=== PATIENT | male | born 1955 | race Caucasian/White ===

== ENCOUNTER 2017-08-22 15:30 | Outpatient (RCR) | payer OTHER, SELFPAY ==
--- NOTE | 2017-05-19 16:09 | HP.PTEVAL_ITS ---
Patient's Visit Information COLIN GRAFF is a 62 year old M referred to Physical Therapy by KRYSTEN Haley with a diagnosis of RTKR. Date of Evaluation: 05/19/17 Physical Therapist: Mamie Aguirre Visit Plan Frequency: 3x /Week Duration: 4-6 Weeks Plan: RIGHT TKR REHAB PROTOCOL. - Subjective Subjective: DIAGNOSIS; RIGHT TKR 05/14/17 (5 DAYS PO). Work/Leisure: RETIRED. Present symptoms: RIGHT KNEE PAIN AND SWELLING. CHRONIC L LOW BACK, BUTTOCK AND THIGH PAIN, NUMBNESS AND TINGLING. CHRONIC RIGHT TOE NUMBNESS SINCE BEFORE LUMBAR SURGERY BY DR. CHUNG ABOUT 18 MONTHS AGO. Present since : CHRONIC. Pain Scale: WORST 8/10. LEAST 2/10. Currently: 11/06. Commenced as a result of: ARTHRITIS. Symptoms at onset: RIGHT KNEE. Worse: BENDING AND STRAIGHTENING IT. PROLONGED WEIGHT BEARING. Better: REST, ICE AND ELEVATION. Gait: USING FWW. PMH: L TKR 06/26/16. LUMBAR SURGERY ABOUT 18 MONTHS AGO. PATIENT REPORTS HE IS IN GOOD HEALTH OTHERWISE. OTHER: PATIENT REPORTS HE WANTS TO TAKE THERAPY AT HIS OWN PACE. STATES HE HAS BEEN WORKING HARD ON HIS HOME EX'S BUT HE HAD TO TAKE IT EASY FOR AWHILE BECAUSE HE WAS HAVING A LOT OF BLEEDING FROM THE DISTAL ASPECT OF HIS NCISION. HE REPORTS THE BLEEDING SEEMS TO HAVE STOPPED YESTERDAY AND IT IS NOT LOOKING RED AROUND THE INCISION. PATIENT REPORTS THAT QUITE FRANKLY HIS BACK IS HIS BIGGEST PROBLEM AT THIS POINT NOT HIS KNEE. - Objective Sitting Posture: POOR. Standing Posture: POOR. INCREASED TRUNK FLEXION. Other Observations: INDEP GAIT INTO PT WITH FWW WBAT ON RIGHT LE. LEANING HEAVILY ON WALKER AND DECREASED WEIGHT BEARING TIME ON RIGHT LE. UE DEPENDENT TO TRANSFER FROM SIT TO STAND. USES HANDS AND/OR LLE TO ASSIST RIGHT LE ON/OFF TREATMENT TABLE. Motor deficit: LLE WFL. RIGHT LE: HIP 2+/5, KNEE EXT 2-/5, KNEE FLEX 2-/5, ANKLE 5/5. ROM deficit: LEFT KNEE ROM IN SUPINE WITH A HEEL SLIDE = FULL EXT TO 120 DEG FLEX. R KNEE -25 DEG EXT TO 65 DEG FLEX. Core strength: POOR. Palpation/OTHER: THERE IS A LARGE AMOUNT OF ECYMOSIS IN THE RIGHT LATERAL AND POSTERIOR THIGH REGION. MODERATE EDEMA OF THE RIGHT KNEE AND HIS INCISION IS COVERED. HE IS WEARING IMELDA HOSE ALSO. PATIENT GRIMANCES WITH C/ O BACK PAIN > RIGHT KNEE PAIN WITH TRANSFERS FROM SIT TO SUPINE AND REVERSE. SUSPECT BACK PAIN MAY BE A LIMITING FACTOR IN RIGHT KNEE REHAB. THER ACT - REVIEWED HEP AND EX GUIDELINES. PATIENT COMMUNICATES A GOOD UNDERSTANDING. - Goals Goal 1:: INDEP AND SAFE GAIT ON ALL SURFACES WITH LEAST ASSISTIVE DEVICE Goal Time Frame: 4-6 Weeks Goal 2:: DECREASED RIGHT KNEE PAIN AND SWELLING Goal Time Frame: 4-6 Weeks Goal 3:: INCREASE RIGHT KNEE FUNCTIONAL STRENGTH Goal Time Frame: 4-6 Weeks Goal 4:: INCREASE RIGHT KNEE FUNCTIONAL ROM Goal Time Frame: 4-6 Weeks Goal 5:: INDEP HEP Goal Time Frame: 4-6 Weeks - Rehabilitation Potential Rehabilitation Potential: Good - Anticipated Interventions Patient/Client Instruction: Educate patient on: Condition, Plan of Care, Risk Factors, Benefits of Fitness Program For the Purpose of:: To improve self management Therapeutic Exercise to Include: Strength training, Flexibilty training, Gait and locomotor training, Passive ROM, Active ROM For the Purpose of:: To increase ROM, To improve performance and independence with ADL's, To improve ability of physical actions for home/community/work/ leisure, To improve gait and locomotor functions Cryotherapy (ice pack, ice massage): Yes For the Purpose of:: To decrease pain, To decrease swelling/inflammation Thank you for the opportunity to evaluate your patient. For Medicare and Medicare HMO plans, please review the plan of care and approve it. It will need to be FAXED BACK to us at [phone] for Medicare purposes. Please let me know if there are questions or concerns regarding this plan of care. Physician Signature: Date:
--- NOTE | 2017-06-16 07:58 | HP.PTREVAL_ITS ---
KRYSTEN Haley, It has been my pleasure to treat COLIN GRAFF over the last 11 visits for RTKR. Please see the progress note below for an update on the physical therapy plan of care! Subjective: Pt. reports I am getting better, but I am still realyl sore. He continues to c/o increased edema and soreness at prepatellar region. It just feels so tight. He reports being HEP compliant. He is no longer used AD with gait. Objective/Function: ROM- 0-0-100deg PROM, AROM 0-2-94deg. MMT- 4-/5 throughout. Pt. has increased tenderness to lateral HS at distal insertion. Pt. continues to have increased edema, brawny like feel, similar to previous edema with LLE. GAIT: Pt. nolasco have antalgic pattern during R stance phase, he is able to ambulate without AD. STAIRS: Pt. is able to complete with reciprocal pattern with 2 HR, difficulty with descending with increasred R hip hike to complete. Plan Plan: POC extended 2-3 per week for 3-4 weeks to progress ROM, decrease edema, improve gait and progress with strengthening in order to increase overall functional mobility and decrease pain. Goals Goal 1:: INDEP AND SAFE GAIT ON ALL SURFACES WITH LEAST ASSISTIVE DEVICE Goal Time Frame: 4-6 Weeks Goal Progress: Progressing Goal 2:: DECREASED RIGHT KNEE PAIN AND SWELLING Goal Time Frame: 4-6 Weeks Goal Progress: Progressing Goal 3:: INCREASE RIGHT KNEE FUNCTIONAL STRENGTH Goal Time Frame: 4-6 Weeks Goal Progress: Progressing Goal 4:: INCREASE RIGHT KNEE FUNCTIONAL ROM Goal Time Frame: 4-6 Weeks Goal Progress: Progressing Goal 5:: INDEP HEP Goal Time Frame: 4-6 Weeks Goal Progress: Goal Met Anticipated Interventions Patient/Client Instruction: Educate patient on: Condition, Plan of Care, Risk Factors, Benefits of Fitness Program For the Purpose of:: To improve self management Therapeutic Exercise to Include: Strength training, Flexibilty training, Gait and locomotor training, Passive ROM, Active ROM For the Purpose of:: To increase ROM, To improve performance and independence with ADL's, To improve ability of physical actions for home/community/work/ leisure, To improve gait and locomotor functions Cryotherapy (ice pack, ice massage): Yes For the Purpose of:: To decrease pain, To decrease swelling/inflammation Please do not hesitate to contact me at [phone] by phone or Fax: if you have questions or concerns regarding this new plan of care! Sincerely, Rex Cole
--- NOTE | 2017-07-18 16:25 | HP.PTREVAL_ITS ---
KRYSTEN Haley, It has been my pleasure to treat COLIN GRAFF over the last 20 visits for RTKR. Please see the progress note below for an update on the physical therapy plan of care! Subjective: PATIENT REPORTS HIS BACK IS JUST ON FIRE. APPOINTMENT WITH DR. MICHELLE MILLER FOR LUMBAR SPINE NEXT FRIDAY. REPORTS HIS NECK IS A LOT BETTER. FOLLOW UP FOR RIGHT TKR ISN'T UNTIL AUG [address] PRIETO. PATIENT REPORTS HE LIKES COMING TO PT AND HIS KNEE GETS A LITTLE BETTER EACH VISIT. Objective/Function: UPON EXAM, PATIENT IS UNABLE TO TRANSFER FROM SIT TO STAND WITHOUT UE ASSIST. HE AMBULATES INDEP'LY INTO PT WITHOUT ANY ASSISTIVE DEVICES WITH A VERY ANTALGIC GAIT PATTERN LIMPING ON THE RIGHT LE AND WITH INCREASED TRUNK FLEXION. HE DOES NOT APPEAR TO BE COMFORTABLE IN ANY POSITION (SITTING, STANDING OR LYING DOWN). HE HAS GOOD RIGHT KNEE EXTENSION ROM BUT FLEXION WAS MEASURED IN SITTING AN LYING AND I WAS ONLY ABLE TO GET HIM TO 113 DEG FLEX TODAY. HE DID NOT HAVE MUCH WARM UP BEFORE MEASURMENT BECAUSE HIS BACK WAS TOO PAINFUL TO EVEN DO THE NUSTEP. HE HAS MODERATE RIGHT KNEE EDEMA AND HAS RIGHT ANTERIOR KNEE TENDERNESS BUT HIS INCISION LOOKS GOOD WITHOUT ANY SIGNS OF INFECTION. HE DOES HAVE DECREASED SCAR MOBILITY IN THE DISTAL 1/4 OF HIS INCISION. PATIENTS BACK PAIN REALLY APPEARS TO BE EFFECTING HIS KNEE REHAB Plan Plan: RECOMMEND CONTINUED PT 2-3 TIMES A WEEK X 10-12 MORE VISITS TO PROGRESS ROM, DECREASE EDEMA, IMPROVE GAIT AND PROGRESS STRENGTHENING IN ORDER TO IMPROVE OVERALL FUNCTIONAL MOBILITY AND DECREASE PAIN. PATIENT IS AGREEABLE. Goals Goal 1:: INDEP AND SAFE GAIT ON ALL SURFACES WITH LEAST ASSISTIVE DEVICE Goal Time Frame: 4-6 Weeks Goal Progress: Progressing Goal 2:: DECREASED RIGHT KNEE PAIN AND SWELLING Goal Time Frame: 4-6 Weeks Goal Progress: Progressing Goal 3:: INCREASE RIGHT KNEE FUNCTIONAL STRENGTH Goal Time Frame: 4-6 Weeks Goal Progress: Progressing Goal 4:: INCREASE RIGHT KNEE FUNCTIONAL ROM Goal Time Frame: 4-6 Weeks Goal Progress: Progressing Goal 5:: INDEP HEP Goal Time Frame: 4-6 Weeks Goal Progress: Goal Met Anticipated Interventions Patient/Client Instruction: Educate patient on: Condition, Plan of Care, Risk Factors, Benefits of Fitness Program For the Purpose of:: To improve self management Therapeutic Exercise to Include: Strength training, Flexibilty training, Gait and locomotor training, Passive ROM, Active ROM For the Purpose of:: To increase ROM, To improve performance and independence with ADL's, To improve ability of physical actions for home/community/work/ leisure, To improve gait and locomotor functions Cryotherapy (ice pack, ice massage): Yes For the Purpose of:: To decrease pain, To decrease swelling/inflammation Please do not hesitate to contact me at [phone] by phone or Fax: if you have questions or concerns regarding this new plan of care! Sincerely, Mamie Shrestha
--- NOTE | 2017-08-22 16:22 | HP.PTDCSUM ---
HP - PT D/C Summary It has been my pleasure to treat COLIN GRAFF under orders from KRYSTEN Haley, for the diagnosis of RTKR for a total of 30 visit(s). Discharge Date: 08/22/17 Please see the following information for a summary of their discharge status. - Subjective Subjective: PATIENT REPORTS HE HAS BEEN WORKING HARD ON HIS KNEE AND IT IS GETTING BETTER. HE REPORTS HIS BACK IS A BIGGER PROBLEM THAN HIS KNEE AND HE IS NOT CONCERNED ABOUT HIS KNEE. PATIENT IS EXPRESSING GREAT APPRECIATION FOR THE CARE HE HAS RECEIVED HERE AND STATES THAT HE FEELS WE GO ABOVE AND BEYOND. - Pain RIGHT KNEE Pain Intensity (Out of 10): Unrated bilat LB Pain Intensity (Out of 10): Unrated bilat. buttock Pain Intensity (Out of 10): Unrated bilat thighs Pain Intensity (Out of 10): Unrated r foot Pain Intensity (Out of 10): Unrated - Overall Improvement % Improvement: 50 - Objective Objective/Function: ALL GOALS MET. RIGHT KNEE ROM = FULL EXTENSION TO 117 DEG FLEX (LEFT KNEE WAS MEASURED FOR COMPARISON AND IT BENDS TO 120 DEG) PATIENT COMMUNICATES A GOOD UNDERSTANDING OF ALL INSTRUCTIONS GIVEN. - Goals Goal 1:: INDEP AND SAFE GAIT ON ALL SURFACES WITH LEAST ASSISTIVE DEVICE Goal Progress: Goal Met Goal 2:: DECREASED RIGHT KNEE PAIN AND SWELLING Goal Progress: Goal Met Goal 3:: INCREASE RIGHT KNEE FUNCTIONAL STRENGTH Goal Progress: Goal Met Goal 4:: INCREASE RIGHT KNEE FUNCTIONAL ROM Goal Progress: Goal Met Goal 5:: INDEP HEP Goal Progress: Goal Met - Plan Plan: D/C - D/C Information If there are questions or concerns regarding this patient's physical therapy, please feel free to call me at [phone]. Thank you for the referral of this patient. Sincerely, Mamie Shrestha
== END 2017-08-22 19:00 | disposition home or self-care (01) ==
LOC: PT 15:30
PROVIDERS: Family Provider Family Medicine; PCP Family Medicine; Visit Provider Physician Assistant Surgical
DX: M17.11 Unilateral primary osteoarthritis, right knee (principal)
CPT/HCPCS: 97016; 97110; 97162; 97530

== ENCOUNTER 2017-12-17 08:00 | Outpatient (RCR) | payer OTHER, SELFPAY ==
--- NOTE | 2017-10-15 09:28 | HP.PTEVAL_ITS ---
Patient's Visit Information COLIN GRAFF is a 62 year old M referred to Physical Therapy by NITIN GARNETT with a diagnosis of OTHER SPECIFIED AFTERCARE FOLLOWING SURGERY. Date of Evaluation: 10/15/17 Physical Therapist: Cameron Pérez PT, - Visit Plan Frequency: 3x /Week Duration: 3 Weeks Plan: POSTURAL EX'S,DLS ,LE FLEXABLITY ,CONDITIONING - Subjective Subjective: This 62 y/o male presents to physical therapy with lumbar decompression September 17 2017 byDR Calixto Tristan at [facility]. Patient had lumbar decompression October 2015.Patient d/c to next day with lumbar brace with walker few days.Patient has parathesia in bilateral legs and right foot and calcaneal left heel. Patient had heel pain prior to surgery.. Patient has orthotics for shoes. Patient to wean from brace,and advance lumbar ROM 3weeks as tolerated,10# restriction. Symptoms worse with walking,standing affects ADL' s and affects housework tasks. Patient better with rest. Patient had right TKR Apr 2017,left TKR 2015.Bowel/bladder good. Coughing /sneezing -. Patient recover affects quality of life.Sleeping good. VOCATION: retired. SOCAIL: - Pain Bilateral Back Pain Intensity (Out of 10): 1 Pain Intensity Range: 10 Left Foot Pain Intensity (Out of 10): 5 Pain Intensity Range: 10 Comment: heel - Objective POSTURE: mild foward posture. SKIN: inscion well approximate. PALPATION: mild tenderness paraspinals. GAIT: mild foward posture reciprocal pattern. NEURO: c /o parathesia bilateral legs ,light touch inact,reflexes L3-4,L4-5,L5-S1. FLEXABLITY: hams min tight. MMT:quads/hams 4/5,hip flexion 4-/5 ankle 5/5. LUMBAR ROM: flexion mod loss,extension mod loss,side glides min/mod loss. SYMMTRIES: alighn - Special Tests L/S Slump test left side: Negative L/S Slump test right side: Negative L/S Left Straight Leg Raise: Negative L/S Right Straight Leg Raise: Negative - Goals Goal 1:: Independant with HEP Goal Time Frame: 4-6 Weeks Goal 2:: Independant with posture/body mechanics for ADL'S Goal Time Frame: 4-6 Weeks Goal 3:: Patient decrease symptoms by 50% or greater with walking and standing Goal Time Frame: 4-6 Weeks Goal 4:: Patient to improve lumbar ROM min loss for function of recovery Goal Time Frame: 4-6 Weeks Goal 5:: Patient be able to perform ADL'S and light housework tasks with min limitations Goal Time Frame: 2-4 Weeks - Rehabilitation Potential Physical Therapy Diagnosis: This patient underwent s/p lumbar decompression with pain ,parathesia in legs,with decrease lumar ROM ,strength thus impairs ADL 'S and housework tasks Rehabilitation Potential: Good - Anticipated Interventions Patient/Client Instruction: Educate patient on: Condition, Plan of Care For the Purpose of:: To decrease pain, To improve ability to perform ADL's, To increase tolerance to activity/condition/position, To improve ability of physical actions for home/community/work/leisure, To improve health of tissue, To decrease soft tissue restriction, To increase flexibility/ROM, To improve endurance, To improve health and function, To improve ability to perform tasks related to life management Therapeutic Exercise to Include: Strength training, Endurance training, Body mechanics, Postural training, Flexibilty training, Dynamic Lumbar Stabilization For the Purpose of:: To decrease pain, To increase ROM, To improve muscle performance and motor function, To increase tolerance to activity/condition/ position, To improve ability of physical actions for home/community/work/leisure , To improve health of tissue, To decrease soft tissue restriction, To increase flexibility/ROM, To improve ability to perform tasks related to life management For the Purpose of:: To decrease pain, To increase ROM, To improve muscle performance and motor function, To increase tolerance to activity/condition/ position, To improve performance and independence with ADL's, To improve ability of physical actions for home/community/work/leisure, To improve health of tissue, To decrease soft tissue restriction, To improve ability to perform tasks related to life management TENS: Yes IF ES: Yes Cryotherapy (ice pack, ice massage): Yes For the Purpose of:: To decrease pain, To increase ROM, To improve nutrient delivery to tissue, To increase oxygenation perfusion, To improve health of tissue, To decrease soft tissue restriction Thank you for the opportunity to evaluate your patient. For Medicare and Medicare HMO plans, please review the plan of care and approve it. It will need to be FAXED BACK to us at [phone] for Medicare purposes. Please let me know if there are questions or concerns regarding this plan of care. Physician Signature: Date:
--- NOTE | 2017-12-17 09:27 | HP.PTDCSUM ---
HP - PT D/C Summary It has been my pleasure to treat COLIN GRAFF under orders from NITIN GARNETT, for the diagnosis of OTHER SPECIFIED AFTERCARE FOLLOWING SURGERY for a total of 22 visit(s). Discharge Date: 12/17/17 Please see the following information for a summary of their discharge status. - Subjective Subjective: Back pain is okay ,but my knees are inflammed especially my right . Parathesia in my legs are more today feet . Although ,I have been very active aroind house mowing grass . Symptoms affect my ADL'S and housework tasks. Doesnt see Dr sandoval Mar.More stiffness in lumbar - Pain Bilateral Back Pain Intensity (Out of 10): 1 Left Foot Pain Intensity (Out of 10): 0 - Overall Improvement % Improvement: 50 - Objective Objective/Function: POSTURE:MILD FOWARD POSTURE. GAIT:MILD FOWARD POSTURE ANTALGIC GAIT. LUMBAR ROM: FLEXION WNL,EXTENSION MIN LOSS,SIDE GLIDES MIN LOSS ,PAIN WITH EXTENSION. MMT: QUADS/HAMS /HIP 4/5 ,ANKLE 4/5 - Goals Goal 1:: Independant with HEP Goal Progress: Goal Met Goal 2:: Independant with posture/body mechanics for ADL'S Goal Progress: Goal Met Goal 3:: Patient decrease symptoms by 50% or greater with walking and standing Goal Progress: Progressing Goal 4:: Patient to improve lumbar ROM min loss for function of recovery Goal Progress: Progressing Goal 5:: Patient be able to perform ADL'S and light housework tasks with min limitations Goal Progress: Progressing - Plan Plan: D/C TO HEP and HP - D/C Information Discharge Comments: HEP If there are questions or concerns regarding this patient's physical therapy, please feel free to call me at [phone]. Thank you for the referral of this patient. Sincerely, Cameron Pérez, PT,
== END 2017-12-17 19:00 | disposition home or self-care (01) ==
LOC: PT 08:00
PROVIDERS: Family Provider Family Medicine; PCP Family Medicine
DX: Z48.89 Encounter for other specified surgical aftercare (principal)
CPT/HCPCS: 97014; 97110; 97162; 97530; G0283

== ENCOUNTER → 2018-01-15 10:04 | Outpatient (CLI) | payer OTHER, SELFPAY ==
[2018-01-15 12:46] LABS: Anion Gap 7 (5-15); BUN 12 mg/dL (7-18); BUN/Creat Ratio 11.7 RATIO (10-20); Chloride 106 mmol/L (98-107); Cholesterol 171 mg/dL (200); Creatinine, Serum 1.03 mg/dL (0.70-1.30); EST Glomerular Filtration Rate 77 mL/min (>60); Est Glom Filt Rate - Afr Amer 93 mL/min (>60); Glucose 96 mg/dL (74-106); High Density Lipoprotein 45 mg/dL; PSA,Total - Annual Screen 0.53 ng/mL (0.00-4.00); Potassium 4.1 mmol/L (3.5-5.1); Sodium Level 142 mmol/L (136-145); Thyroid Stim Hormone (TSH) 3.29 uIU/mL (0.358-3.74); Triglycerides 61 mg/dL; Very Low Density Lipoprotein 12 mg/dL (5-40)
[2018-01-16 08:12] LABS: Vitamin D,25 Hydroxy 29.4 ng/mL (29.95-100.01)
== END ==
PROVIDERS: Family Provider Family Medicine; PCP Family Medicine; Visit Provider Family Medicine
DX: Z00.00 Encounter for general adult medical examination without abnormal findings (principal)
CPT/HCPCS: 36415; 80048; 80061; 82306; 84153; 84443; G0103

== ENCOUNTER 2018-05-13 01:10 | Emergency (ER) | payer MEDICARE, OTHER, SELFPAY ==
[2018-05-13 01:11] VITALS: BP 157/83; PULSE 64; RESP 18; TEMP 36.5; O2SAT 97; BMI 34.4
[2018-05-13] MEDS: Ketorolac 30 MG/ML Syringe IV (01:35)
[2018-05-13 01:38] LABS: Absolute Lymphocyte Count 2.14 X10^3/ul (0.83-4.51); Absolute Neutrophil Count 3.4 X10^3/uL (2.0-7.7); Basophil# 0.07 X10^3/uL; Eosinophil# 0.44 X10^3/uL; Eosinophils% 6.4 % (0-5); Hematocrit 39.6 % (40-54); Hemoglobin 13.9 g/dl (13.0-16.5); Lymphocyte # 2.14 X10^3/ul (4.0); Lymphocyte % 31.2 % (19-41); Mean Corp Hgb Conc 35.1 g/gl (32-36); Mean Corpuscular Hgb 33.2 pg (27.0-32.0); Mean Corpuscular Volume 94.5 fL (80-94); Mean Platelet Vol. 9.3 fl (6.2-12.0); Monocyte# 0.82 X10^3/uL; Neutrophil # 3.37 X10^3/uL (2.7-7.7); Neutrophil % 49.1 % (47-70); Platelet Count 248 K/mm3 (150-450); RBC Distribution Width CV 12.8 % (11.6-14.6); Red Blood Count 4.19 M/mm3 (4.6-6.2); White Blood Count 6.9 K/mm3 (4.4-11.0)
[2018-05-13 01:45] LABS: AST(SGOT) 16 U/L (15-37); Alanine Aminotransfer ALT/SGPT 25 U/L (16-61); Albumin, Serum 3.6 g/dL (3.2-5.0); Alkaline Phosphatase 97 U/L (45-117); Anion Gap 6 (5-15); BUN 14 mg/dL (7-18); BUN/Creat Ratio 11.8 RATIO (10-20); Calcium,Total 8.9 mg/dL (8.5-10.1); Chloride 105 mmol/L (98-107); Creatinine, Serum 1.19 mg/dL (0.70-1.30); EST Glomerular Filtration Rate 65 mL/min (>60); Est Glom Filt Rate - Afr Amer 79 mL/min (>60); Estimated Creatinine Clearance 71.95 ml/min; Globulin 3.7 g/dL (2.2-4.2); Glucose 109 mg/dL (74-106); Lipase 166 U/L (73-393); Potassium 3.8 mmol/L (3.5-5.1); Protein, Total 7.3 g/dL (6.4-8.2); Sodium Level 142 mmol/L (136-145)
[2018-05-13 01:54] LABS: POSITIVE COUNT NO; POSITIVE DIFFERENTIAL NO; POSITIVE MORPHOLOGY NO
--- NOTE | 2018-05-13 02:11 | ED.DCSUM_ITS ---
- ER Visit Summary Date of Service: 05/13/18 Chief Complaint: Abdominal pain History of Present Illness: The patient is a 63 M who presents with abdominal pain. He has a history of gallstones which were seen on an MRI of his back but he has never had symptoms. Last night after eating pizza he developed right upper quadrant abdominal pain. He describes this as sharp. It was more severe at home but he only complains of mild discomfort currently. His pain gradually progressed over the course of 2 hours and is been present for a total of about 5 hours. He did vomit once. No fevers chest pain shortness of breath diarrhea. Physical Examination: Afebrile vitals are unremarkable Moist mucous the rate and rhythm Lungs clear Abdomen soft nondistended he does have some right upper quadrant abdominal tenderness without guarding with rebound no Brown's sign Alert Test Results: CBC CMP and lipase are normal. Emergency Department Course and Treatment: Patient's symptoms were already improving prior to the time of my evaluation. He has no fever or tachycardia. His laboratory studies are unremarkable. He has no leukocytosis or evidence of biliary obstruction. I do not believe he has acute cholecystitis. He was treated with IV Toradol here. He is asymptomatic on reevaluation. We discussed dietary restrictions and supportive care. I offered a surgical referral to discuss surgical options should symptoms continue. Patient states he would prefer to follow-up with his primary care physician for this. He was instructed on signs and symptoms to monitor for, conditions under which to return to the emergency department and was discharged home. Treatment Plan: [] Disposition: Discharge Impression: Biliary colic This note was generated with [employer] dictation software. It may contain incorrect words, spelling, and punctuation that were not noted in review of the chart prior to signing ED Disposition - Plan for ED Patient: Chief Complaint: Abd Pain Referrals: Jaxson Galvan MD [Primary Care Provider] -
--- NOTE | 2018-05-13 02:11 | ED.DEP ---
ED Disposition - Plan for ED Patient: Chief Complaint: Abd Pain Instructions: What are Gallstones?, Treating Gallstones Referrals: Jaxson Galvan MD [Primary Care Provider] -
[2018-05-13 02:18] VITALS: PULSE 59; RESP 16; O2SAT 98
== END 2018-05-13 02:20 | disposition home or self-care (01) ==
LOC: ED 01:51
PROVIDERS: Emergency Provider Emergency Medicine; Family Provider Family Medicine; PCP Family Medicine
DX: K80.50 Calculus of bile duct without cholangitis or cholecystitis without obstruction (principal); Z79.82 Long term (current) use of aspirin; Z79.899 Other long term (current) drug therapy
CPT/HCPCS: 80053; 83690; 85025; 96374; 99283; A4216

== ENCOUNTER 2018-06-20 19:56 | Emergency (ER) | payer MEDICARE, OTHER, SELFPAY ==
[2018-06-17 10:43] VITALS: BMI 32.2
[2018-06-20 19:57] VITALS: BP 109/62; PULSE 54; RESP 17; TEMP 37.1; O2SAT 99; BMI 33.3
[2018-06-20] MEDS: Ondansetron 4 MG/2 ML Vial IV (20:19)
--- NOTE | 2018-06-20 20:26 | US_ITS ---
STUDY: ULTRASOUND GALLBLADDER REASON FOR VISIT: Male, 63 years old. Abdominal pain. TECHNIQUE: Ultrasound evaluation of the gallbladder was performed with real-time and static clement-scale imaging. TECHNICAL QUALITY: Adequate. COMPARISON: None. FINDINGS: The liver is normal in size and echogenicity, measuring 17.4 cm. There is no intrahepatic biliary duct dilation. Gallbladder: Normal distended gallbladder. The gallbladder wall measures 3 mm. There is a positive sonographic Brown's sign. There is no pericholecystic fluid. There are multiple stones in the gallbladder. Common Bile Duct (C.B.D.): The common bile duct measures 9 mm. Shadowing stone is identified in the common duct. The right kidney is normal in size and echogenicity, measuring 12 x 5.3 x 5.8 cm. Renal cortical thickness is normal, measuring 1.9 cm. There is no mass, stone, or hydronephrosis. There is a 3.9 x 3.9 cm upper pole renal cyst. There is a 1.5 x 1.3 cm cyst in the midpole. US/Gallbladder IMPRESSION: 1. Cholelithiasis and choledocholithiasis. Positive sonographic Brown's sign is consistent with acute cholecystitis. 2. Right renal cysts. Electronically Signed: Hailey Major MD at 21:59 EST Tel , Service support ,
[2018-06-20 20:33] VITALS: BP 148/65; PULSE 49; RESP 22; O2SAT 100
[2018-06-20] MEDS: HYDROmorphone 1 MG/ML Syringe 0.5 MG IV (20:33)
[2018-06-20] MEDS: 0.9% Normal Saline 1,000 ML 150 ML IV (20:33)
[2018-06-20 20:38] LABS: Absolute Lymphocyte Count 3.33 X10^3/ul (0.83-4.51); Absolute Neutrophil Count 6.3 X10^3/uL (2.0-7.7); Basophil# 0.13 X10^3/uL; Basophil% 1.1 % (0-1); Eosinophil# 0.36 X10^3/uL; Eosinophils% 3.2 % (0-5); Hemoglobin 13.4 g/dl (13.0-16.5); Lymphocyte # 3.33 X10^3/ul (4.0); Lymphocyte % 29.4 % (19-41); Mean Corp Hgb Conc 34.4 g/gl (32-36); Mean Corpuscular Hgb 32.2 pg (27.0-32.0); Mean Corpuscular Volume 93.8 fL (80-94); Mean Platelet Vol. 9.6 fl (6.2-12.0); Monocyte# 1.14 X10^3/uL; Monocyte% 10.1 % (0-10); Neutrophil # 6.32 X10^3/uL (2.7-7.7); Neutrophil % 55.8 % (47-70); Platelet Count 246 K/mm3 (150-450); RBC Distribution Width CV 12.3 % (11.6-14.6); RBC Distribution Width SD 41.4 fl (35.1-43.9); Red Blood Count 4.16 M/mm3 (4.6-6.2); White Blood Count 11.3 K/mm3 (4.4-11.0)
[2018-06-20 20:39] LABS: AST(SGOT) 15 U/L (15-37); Alanine Aminotransfer ALT/SGPT 22 U/L (16-61); Albumin, Serum 3.5 g/dL (3.2-5.0); Alkaline Phosphatase 89 U/L (45-117); Anion Gap 9 (5-15); BUN 16 mg/dL (7-18); BUN/Creat Ratio 13.9 RATIO (10-20); Calcium,Total 8.8 mg/dL (8.5-10.1); Chloride 102 mmol/L (98-107); Creatinine, Serum 1.15 mg/dL (0.70-1.30); EST Glomerular Filtration Rate 68 mL/min (>60); Est Glom Filt Rate - Afr Amer 82 mL/min (>60); Estimated Creatinine Clearance 74.46 ml/min; Glucose 110 mg/dL (74-106); Lipase 127 U/L (73-393); POSITIVE COUNT NO; POSITIVE DIFFERENTIAL NO; POSITIVE MORPHOLOGY NO; Potassium 3.7 mmol/L (3.5-5.1); Protein, Total 7.5 g/dL (6.4-8.2); Sodium Level 137 mmol/L (136-145)
[2018-06-20] MEDS: HYDROmorphone 0.5 MG/0.5 ML SYRINGE IV (21:02)
[2018-06-20 22:12] VITALS: BP 134/80; PULSE 56; RESP 16; O2SAT 93
--- NOTE | 2018-06-20 22:49 | ED.DCSUM_ITS ---
- ER Visit Summary Date of Service: 06/20/18 Chief Complaint: Abdominal pain History of Present Illness: The patient is a 48 M who had a gallbladder attack approximate 1 month ago. Patient had been doing well until this week when he had 3 episodes of right upper quadrant pain with nausea and vomiting. Tonight's episode would not resolve. He has not been eating much this week because he did not want to trigger an attack. He has an appointment to see Dr. Robbins on July 01. Patient is currently noted to be on Zithromax for strep throat. Past history is otherwise significant for back pain and BPH. Physical Examination: Vital signs are unremarkable. Patient is lying in the bed, rolling back and forth. Head neck examination grossly unremarkable. Heart is regular rate and rhythm. Lung sounds are clear. Abdomen is tender with guarding in the right upper quadrant. Hypoactive bowel sounds are present. No overlying skin changes noted. Test Results: CBC was a white count 11.3. Chemistry studies unremarkable. LFTs significant for total bili of 1.3 and a direct bili of 0.4. EKG is sinus bradycardia at 49 bpm with single PVC. No acute ischemia. Right upper quadrant ultrasound shows cholelithiasis and choledocholithiasis with sonographic Brown sign. Common bile duct is measuring 9 mm. There is a stone identified in the common bile duct. Emergency Department Course and Treatment: Patient received 2 doses of IV Dil audid along with Zofran here. On repeat evaluation pain is improved but still present. I spoke with Dr. Espinoza, on-call for surgery. He states there is nobody available for an ERCP and the patient needs transferred. Patient is given a dose of meropenem here. He lists an allergy to penicillin, but states he developed a rash when he was 6 years old and does not know that he has received penicillin since that time. Family requested transfer to [facility]. Patient has been accepted by hospitalist and GI. Treatment Plan: [] Disposition: Transfer Impression: 1. Cholecystitis and choledocholithiasis 2. Stone in common bile duct This note was generated with [employer] dictation software. It may contain incorrect words, spelling, and punctuation that were not noted in review of the chart prior to signing ED Disposition - Plan for ED Patient: Chief Complaint: Abd Pain Referrals: Jaxson Galvan MD [Primary Care Provider] -
--- NOTE | 2018-06-20 23:15 | ED.RN ---
ATTEMPTED TO CALL REPORT, NAOMIE UNABLE BECAUSE THEY WERE IN REPORT. INSTRUCTED TO CALL BACK IN 15 MINUTES.
[2018-06-20 23:51] VITALS: BP 136/86; PULSE 55; RESP 16; TEMP 36.8; O2SAT 96
== END 2018-06-20 23:45 | disposition short-term general hospital (02) ==
LOC: ED 21:00
PROVIDERS: Emergency Provider Emergency Medicine; Family Provider Family Medicine; PCP Family Medicine
DX: K80.40 Calculus of bile duct with cholecystitis, unspecified, without obstruction (principal); J02.0 Streptococcal pharyngitis; M54.9 Dorsalgia, unspecified; N40.0 Benign prostatic hyperplasia without lower urinary tract symptoms; Z79.82 Long term (current) use of aspirin; Z79.899 Other long term (current) drug therapy; Z87.891 Personal history of nicotine dependence; R00.1 Bradycardia, unspecified
CPT/HCPCS: 76705; 80048; 80076; 83690; 85025; 93005; 96361; 96365; 96375; 99285; J2185; J7030; A4216; J2405

== ENCOUNTER → 2018-11-25 07:33 | Outpatient (CLI) | payer MEDICARE, OTHER, SELFPAY ==
--- NOTE | 2018-11-25 10:12 | NEURO ---
NCS and/or EMG Patient Report Ordering Doctor: Jaxson Galvan DATE OF SERVICE: 11/25/18 This is a right upper extremity EMG and nerve conduction study performed on this 63-year-old male with a history of numbness and tingling in his fourth and fifth digits of his right hand for approximately 1 year. There is a history of elbow pain as well as well as shoulder and neck pain. Right upper extremity sensory and motor nerve conduction studies performed. There is delayed response from the median motor and sensory nerves, with preservation of amplitudes and mild reduction of conduction velocity. The ulnar motor response is nonspecifically slowed, and the ulnar response to the sensory nerve to digit 5 is absent. The radial sensory response is normal. The median and ulnar F-wave latencies are prolonged however the ulnar F-wave latency is more severely prolonged. Right upper extremity needle electromyography is performed. Muscles evaluated included the abductor pollicis brevis, first dorsal interosseous, brachial radialis, biceps, triceps and deltoid muscles. Muscles in the ulnar digits distribution including the first dorsal interosseous did demonstrate increased insertional activity, with 1+ fibrillation potentials. All other muscles demonstrated normal insertional activity with absence of pathologic spontaneous activity. Motor unit amplitude was somewhat enlarged from the abductor pollicis brevis muscle however. Impression: 1. Severe ulnar neuropathy, this appears to be at the elbow but this test was unable to clearly localize this. 2. 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
== END ==
PROVIDERS: Family Provider Family Medicine; PCP Family Medicine; Referring Provider Family Medicine; Visit Provider Family Medicine
DX: R20.0 Anesthesia of skin (principal); R20.2 Paresthesia of skin
CPT/HCPCS: 95886; 95910

== ENCOUNTER 2019-01-27 06:00 | Day surgery (SDC) | payer MEDICARE, OTHER, SELFPAY ==
--- NOTE | 2019-01-21 23:28 | HP.PCM_ITS ---
History and Physical History and Physical Patient Name: Carl Brand : 1955 From: ADRI KEANE PA-C DATE OF SURGERY: 01/27/2019 SCHEDULED PROCEDURE: right carpal tunnel release and release of right ulnar nerve HISTORY OF PRESENT ILLNESS: Preoperative history and physical exam was performed on January 21, 2019. This is a 63-year-old male who has been having ongoing numbness and tingling in his right nondominant hand. This is been going on for approximately 1 year. Patient has numbness and tingling in the right ring finger and small finger as well as pain. He also has numbness and tingling into the long finger. Patient has tried nighttime bracing which she has not seen any significant relief in symptoms. Patient does complain of weakness in the hand and drops things occasionally. Patient denies trauma or injury. Patient has had an EMG nerve conduction study exam which is shown severe ulnar neuropathy and moderate carpal tunnel syndrome. After discussion with Dr. Richie Cowan, the patient would like to proceed with a right carpal tunnel release and right ulnar nerve release. Patient denies chest pain, shortness of breath, fevers chills, recent infections. REVIEW OF SYSTEMS: ROS: Const: Denies change in appetite, fever,or weight change. CV: Denies chest pain, heart murmur and irregular heartbeat. Resp: Denies cough, pneumonia, SOB, tuberculosis and wheezing. GI: Denies constipation, diarrhea, difficulty swallowing, heartburn, nausea, bloody stools and vomiting. : Urinary: denies incontinence. Musculo: Reports leg swelling, but denies limp, trouble walking and weakness. Skin: Denies Raynaud's, history of shingles and tattoo. Neuro: Reports numbness/tingling but denies ambulatory dysfunction, dizziness and tremor. Psych: Denies anxiety, insomnia and stress. Isaac/Lymph: Denies anemia, bleeding/bruising tendency and past transfusion. Reviewed, no changes. PAST MEDICAL HISTORY: Advance Care Plan: Other Directive, POA Effective Date: 04/30/2017 Other Directive, LIVING WILL Effective Date: 04/30/2017 PMH: Medical Problems: Arthritis, Hard of Hearing Accidents: Sports Related Injury - TORN ACL LT KNEE 1989 Surgical Hx: Bilat Knee Arthroscopy - (1990) @[facility] DR[facility] CLIFTON Back - (10/2015) @[facility] Knee Replacement LT - (06/26/2016) [email or web address] Knee Replacement RT - (05/14/2017) [email or web address] Back - (2018) Gallbladder - (2018) Anesthesia Complications: None Assistive Devices: Glasses Reviewed, no changes. SOCIAL HISTORY: SH: Marital: .Occupation: Retired.Work Status: Retired.Hand Dominance: Left- handed. Personal Habits: Cigarette Use: Former.Alcohol: Occasionally.Drug Use: Former Illegal Drug User.Enjoy Exercising: Exercises 1-3 X/Week. Reviewed, no changes. VITALS: Ht: 74 Wt: 268lb Wt k.565 BMI: 34.4 BP: 116/72 Pulse: 68 Resp: 16 T: 98.3 T: 36.8C ALLERGIES: Penicillin MEDICATIONS: Flomax 0.4 mg 1 cap PO daily, Aspir-81 81 mg 1 by mouth every day PRE-OP EXAM: General appearance:NORMAL Other: Eyes: Conjunctivae and lids: NORMAL Pupils: ERR Ears, Nose, Mouth, and Throat: NORMAL Other: Inspection of lips, teeth and gums: NORMAL Other: Neck: Examination of neck: no masses noted. Respiratory: Assessment of respiratory effort: NORMAL Other: Auscultation of lungs: clear to auscultation no wheezes, rhonchi or rales. Cardiovascular: Auscultation of heart: regular rate and rhythm, no murmurs, gallops or rubs. Gastrointestinal: Exam of abdomen: soft, nontender, nondistended bowel sounds present. PHYSICAL EXAMINATION: On exam of the right hand there is mild intrinsic wasting. Patient has full composite fist and full extension of fingers. He has excellent range of motion of the right elbow with no subluxation of the nerve appreciated. Special tests: Positive Tinel's at the wrist, positive Tinel's at the elbow. 2. discrimination: 6 mm long finger, 11 mm small and ring finger, 2 mm index finger and thumb. IMAGING STUDIES: EMG nerve conduction study exam reveals severe ulnar neuropathy and moderate carpal tunnel syndrome on the right IMPRESSION: 1. Severe right elbow ulnar neuropathy 2. Moderate right carpal tunnel syndrome PLAN: Dr. Richie Cowan did discuss and review with the patient all treatment options including surgical versus nonsurgical options. Patient does wish to proceed with the above-stated procedure. Potential risks, benefits, and complications of the procedure were discussed in detail including but not limited to , infection, nerve and blood vessel damage, persistent pain, numbness, tingling, paresthesias, blood clot, pulmonary embolism, and requirement for possible further surgery. The patient expressed full understanding and has no further questions for the doctor. Patient does agree to proceed with the above-stated procedure and has signed the surgery consent form. This dictation was created using voice recognition software. Phonetic and/or grammatical errors may exist.. ___ I have re-examined the patient. There are no clinical changes since date of exam. ___ See progress notes for changes. ___ Dictated on admission Date: Time: Signature:
[2019-01-27] VITALS (8 sets, daily range): BP systolic 89–141; BP diastolic 63–83; PULSE 42–63; RESP 16–18; TEMP 36.2–36.5; O2SAT 93–100; BMI 34.8
[2019-01-27] MEDS: Cefazolin 2 GM in 0.9% Normal Saline 100 ML IV (07:07)
--- NOTE | 2019-01-27 08:08 | OP.PCM_ITS ---
Report of Operation Date of Procedure: 01/27/19 Pre-Operative Diagnosis: 1. Right carpal tunnel syndrome 2. Right cubital Tunnel syndrome Post-Operative Diagnosis: 1. Right carpal tunnel syndrome 2. Right cubital Tunnel syndrome Surgery/Procedure Performed:: 1. Right ulnar nerve release 2. Right carpal tunnel release Description of Surgical Findings:: Complete release of both nerves technical support specialist: Veronica Tyler Type of Anesthesia:: General Anesthesiologist: Eugene Ceballos Special Medications: 2 g Ancef Specimen's removed: none Estimated Blood Loss (mL): 5 Fluids Replaced: 800 mL crystalloid Description of Procedure: Brief history operative indications: 53-year-old male with EMG nerve conduction study consistent with Cubital Tunl and Carpal Tunl. Patient wished to proceed with right open cubital and carpal tunnel release. After discussing risks and benefits including but not limited to blood loss, DVTs, PEs, neurovascular damage, infection, hematoma and general risk of anesthesia, the patient demonstrated understanding wish to proceed with right open carpal tunnel release we also discussed the possibility of nerve injury and need to transpose the ulnar nerve. Procedure: On the date of the procedure, the patient's right upper extremity was marked in the preoperative area. Patient was taken back to the operating room. Patient was given light sedation. All bony prominences are identified well-padded. Anesthesia assumed control C-spine and airway and remained in control throughout the remainder the procedure. The right upper extremity was prepped in sterile fashion. Surgeon then scrub. Upon reentering the room, the right upper extremity was prepped in a standard orthopedic fashion. A tourniquet was placed on the right upper arm. A timeout was called and everyone agreed upon the side, the site, the procedure to be performed, patient identity and antibiotics given. The incisions were marked out. Carpal tunnel incision was taken at the skin subtenons tissue fat down to fascia. Fascia was then lightly tethered until the median nerve was visible. A Massillon was placed proximally and distally, and then scissors were placed proximally and distally to release the transverse carpal ligament. During the release the others were never completely closed. The Massillon was then placed proximally and distally once more to verify the transverse carpal ligament had been adequately released. The wound was then copiously irrigated out with normal saline. Wound was then closed using 3-0 nylon suture. 10 cc of 50-50 mixture of 1% lidocaine and 0.5% Sensorcaine without epinephrine injection was given. Our attention was then directed towards the ulnar nerve/right elbow. At this time the skin incision was made just through skin. Blunt dissection was taken down through subtenons tissue fat down to fascia. Once we identified the proximal portion of the nerve we followed it distally. Once we identified the cubital tunnel the roof of the tunnel was released using sharp dissection protecting the nerve with a Massillon. We did this with an anterior based flap. We then bluntly dissected proximally distally freeing up the nerve along the course or other areas of compression may be. Once the nerve was felt to be completely freed the elbow was taken through range of motion. No subluxation of the nerve was noted. At this time the wound was jessee irrigated out normal saline. Wound was closed using 2-0 Vicryl and 4-0 Monocryl. Steri-Strips were placed. Local medication was placed for pain control. Xeroform dressing was placed, sterile dressing was placed, compressive dressing was placed. Tourniquet was let down. Posterior splint was placed. Patient was awakened by anesthesia and transferred to the PACU for recovery. Postoperative plan: Patient will have splint removed in 2 weeks in the office. He can start range of motion and strengthening as tolerated at that time. Grafts/Implants Used: none - Complications No intraoperative complications - Admit VTE Documentation VTE Present on Admission: No VTE Mechan Device Prophylaxis: SCD's VTE Pharm Prophylaxis ordered?: No Reason prophylaxis not ordered:: Treatment Not Indicated
[2019-01-27] MEDS: Bupivacaine Mpf 0.5% 30 ML VIAL (08:09)
[2019-01-27] MEDS: Ketorolac 30 MG/ML Syringe IV (09:00)
== END 2019-01-27 09:39 | disposition home or self-care (01) ==
LOC: SDC 06:01 → AC 06:02
PROVIDERS: Family Provider Family Medicine; PCP Family Medicine; Referring Provider Specialist; Visit Provider Specialist
PROC: (CPT 64721; principal; 2019-01-27 07:00)
DX: G56.01 Carpal tunnel syndrome, right upper limb (principal); G56.21 Lesion of ulnar nerve, right upper limb; M19.90 Unspecified osteoarthritis, unspecified site; Z79.82 Long term (current) use of aspirin; Z79.899 Other long term (current) drug therapy; Z96.653 Presence of artificial knee joint, bilateral; Z87.891 Personal history of nicotine dependence
CPT/HCPCS: 01810; 64718; 64721; J7120; A4216

== ENCOUNTER → 2019-02-12 12:14 | Outpatient (CLI) | payer MEDICARE, OTHER, SELFPAY ==
[2019-01-27 06:31] VITALS: BMI 34.8
--- NOTE | 2019-02-12 12:29 | EKG12_ITS ---
Test Reason : PRE OP Blood Pressure : / mmHG Vent. Rate : 058 BPM Atrial Rate : 058 BPM P-R Int : 182 ms QRS Dur : 110 ms QT Int : 408 ms P-R-T Axes : 018 -16 002 degrees QTc Int : 400 ms Sinus bradycardia Otherwise normal ECG Confirmed by PAUL NUGENT, DOUGLAS ([id number]), web content editor VAUGHN VERONICA ([id number]) on 02/15/2019 1:32:54 PM Referred By: RADHA Camarena Confirmed By:JANES MILLER MD
[2019-02-12 13:16] LABS: Hematocrit 41.1 % (40-54); Mean Corp Hgb Conc 34.1 g/dL (32-36); Mean Corpuscular Hgb 32.3 pg (27.0-32.0); Mean Corpuscular Volume 94.9 fL (80-94); Mean Platelet Vol. 9.6 fl (6.2-12.0); Platelet Count 210 K/mm3 (150-450); RBC Distribution Width CV 12.4 % (11.6-14.6); RBC Distribution Width SD 43.8 fl (35.1-43.9); Red Blood Count 4.33 M/mm3 (4.6-6.2); White Blood Count 7.1 K/mm3 (4.4-11.0)
[2019-02-12 13:39] LABS: Anion Gap 7 (5-15); BUN 15 mg/dL (7-18); BUN/Creat Ratio 11.9 RATIO (10-20); Calcium,Total 8.7 mg/dL (8.5-10.1); Chloride 109 mmol/L (98-107); Creatinine, Serum 1.26 mg/dL (0.70-1.30); EST Glomerular Filtration Rate 61 mL/min (>60); Est Glom Filt Rate - Afr Amer 74 mL/min (>60); Glucose 103 mg/dL (74-106); Potassium 3.7 mmol/L (3.5-5.1); Sodium Level 142 mmol/L (136-145)
== END ==
PROVIDERS: Family Provider Family Medicine; PCP Family Medicine; Referring Provider Physician Assistant Surgical; Visit Provider Physician Assistant Surgical
DX: Z01.810 Encounter for preprocedural cardiovascular examination (principal); Z01.818 Encounter for other preprocedural examination
CPT/HCPCS: 36415; 80048; 85027; 93005

== ENCOUNTER → 2019-05-06 11:52 | Outpatient (CLI) | payer MEDICARE, OTHER, SELFPAY ==
[2019-01-27 06:31] VITALS: BMI 34.8
[2019-05-06 14:52] LABS: Cholesterol 191 mg/dL (200); High Density Lipoprotein 52 mg/dL; PSA,Total - Annual Screen 1.33 ng/mL (0.00-4.00); Triglycerides 63 mg/dL; Very Low Density Lipoprotein 13 mg/dL (5-40)
[2019-05-06 15:10] LABS: Vitamin D,25 Hydroxy 29.7 ng/mL (29.95-100.01)
== END ==
PROVIDERS: Family Provider Family Medicine; PCP Family Medicine; Referring Provider Family Medicine; Visit Provider Family Medicine
DX: Z00.00 Encounter for general adult medical examination without abnormal findings (principal); E55.9 Vitamin D deficiency, unspecified; E66.9 Obesity, unspecified; Z12.5 Encounter for screening for malignant neoplasm of prostate
CPT/HCPCS: 36415; 80061; 82306; 84153; G0103

== ENCOUNTER 2019-07-19 15:30 | Outpatient (RCR) | payer MEDICARE, OTHER, SELFPAY ==
[2019-01-27 06:31] VITALS: BMI 34.8
--- NOTE | 2019-02-25 16:30 | HP.PTEVAL ---
Patient's Visit Information COLIN GRAFF is a 63 year old M referred to Physical Therapy by Dave Camarena PA-C with a diagnosis of L rot cuff tear. Date of Evaluation: 02/25/19 Physical Therapist: Praveen Jackson, PT, ATC - Visit Plan Frequency: 2x /Week Duration: 4-6 Weeks Plan: Rotator cuff strengthening - Subjective Findings: DOS: 02/17/19. Pt reports he fell in October of this year which resulted in a tear of the L rotator cuff. Pt reports he is glad he had his shoulder repaired, but he is in a lot of pain still at this time. No tingling or numbness in L UE. Pt sreports he has sleep difficulty secondary to pain. Pt is L hand dominant. Pt reports he has not been moving his shoulder, but has been moving his L elbow. Pt is retired at this time. Pt reports his goal is to get better soon so he can go on vacation to [facility]. 1/10 pain at rest, 4/10 pain at worst (taking off his sling) - Pain L shoulder Pain Intensity (Out of 10): 1 Pain Intensity Range: 4 - Objective Neuro: B UE sensation is WNL to light touch. B bicepital reflex= 2/3. Observation: Incisions are healing well. No signs of infection. echymosis present. ROM: R shoulder AROM: flex= 105, abd= 75, ER= 30, IR WNL; L shoulder PROM: flex= 30, abd= 45. MMT: R shoulder is 4/5 in available range. L shoulder not tested - Goals Goal 1:: Decrease L shoulder pain x 50% to aid with sleep Goal Time Frame: 4-6 Weeks Goal 2:: Increase L shoulder ROM abd and flex x 60 degrees to aid with overhead lifting Goal 3:: Increase L shoulder strength x 1 grade to aid with IADL's Goal Time Frame: 4-6 Weeks Goal 4:: I with HEP Goal Time Frame: 4-6 Weeks - Rehabilitation Potential Physical Therapy Diagnosis: L shoulder pain, weakness, and limited ROM secondary to L rot cuff tear Rehabilitation Potential: Good - Anticipated Interventions Patient/Client Instruction: Educate patient on: Condition, Plan of Care For the Purpose of:: To improve self management Therapeutic Exercise to Include: Strength training, Endurance training, Flexibilty training, Passive ROM, Active ROM, Scapular Strength/Stabilization For the Purpose of:: To decrease pain, To increase ROM, To improve muscle performance and motor function Cryotherapy (ice pack, ice massage): Yes For the Purpose of:: To decrease pain Thank you for the opportunity to evaluate your patient. For Medicare and Medicare HMO plans, please review the plan of care and approve it. It will need to be FAXED BACK to us at [phone] for Medicare purposes. For Medicare only, by signing this I certify the plan of care. Please let me know if there are questions or concerns regarding this plan of care. Physician Signature: Date:
--- NOTE | 2019-05-06 13:24 | HP.PTREVAL ---
Dave Camarena PA-C, It has been my pleasure to treat COLIN GRAFF over the last 19 visits for L rot cuff tear. Please see the progress note below for an update on the physical therapy plan of care! Subjective: Pt reports mild pain this date Objective/Function: L shoulder pain 1-08/09. L shoulder ROM: flex= 130 (PROM 145), abd= 80, ER= 35. L shoulder MMT: 3/5 in available ROM. Pt is progressing well toward Rx goals Plan Plan: Begin Phase 3 after vacation Goals Goal 1:: Decrease L shoulder pain x 50% to aid with sleep Goal Time Frame: 4-6 Weeks Goal 2:: Increase L shoulder ROM abd and flex x 60 degrees to aid with overhead lifting Goal 3:: Increase L shoulder strength x 1 grade to aid with IADL's Goal Time Frame: 4-6 Weeks Goal 4:: I with HEP Goal Time Frame: 4-6 Weeks Anticipated Interventions Patient/Client Instruction: Educate patient on: Condition, Plan of Care For the Purpose of:: To improve self management Therapeutic Exercise to Include: Strength training, Endurance training, Flexibilty training, Passive ROM, Active ROM, Scapular Strength/Stabilization For the Purpose of:: To decrease pain, To increase ROM, To improve muscle performance and motor function Cryotherapy (ice pack, ice massage): Yes For the Purpose of:: To decrease pain Please do not hesitate to contact me at [phone] by phone or if you have questions or concerns regarding this new plan of care! Sincerely, Praveen Jackson, PT, ATC
--- NOTE | 2019-06-09 10:40 | HP.PTEVAL2_ITS ---
Patient's Visit Information COLIN GRAFF is a 64 year old M referred to Physical Therapy by Dave Camarena PA-C with a diagnosis of LUMBAR STRAIN. Date of Evaluation: 06/09/19 Physical Therapist: Mamie Shrestha PT, Cert MDT - Visit Plan Frequency: 2-3x /Week Duration: 4-6 Weeks Plan: *PATIENT CURRENTLY ALSO IN PT S/P LEFT ROTATOR CUFF REPAIR JAN 2019 AND IS HAVING A LOT OF LEFT ELBOW PAIN WITH ORTHO CONSULT PENDING*. AQUATIC THERAPY FOR PAIN RELEIF, POSTURE CORRECTION/STRENGTHENING, INSTRUCTION IN APPROPRIATE BODY MECHANICS AND ACTIVITY MODIFICATIONS. DLS STARTING WITH A NEUTRAL SPINE PROGRESSING ROM TOLERATED. CLAUDIA LE ROM, STRETCHING AND STRENGTHENING. HEP INSTRUCTION. - Subjective Findings: Work/Leisure: RETIRED. Present symptoms: LOW BACK PAIN, CLAUDIA LE PAIN, NUMBESS AND TINGLING RIGHT > LEFT WITH TINGLING IN TOES. PATIENT REPORTS THAT IN GENERAL HE HAS PAIN ALL OVER AND JUST DOESN'T FEEL WELL. HE PLANS TO TALK TO HIS DOCTOR ABOUT THIS. Present since: STEADILIY GETTING WORSE MONTHS. Pain Scale: WORST 8/10, LEAST 3/10. Currently: 3/10. Commenced as a result of: NO APPARENT REASON. Symptoms at onset: STIFFNESS IN BACK. Worse: PROLONGED SITTING, PROLONGED STANDING, HUMIDITY. Better: FREQUENT CHANGE OF POSITION, HEATING PAD. Disturbed sleep: YES. Previous history/Previous treatment: PHYSICAL THERAPY. FIRST BACK SURGERY (DR. CHUNG) WAS 2016, SECOND BACK SURGERY WAS 2018 (DR. MICHELLE MILLER). NO FUSION PER PATIENT REPORT. JUST DECOMPRESSIONS. Coughing/sneezing/straining: NEGATIVE. Gait: ANTALGIC. NO FALLS. Difficulty initiating urinatin: NO. Accidents: NO. Unexplained weight loss: NO. Imaging: NONE RECENT. PMH: CLAUDIA TKR'S. RIGHT ULNAR N. SURGERY, LEFT ROTATOR CUFF REPAIR FEB 17 2019 - CURRENTLY IN REHAB HERE AT . LEFT ELBOW PAIN - ORTHO CONSULT PENDING. - Objective Objective: Sitting/Standing Posture: POOR. Lordosis: REDUCED. Lateral shift: LEFT. Active Correction of posture: WORSE. Other Observations: INDEP ANTALGIC GAIT INTO PT LIMPING ON CLAUDIA LE'S AND WITH INCREASED TRUNK FLEXION. DECREASED CADANCE AND WIDE BASE OF SUPPORT. Motor deficit: CLAUDIA LE'S ARE 5/5 WITH MMT'ING BUT PATIENT REPORTS FEELING REALLY WEAK IN HIS CORE AND LEGS ESPECIALLY THE DAY PROGRESSES. Sensory deficit: RIGHT LAT KNEE HYPERSENSATIVITY. RIGHT LATERAL LEG SORENESS AND RIGHT FOOT NUMBNESS. LEFT LAT KNEE NUMBNESS AND LEFT FOOT TINGLING. ROM deficit: MILD CLAUDIA HS TIGHTNESS (KNEE FLEX NT). Reflexes: NT. Dural Signs: NEGATIVE CLAUDIA LE DURAL SIGNS. Lumbar mvmt loss: flex - NIL. ext - HAI. R SG - HAI. L SG - HAI. PATIENT WITH INCREASED BACK PAIN WITH LUMBAR ROM TESTING ALL PLANES EXCEPT FLEX AND ESPECIALLY WITH CLAUDIA SG TESTING. Core strength: POOR. Palpation: TENDERNESS WITH PALPATION OF THE LOWER LUMBAR SPINE AND SACRAL AREA. - Goals Goal 1:: DECREASE C/O BACK AND CLAUDIA LE SX'S. Goal Time Frame: 4-6 Weeks Goal 2:: IMPROVE PERSONAL CARE, LIFTING, WALKING, SITTING, STANDING, SLEEP, SOCIAL LIFE, TRAVEL AND HOMEMAKING FUNCTION. Goal Time Frame: 4-6 Weeks Goal 3:: INSTRUCT IN PROPHYLAXIS Goal Time Frame: 4-6 Weeks - Rehabilitation Potential Rehabilitation Potential: Fair - Anticipated Interventions Patient/Client Instruction: Educate patient on: Condition, Plan of Care, Risk Factors, Benefits of Fitness Program For the Purpose of:: To improve self management Therapeutic Exercise to Include: Strength training, Body mechanics, Postural training, Flexibilty training, Gait and locomotor training, In an aquatic setting, Dynamic Lumbar Stabilization For the Purpose of:: To decrease pain, To increase ROM, To improve muscle performance and motor function, To increase tolerance to activity/condition/position, To improve ability of physical actions for home/community/work/leisure, To improve gait and locomotor functions Thank you for the opportunity to evaluate your patient. For Medicare and Medicare HMO plans, please review the plan of care and approve it. It will need to be FAXED BACK to us at [phone] for Medicare purposes. For Medicare only, by signing this I certify the plan of care. Please let me know if there are questions or concerns regarding this plan of care. Physician Signature: Date:
--- NOTE | 2019-06-18 11:00 | HP.PTDCSUM ---
HP - PT D/C Summary It has been my pleasure to treat COLIN GRAFF under orders from Dave Camarena PA-C, for the diagnosis of L rot cuff tear 02/17/19 for a total of 29 visit(s). Discharge Date: Please see the following information for a summary of their discharge status. - Subjective Subjective: No pain this date - Pain L shoulder Pain Intensity (Out of 10): 0 - Overall Improvement % Improvement: 100 - Objective Objective/Function: L shoulder pain 0/10. L shoulder ROM: flex= 145, abd= 135, ER= 35, IR WNL. L shoulder MMT: flex and ER 4-/5. abd and IR = 5/5. I with HEP. Rx goals achieved - Goals Goal 1:: Decrease L shoulder pain x 50% to aid with sleep Goal Progress: Goal Met Goal 2:: Increase L shoulder ROM abd and flex x 60 degrees to aid with overhead lifting Goal Progress: Goal Met Goal 3:: Increase L shoulder strength x 1 grade to aid with IADL's Goal Progress: Goal Met Goal 4:: I with HEP Goal Progress: Goal Met - Plan Plan: Discharge - D/C Information If there are questions or concerns regarding this patient's physical therapy, please feel free to call me at [phone]. Thank you for the referral of this patient. Sincerely, Praveen Jackson, PT, ATC
--- NOTE | 2019-07-19 16:40 | HP.PTDCS(2) ---
HP - PT D/C Summary (2) It has been my pleasure to treat COLIN GRAFF under orders from Dave Camarena PA-C, for the diagnosis of LUMBAR STRAIN for a total of 10 visit(s). Discharge Date: 07/19/19 Please see the following information for a summary of their discharge status. - Subjective Subjective: PATIENT REPORTS HE IS A LOT BETTER. STATES HE EVEN CUT UP TWO TREES. STATES THAT THE THINGS HE RE-LEARNED ARE HELPING A LOT. STATES HE HASN'T FELT THIS GOOD IN A LONG TIME. REPORTS HE KNOWS HE WILL ALWAYS HAVE THE NERVE PAIN AND THAT IS NOT WHAT HE CAME FOR. HE STATES HE ISN'T HAVING ANY PAIN RIGHT NOW. PATIENT REPORTS HE IS DONE WITH HIS SHOULDER THERAPY AND HE WANTS TO BE DONE WITH HIS BACK THERAPY NOW TOO. - Overall Improvement % Improvement: 80 - Objective Objective/Function/Assessment: PATIENT WAS SEEN TODAY FOR RE-ASSESSMENT OF PROGRESS TOWARD THE SET PT GOALS AND THE NEED FOR FURTHER PHYSICAL THERAPY VS READINESS FOR DISCHARGE. PATIENT HAS MADE GREAT PROGRESS WITH PT THIS EPISODE OF CARE AND ALL GOALS HAVE BEEN MET. STRONGLY ENCOURAGED PATIENT TO CONTINUE WITH INDEP WATER EX. UPON EXAM TODAY: INDEP GAIT INTO PT STILL LIMPING ON CALUDIA LE'S AND WITH INCREASED TRUNK FLEXION. DECREASED CADANCE AND WIDE BASE OF SUPPORT. Motor deficit: CLAUDIA LE'S ARE 5/5 WITH MMT'ING. Sensory deficit: NO PAIN TODAY BUT RIGHT LATERAL LEG SORENESS AND RIGHT FOOT NUMBNESS. LEFT LAT KNEE NUMBNESS AND LEFT FOOT TINGLING. ROM deficit: MILD CLAUDIA HS TIGHTNESS (KNEE FLEX NT). Reflexes: NT. Dural Signs: NEGATIVE CLAUDIA LE DURAL SIGNS. Lumbar mvmt loss: flex - NIL. ext - HAI. R SG - MOD. L SG - HAI. PATIENT WITH INCREASED BACK PAIN WITH LUMBAR ROM TESTING ALL PLANES EXCEPT FLEX AND ESPECIALLY WITH RIGHT SG TESTING EVEN THOUGH HE HAS MORE ROM TO THE RIGHT THAN LEFT. Core strength: POOR. Palpation: NO ACUTE LUMBOSACRAL TENDERNESS. - Goals Patient Goals: Improve Mobility, Improve Function, Decrease Pain Goal 1:: DECREASE C/O BACK AND CLAUDIA LE SX'S. Goal Progress: Goal Met Goal 2:: IMPROVE PERSONAL CARE, LIFTING, WALKING, SITTING, STANDING, SLEEP, SOCIAL LIFE, TRAVEL AND HOMEMAKING FUNCTION. Goal Progress: Goal Met Goal 3:: INSTRUCT IN PROPHYLAXIS Goal Progress: Goal Met - Plan Plan: D/C. PATIENT AGREEABLE. - D/C Information If there are questions or concerns regarding this patient's physical therapy, please feel free to call me at [phone]. Thank you for the referral of this patient. Sincerely, Mamie Shrestha, PT, Cert MDT
== END 2019-07-19 19:00 | disposition home or self-care (01) ==
LOC: PT 15:30
PROVIDERS: Family Provider Family Medicine; PCP Family Medicine; Referring Provider Family Medicine; Visit Provider Physician Assistant Surgical
DX: G56.21 Lesion of ulnar nerve, right upper limb (principal); S46.012D Strain of muscle(s) and tendon(s) of the rotator cuff of left shoulder, subsequent encounter; M19.012 Primary osteoarthritis, left shoulder
CPT/HCPCS: 97110; 97113; 97140; 97161; 97164; 97530

== ENCOUNTER → 2020-02-03 10:48 | Outpatient (CLI) | payer MEDICARE, OTHER, SELFPAY ==
[2019-01-27 06:31] VITALS: BMI 34.8
--- NOTE | 2020-02-03 10:59 | EKG12_ITS ---
Test Reason : PRE OP Blood Pressure : / mmHG Vent. Rate : 060 BPM Atrial Rate : 060 BPM P-R Int : 198 ms QRS Dur : 102 ms QT Int : 410 ms P-R-T Axes : 003 -16 010 degrees QTc Int : 410 ms Normal sinus rhythm Normal ECG Confirmed by PAUL NUGENT, DOUGLAS ([id number]), department editor CROW HEDRICK ([id number]) on 02/07/2020 9:25:01 AM Referred By: Sg Sweet Confirmed By:JANES MILLER MD
[2020-02-03 11:02] LABS: Hematocrit 44.8 % (40-54); Hemoglobin 15.7 g/dL (13.0-16.5); Mean Corpuscular Hgb 33.1 pg (27.0-32.0); Mean Corpuscular Volume 94.3 fL (80-94); Mean Platelet Vol. 8.9 fl (6.2-12.0); Platelet Count 239 K/mm3 (150-450); RBC Distribution Width SD 44.6 fl (35.1-43.9); Red Blood Count 4.75 M/mm3 (4.6-6.2); White Blood Count 6.2 K/mm3 (4.4-11.0)
[2020-02-03 11:25] LABS: Anion Gap 3 (5-15); BUN 15 mg/dL (7-18); BUN/Creat Ratio 12.7 RATIO (10-20); Calcium,Total 9.3 mg/dL (8.5-10.1); Chloride 107 mmol/L (98-107); Creatinine, Serum 1.18 mg/dL (0.70-1.30); EST Glomerular Filtration Rate 66 mL/min (>60); Est Glom Filt Rate - Afr Amer 79 mL/min (>60); Glucose 101 mg/dL (74-106); Potassium 4.4 mmol/L (3.5-5.1); Sodium Level 139 mmol/L (136-145)
== END ==
PROVIDERS: PCP Family Medicine; Referring Provider Orthopaedic Surgery; Visit Provider Orthopaedic Surgery
DX: Z01.818 Encounter for other preprocedural examination (principal); Z01.810 Encounter for preprocedural cardiovascular examination; Z11.59 Encounter for screening for other viral diseases
CPT/HCPCS: 36415; 80048; 85027; 87635; 93005; 94799; U0003

== ENCOUNTER 2020-03-20 09:31 | Day surgery (SDC) | payer MEDICARE, OTHER, SELFPAY ==
[2019-01-27 06:31] VITALS: BMI 34.8
[2020-03-20 09:51] VITALS: BP 160/94; PULSE 65; RESP 18; TEMP 36.9; O2SAT 98; BMI 37.6
[2020-03-20] MEDS: Lactated Ringers 1,000 ML 100 ML IV (09:56)
--- NOTE | 2020-03-20 13:47 | OP.PCM_ITS ---
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
[2020-03-20 14:11] VITALS: BP 150/97; BP 160/94; PULSE 126; RESP 16; TEMP 36.5; O2SAT 96
[2020-03-20 14:19] VITALS: BP 142/92; BP 160/94; PULSE 121; RESP 16; O2SAT 95
[2020-03-20 14:30] VITALS: BP 134/88; BP 160/94; PULSE 101; RESP 16; O2SAT 95
[2020-03-20 14:31] VITALS: BP 140/93; BP 160/94; PULSE 76; RESP 16; TEMP 36.6; O2SAT 96
[2020-03-20 14:59] VITALS: BP 160/94
== END 2020-03-20 15:21 | disposition home or self-care (01) ==
LOC: SDC 09:32 → AC 09:33
PROVIDERS: PCP Family Medicine; Referring Provider Orthopaedic Surgery; Visit Provider Orthopaedic Surgery
PROC: (CPT 23030; principal; 2020-03-20 11:50)
DX: T81.40XA Infection following a procedure, unspecified, initial encounter (principal); M19.90 Unspecified osteoarthritis, unspecified site; Z87.891 Personal history of nicotine dependence; Z96.653 Presence of artificial knee joint, bilateral
CPT/HCPCS: 01610; 23030; 87070; 87075; 87205; J7120; J2405

== ENCOUNTER → 2020-06-01 10:00 | Outpatient (CLI) | payer MEDICARE, OTHER, SELFPAY ==
[2020-06-01 12:53] LABS: Anion Gap 4 (5-15); BUN 18 mg/dL (7-18); BUN/Creat Ratio 14.6 RATIO (10-20); Calcium,Total 9.2 mg/dL (8.5-10.1); Chloride 109 mmol/L (98-107); Cholesterol 187 mg/dL (200); Creatinine, Serum 1.23 mg/dL (0.70-1.30); EST Glomerular Filtration Rate 62 mL/min (>60); Est Glom Filt Rate - Afr Amer 75 mL/min (>60); Glucose 85 mg/dL (74-106); High Density Lipoprotein 48 mg/dL; Potassium 4.5 mmol/L (3.5-5.1); Sodium Level 142 mmol/L (136-145); Thyroid Stim Hormone (TSH) 2.41 uIU/mL (0.358-3.74); Triglycerides 85 mg/dL; Very Low Density Lipoprotein 17 mg/dL (5-40)
== END ==
PROVIDERS: PCP Family Medicine; Visit Provider Family Medicine
DX: Z00.00 Encounter for general adult medical examination without abnormal findings (principal)
CPT/HCPCS: 36415; 80048; 80061; 84443

== ENCOUNTER 2020-08-31 06:40 | Outpatient (RCR) | payer MEDICARE, OTHER, SELFPAY ==
[2020-08-31] MEDS: COVID-19 VACC, MRNA(PFIZER)/PF 30 MCG/0.3 ML SYRINGE IM (11:38)
[2020-09-21] MEDS: COVID-19 VACC, MRNA(PFIZER)/PF 30 MCG/0.3 ML SYRINGE IM (11:38)
== END 2020-08-31 23:59 ==
LOC: IMMUN 06:40
PROVIDERS: PCP Family Medicine; Referring Provider Family Medicine; Visit Provider Family Medicine
DX: Z23 Encounter for immunization (principal)
CPT/HCPCS: 0001A; 0002A

== ENCOUNTER 2021-08-09 16:49 | Outpatient (CLI) | payer MEDICARE, OTHER, SELFPAY ==
[2021-08-09 18:18] LABS: Anion Gap 4 (5-15); BUN 15 mg/dL (7-18); BUN/Creat Ratio 13.4 RATIO (10-20); Calcium,Total 8.9 mg/dL (8.5-10.1); Chloride 108 mmol/L (98-107); Cholesterol 167 mg/dL (200); Creatinine, Serum 1.12 mg/dL (0.70-1.30); EST Glomerular Filtration Rate 69 mL/min (>60); Est Glom Filt Rate - Afr Amer 84 mL/min (>60); Glucose 71 mg/dL (74-106); High Density Lipoprotein 48 mg/dL; PSA,Total - Annual Screen 0.54 ng/mL (0.00-4.00); Potassium 3.9 mmol/L (3.5-5.1); Sodium Level 140 mmol/L (136-145); Thyroid Stim Hormone (TSH) 3.14 uIU/mL (0.358-3.74); Triglycerides 68 mg/dL; Very Low Density Lipoprotein 14 mg/dL (5-40)
== END 2021-08-09 23:59 | disposition home or self-care (01) ==
LOC: MFPLAB 16:57
PROVIDERS: PCP Family Medicine; Referring Provider Family Medicine; Visit Provider Family Medicine
DX: Z00.00 Encounter for general adult medical examination without abnormal findings (principal); N40.0 Benign prostatic hyperplasia without lower urinary tract symptoms; Z12.5 Encounter for screening for malignant neoplasm of prostate
CPT/HCPCS: 36415; 80048; 80061; 82306; 84153; 84443; G0103

== ENCOUNTER → 2022-06-18 | Outpatient (CLI) | payer MEDICARE, OTHER, SELFPAY ==
--- NOTE | 2022-06-18 09:12 | EKG12_ITS ---
Test Reason : PRE OP Blood Pressure : / mmHG Vent. Rate : 054 BPM Atrial Rate : 054 BPM P-R Int : 192 ms QRS Dur : 116 ms QT Int : 402 ms P-R-T Axes : 056 -10 019 degrees QTc Int : 381 ms Sinus bradycardia Otherwise normal ECG Confirmed by MAYELIN NGUENT, STEPHANY ([id number]), general expeditor CROW HEDRICK ([id number]) on 06/19/2022 10:05:25 AM Referred By: Richie Cowan Confirmed By:STEPHANY DICK MD
[2022-06-18 09:26] LABS: Absolute Lymphocyte Count 2.53 X10^3/uL (0.83-4.51); Absolute Neutrophil Count 2.8 X10^3/uL (2.0-7.7); Basophil# 0.11 X10^3/uL; Basophil% 1.7 % (0-1); Eosinophil# 0.49 X10^3/uL; Eosinophils% 7.5 % (0-5); Hematocrit 43.8 % (40-54); Hemoglobin 15.1 g/dL (13.0-16.5); Lymphocyte # 2.53 X10^3/ul (0.83-4.51); Lymphocyte % 38.9 % (19-41); Mean Corp Hgb Conc 34.5 g/dL (32-36); Mean Corpuscular Hgb 33.6 pg (27.0-32.0); Mean Corpuscular Volume 97.6 fL (80-94); Mean Platelet Vol. 9.2 fl (6.2-12.0); Monocyte# 0.55 X10^3/uL; Monocyte% 8.5 % (0-10); NRBC Flagged by Analyzer 0 % (0-5); Neutrophil % 43.1 % (47-70); Platelet Count 218 K/mm3 (150-450); RBC Distribution Width CV 13.1 % (11.6-14.6); RBC Distribution Width SD 47.4 fl (35.1-43.9); Red Blood Count 4.49 M/mm3 (4.6-6.2); White Blood Count 6.5 K/mm3 (4.4-11.0)
[2022-06-18 10:01] LABS: Albumin, Serum 3.7 g/dL (3.2-5.0); Anion Gap 2 (5-15); BUN 19 mg/dL (7-18); BUN/Creat Ratio 17.3 RATIO (10-20); Calcium,Total 9.3 mg/dL (8.5-10.1); Chloride 109 mmol/L (98-107); EST Glomerular Filtration Rate 71 mL/min (>60); Est Glom Filt Rate - Afr Amer 85 mL/min (>60); Glucose 102 mg/dL (74-106); Potassium 4.2 mmol/L (3.5-5.1); Sodium Level 142 mmol/L (136-145)
== END | disposition home or self-care (01) ==
LOC: PSN 09:03
PROVIDERS: PCP Family Medicine; Referring Provider Specialist; Visit Provider Specialist
DX: Z01.810 Encounter for preprocedural cardiovascular examination (principal); R00.1 Bradycardia, unspecified
CPT/HCPCS: 36415; 80048; 82040; 85025; 93005

== ENCOUNTER 2022-09-17 11:30 | Outpatient (RCR) | payer MEDICARE, OTHER, SELFPAY ==
--- NOTE | 2022-08-20 12:45 | HP.PTEVAL_ITS ---
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 Date of Evaluation: 08/20/22 Physical Therapist: Rex Cole DPT - Visit Plan Frequency: 2x /Week Duration: 4 Weeks Plan: Start with R knee and ankle strengthening. Add in calf stretching but also CKC R calf strengthening as able. (might need to work in eccentrics due to weak ness). Progress to stability/proprioception exercises as tolerated. - Subjective Pt. 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 Pt. reports having lateral knee and ankle pain along with N/T for a few years and ending up having some nerve compression. Pt. had surgery to decompress the nerve on 07/05/22. Peroneal nerve was decompressed and had a bone graft of the proximal fibular shaft. He was then in a splint for 2 weeks and non Wbing for 6 weeks. He is here today to start PT for stability and strengthening of his R knee and ankle. Pt. reports walking okay, but does have a bit of a limp. He reports it just feels weak.' He reports overall minimal pain. He reports having more of a stiffness issues. His numbness has improved, but still has marked numbness on top of his foot. He has started to get back into walking. He is sleeping okay. He does have a goal of hiking the [employer] over a 30day period. Pt. is hopeful to regain his strength and get back to all recreational activities without limitations. - Pain R knee Pain Intensity (Out of 10): 1 Pain Intensity Range: 0, 2 Comment: lateral aspect R ankle Pain Intensity (Out of 10): 1 Pain Intensity Range: 0, 2 Comment: lateral aspect - Objective POSTURE: Pt. has decent posture in stance. Pt. reports no pain with standing without AD. PALPATION: Pt. has a good healing incision at lateral knee ~4 inches. No signs of infection. Minimal redness. NEURO: Pt. had decreased sensation at lateral ankle and dorsum of foot. Normal on R side. ROM: R knee: 0-0-120deg. R ankle: DF 10deg, PF 35deg, INV 8deg, EVR 6deg. PROM: ankle DF: 15deg, PF 40deg, INV 18deg, EVR 15deg,. MMT: RLE: ankle: DF 12#, PF 33#, EVR 6#, INV 15#. knee: ext 27#, flexion 28#. LLE: ankle DF 38deg, PF 55#, INV 20#, EVR 20#; knee: ext 38#, flexion 41#. Pt. unable to rise on toes on R side. x10 reps on L side. GAIT: Pt. ambulates without Ad, but had marked limp. He reports no antalgic pattern, but reports my ankle feels week. pt. appears to have decreased R forefoot rocker moment, potentially from decreased PF strength. - Balance/Special Test Scores Lower Extremity Functional Score: 36 - Goals Goal 1:: LTG: Pt. to be I with HEP for R knee and ankle strengthening/stability. Goal Time Frame: 4-6 Weeks Goal 2:: STG: pt. to be able to ambulate with normal gait pattern without increase in symptoms. Goal Time Frame: 2-4 Weeks Goal 3:: LTG: Pt. to have full strength in R ankle and R knee symmetrical to L side. Goal Time Frame: 4-6 Weeks Goal 4:: LTG: Pt. to negotiate steps with 1 HR with reciprocal pattern without limitations. Goal Time Frame: 4-6 Weeks Goal 5:: LTG: Pt. to have good proprioception in R ankle visible by SLS for 30sec without LOB. Goal Time Frame: 4-6 Weeks - Rehabilitation Potential Physical Therapy Diagnosis: Pt. 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 Pt. has marked RLE weakness and tightness. He would benefit from PT to increase R ankle and knee stability progressing back to all functional and reactional activities without limitations. Rehabilitation Potential: Excellent - Anticipated Interventions Patient/Client Instruction: Educate patient on: Condition, Plan of Care, Risk Factors, Benefits of Fitness Program For the Purpose of:: To improve decision making, To facilitate caregiver knowledge, To improve self management, To prevent re-injury, To improve ability to perform tasks related to life management, To improve tolerance to ADL's Therapeutic Exercise to Include: Strength training, Power training, Endurance training, Balance training, Coordination, Agility training, Body mechanics, Flexibilty training, Gait and locomotor training, Passive ROM, Active ROM For the Purpose of:: To decrease pain, To increase ROM, To improve nutrient delivery to tissue, To increase oxygenation perfusion, To improve muscle performance and motor function, To improve ability to perform ADL's, To increase tolerance to activity/condition/position, To improve performance and independe nce with ADL's, To improve ability of physical actions for home/community/work/leisure, To improve gait and locomotor functions, To improve health of tissue, To decrease soft tissue restriction, To increase flexibility/ROM Thank you for the opportunity to evaluate your patient. For Medicare and Medicare HMO plans, please review the plan of care and approve it. It will need to be FAXED BACK to us at [phone] for Medicare purposes. For Medicare only, by signing this I certify the plan of care. Please let me know if there are questions or concerns regarding this plan of care. Physician Signature: Date:
== END 2022-09-17 19:00 | disposition home or self-care (01) ==
LOC: PT 11:30
PROVIDERS: PCP Family Medicine; Referring Provider Physician Assistant Surgical; Visit Provider Physician Assistant Surgical
DX: M86.161 Other acute osteomyelitis, right tibia and fibula (principal); G57.31 Lesion of lateral popliteal nerve, right lower limb
CPT/HCPCS: 97016; 97110; 97161

== ENCOUNTER → 2023-10-17 | Outpatient (CLI) | payer MEDICARE, SELFPAY ==
[2023-10-17 18:00] LABS: Absolute Lymphocyte Count 2.65 X10^3/uL (0.83-4.51); Absolute Neutrophil Count 4.1 X10^3/uL (2.0-7.7); Basophil# 0.11 X10^3/uL; Basophil% 1.4 % (0-1); Eosinophil# 0.26 X10^3/uL; Eosinophils% 3.3 % (0-5); Hematocrit 44.1 % (40-54); Hemoglobin 14.8 g/dL (13.0-16.5); Lymphocyte # 2.65 X10^3/ul (0.83-4.51); Lymphocyte % 33.5 % (19-41); Mean Corp Hgb Conc 33.6 g/dL (32-36); Mean Corpuscular Volume 95.5 fL (80-94); Monocyte# 0.75 X10^3/uL; Monocyte% 9.5 % (0-10); NRBC Flagged by Analyzer 0 % (0-5); Neutrophil # 4.11 X10^3/uL (2.7-7.7); Neutrophil % 51.9 % (47-70); Platelet Count 228 K/mm3 (150-450); RBC Distribution Width CV 13.2 % (11.6-14.6); RBC Distribution Width SD 46.7 fl (35.1-43.9); Red Blood Count 4.62 M/mm3 (4.6-6.2); White Blood Count 7.9 K/mm3 (4.4-11.0)
[2023-10-17 18:41] LABS: ALB/GLOB Ratio 1.1 RATIO (0.9-2.4); AST(SGOT) 18 U/L (15-37); Alanine Aminotransfer ALT/SGPT 24 U/L (16-61); Albumin, Serum 4.1 g/dL (3.2-5.0); Alkaline Phosphatase 92 U/L (45-117); Anion Gap 5 (5-15); BUN 19 mg/dL (7-18); Calcium,Total 9.3 mg/dL (8.5-10.1); Chloride 107 mmol/L (98-107); Creatinine, Serum 1.27 mg/dL (0.70-1.30); EST Glomerular Filtration Rate 60 mL/min (>60); Est Glom Filt Rate - Afr Amer 72 mL/min (>60); Globulin 3.7 g/dL (2.2-4.2); Glucose 90 mg/dL (74-106); Potassium 4.2 mmol/L (3.5-5.1); Protein, Total 7.8 g/dL (6.4-8.2); Sodium Level 137 mmol/L (136-145); Thyroid Stim Hormone (TSH) 4.51 uIU/mL (0.358-3.74)
== END | disposition home or self-care (01) ==
LOC: MFPLAB 14:21
PROVIDERS: PCP Family Medicine; Visit Provider Family Medicine
DX: R53.83 Other fatigue (principal)
CPT/HCPCS: 36415; 80053; 84403; 84443; 85025

== ENCOUNTER → 2023-11-05 | Outpatient (CLI) | payer MEDICARE, OTHER, SELFPAY ==
--- NOTE | 2023-11-05 19:16 | STRESSREP ---
Stress Test Report Exercise myocardial perfusion stress test. 68-year-old man with a history of chest pain Stress protocol: Resting EKG demonstrates sinus bradycardia with a rate of 51 bpm resting blood pressure is 162/92 mmHg. The patient exercised according to the regular Fei protocol for a total duration of 7 minutes attaining a maximum heart rate of 148 bpm which was 98% of maximum predicted heart rate; the maximum workload was 10.1 metabolic equivalents. At rest there were no ST or T wave changes noted to suggest ischemia and at peak exercise upsloping ST changes only were noted which did not meet the criteria for ischemia. No clinical angina was noted the test was terminated due to the target heart rate being achieved/fatigue. The peak blood pressure was 210/80 mmHg. Rate-pressure product was 25,400. Hypertensive response to exercise was noted.. Myocardial perfusion protocol. 15 mCi of technetium 99m sestamibi was injected at rest. The patient exercised according to regular Fei protocol for total duration of 7 minutes and at peak exercise 45 mCi of technetium 99m sestamibi was injected stress images were obtained stress and rest images were reconstructed in comparing the short axis vertical long and horizontal long axis. Gated images were also obtained. Perfusion SPECT analysis: Review of the stress images demonstrate normal uptake of tracer noted in all areas of the myocardium. The resting images similarly demonstrate normal uptake of tracer noted in all areas of the myocardium. No areas of reversibility are noted to suggest ischemia no previous infarct was noted. Gated SPECT analysis: The gated ejection fraction is 55%. Conclusion: Normal exercise myocardial perfusion stress test at a high workload Preserved ejection fraction.
== END | disposition home or self-care (01) ==
PROVIDERS: PCP Family Medicine; Referring Provider Family Medicine; Visit Provider Family Medicine
DX: R06.02 Shortness of breath (principal)
CPT/HCPCS: 78452; 93017; A9500; A4216

== ENCOUNTER → 2024-12-23 | Outpatient (CLI) | payer MEDICARE, OTHER, SELFPAY ==
--- NOTE | 2024-12-23 18:33 | CT_ITS ---
PROCEDURE: EXTREMITY UPPER WITHOUT CONTRA 12/23/2024 REASON FOR EXAM: PRIMARY OSTEOARTHRITIS, RT SHOULDER TECHNIQUE: EXTREMITY UPPER WITHOUT CONTRA Coronal and Sagittal reconstruction series were provided. One or more dose reduction techniques were used (e.g., Automated exposure control, adjustment of the mA and/or kV according to patient size, use of iterative reconstruction technique. RADIATION DOSE SUMMARY: CTDlvol: 26.7 mGy DLP: 822 mGycm COMPARISON: None FINDINGS: No displaced fracture or traumatic malalignment. Severe joint space narrowing with [id number] articulation at the glenohumeral joint, with subchondral sclerosis and cystic change in addition to osteophyte formation. [id number] joint space narrowing at the acromioclavicular joint. Degenerative changes of the spine are partially imaged. There is calcifications at the acromiohumeral interval. Probable fluid within the biceps tendon sheath. The soft tissues are unremarkable. The visualized portions of the lung are clear. CT/Extremity Upper without Contra IMPRESSION: 1. Advanced osteoarthritis of the glenohumeral joint. 2. Calcifications at the acromiohumeral interval, likely sequela of rotator cu ff calcific tendinopathy. 3. Probable fluid within the biceps tendon sheath, as may be seen with biceps tendinopathy/tenosynovitis. 4. [id number]-kzhrdopg osteoarthritis of the acromioclavicular joint. Reading Location: [id number]
--- OUTSIDE RECORDS SUMMARY | 2024-12-23 22:10 | XMS RPT_ITS | CCD ---
Author Organization [facility] Inform ion Partnership [facility] Care Team Providers Care Radar Engineer Name Role Phone PRAVIN GARCIA Admitting Unavailable PHYSICIAN, NOT RECORDED Primary Care Unavaila STEF Lord Attending Unavailable PHIL RODARTE Consulting Unavailable ESDRAS HEARD JR. Consulting Unavailab DEBORAH Cornejo Consulting Unavailable Jaxson Galvan Primary Care Unavailable Richie Cowan Attending Unavailable Richie Cowan Attending Unavailable Richie Cowan Referring Unavailable Jaxson Galvan Primary Care Unavailable Allergies Allergy Classification Reported Allergen(s) Allergy Type Date of Onset Reaction(s) Facility (3 sources) Penicillins Allergy to substance 0 Hives [facility] (3 sources) Gadolinium-MRI Contrast Medium Propensity to adverse reactions 0 Nausea [facility] (1 source) Penicillins Drug allergy (disorder) 0 [facility] Repository (1 source) Gadolinium-MRI Contrast Medium Drug allergy (disorder) 0 [facility] Repository Medications Current Medications Medication Drug Class(es) Dates Sig (Normalized) Sig (Original) aspirin 81 mg delayed release oral tablet (3 sources) Platelet Aggregation Inhibitor, Nonsteroidal Anti-inflammatory Drug Start: 05-13-2018 take 81 mg by mouth once daily Aspirin Active 81 MG PO DAILY May 13, 2018 1:00am tamsulosin hydrochloride 0.4 mg oral capsule (3 sources) alpha-Adrenergic Pranav Start: 06-06-2016 take 0.4 mg by mouth once daily Tamsulosin Active 0.4 MG PO DAILY June 06, 2016 1:00am Problems Problem Classification Problem Date Documented Da te Episodic/Chronic Osteoarthritis (1 source) Primary osteoarthritis, right shoulder; Translations: [Primary osteoarthritis, right shoulder] Onset: 12-22-2024 Chronic Other bone disease and musculoskeletal deformities (6 sources) Segmental and somatic dysfunction; Translations: [Segmental and somatic dysfunction of cervical region] 07-15-2017 Episodic Other upper respiratory infections (3 sources) Streptococcal sore throat; Translations: [Streptococcal pharyngitis] 01-21-2019 Episodic Sprains and strains (3 sources) Acute cervical sprain; Translations: [Sprain of joints and ligaments of unspecified parts of neck, initial encounter] 07-21-2017 Episodic Results Test Name Value Interpretation Reference Range Facility Absolute lymphocyte countOrd ered By: Jaxson Galvan on 10-17-2023 Lymphocytes Auto (Unsp spec) [#/Vol] 2.65 10*3/uL 0.83-4.51 [facility] Automated lymphocyte count a s percentage of total leukocytesOrdered By: Jaxson Galvan on 10-17-2023 Lymphocytes/100 WBC Auto (Unsp spec) 33.5 % 19-41 [facility] Basophil percentageOrdered B y: Jaxson Galvan on 10-17-2023 Basophils/100 WBC (Bld) 1.4 % 0-1 [facility] Bilirubin [Mass/Vol] 1.90 mg/dL 0.20-1.00 [facility] Comment on above: For patients on eltr ombopag therapy, use of Dimension [place] TBIL is not recommended. Chloride [Moles/Vol] 107 mmol/L 98-107 [facility] Eosinophils/100 WBC (Bld) 3.3 % 0-5 [facility] Glucose [Mass/Vol] 90 mg/dL 74-106 [facility] Hemoglobin (Bld) [Mass/Vol] 14.8 g/dL 13.0-16.5 [facility] Monocytes/100 WBC (Bld) 9.5 % 0-10 [facility] Neutrophils (Bld) [#/Vol] 4.1 10*3/uL 2.0-7.7 [facility] Neutrophils/100 WBC (Bld) 51.9 % 47-70 [facility] Potassium [Moles/Vol] 4.2 mmol/L 3.5-5.1 [facility] Protein [Mass/Vol] 7.8 g/dL 6.4-8.2 [facility] Sodium [Moles/Vol] 137 mmol/L 136-145 [facility] Testosterone [Mass/Vol] 387.37 ng/dL [facility] Comment on above: CENTRAL 90% REFERENC E RANGES MALE AGE <50 197.44 - 669.58 ng/dL MALE AGE > or = 50 187.72 - 684.19 ng/dL FEMALE AGE <50 8.38 - 35.01 ng/dL FEMALE AGE > or = 50 <7.00 - 35.92 ng/dL Effective as of 01/23/21 WBC (Bld) [#/Vol] 7.9 10*3/uL 4.4-11.0 [facility] Determination of erythrocyte mean corpuscular volume (MCV)Ordered By: Jaxson Galvan on 10-17-2023 MCV (RBC) [Entitic vol] 95.5 fL 80-94 [facility] Erythrocyte distribution wid th ratioOrdered By: Jaxson Galvan on 10-17-2023 Erythrocyte distribution width (RBC) [Ratio] 13.2 % 11.6-14.6 [facility] Erythrocyte distribution wid th standard deviationOrdered By: Jaxson Galvan on 10-17-2023 Erythrocyte distribution width (RBC) [Entitic vol] 46.7 fL 35.1-43.9 [facility] Hematocrit Auto (Bld) [Volum e fraction]Ordered By: Jaxson Galvan on 10-17-2023 Hematocrit (Bld) [Volume fraction] 44.1 % 40-54 [facility] Immature granulocytes/100 WB C Auto (Bld)Ordered By: Jaxson Galvan on 10-17-2023 Immature granulocytes/100 WBC (Bld) 0.400 % 0.0-0.9 [facility] Comment on above: IG% - Immature Granu locytes (promyelocytes, myelocytes and metamyelocytes) > 1% indicates that a LEFT SHIFT is Present. Laboratory - Chemistry and C hemistry - challengeOrdered By: Jaxson Galvan on 10-17-2023 Albumin/Globulin [Mass ratio] 1.1 {ratio} 0.9-2.4 [facility] ALP [Catalytic activity/Vol] 92 U/L 45-117 [facility] ALT [Catalytic activity/Vol] 24 U/L 16-61 [facility] CO2 [Moles/Vol] 25.0 mmol/L 21.0-32.0 [facility] Globulin (S) [Mass/Vol] 3.7 g/dL 2.2-4.2 [facility] Urea nitrogen/Creatinine [Mass ratio] 15.0 mg/mg 10-20 [facility] Laboratory - Hematology and Cell countsOrdered By: Jaxson Galvan on 10-17-2023 MCH (RBC) [Entitic mass] 32.0 pg 27.0-32.0 [facility] MCHC (RBC) [Mass/Vol] 33.6 g/dL 32-36 [facility] Nucleated RBC/100 WBC (Bld) [Ratio] 0 % 0-5 [facility] Platelet mean volume (Bld) [Entitic vol] 10.0 fL 6.2-12.0 [facility] Platelets (Bld) [#/Vol] 228 10*3/uL 150-450 [facility] No Panel InformationOrdered By: Jaxson Galvan on 10-17-2023 Estimated GFR (MDRD) Amer 72 mL/min >60 [facility] Comment on above: GFR Calc Estimated GFR (MDRD) Non-Af Amer 60 mL/min >60 [facility] Comment on above: Non- GFR Calc RBC Auto (Bld) [#/Vol]Ordere d By: Jaxson Galvan on 10-17-2023 RBC (Bld) [#/Vol] 4.62 10*6/uL 4.6-6.2 [facility] Serum or plasma calcium elodia urement (mass/volume)Ordered By: Jaxson Galvan on 10-17-2023 Calcium [Mass/Vol] 9.3 mg/dL 8.5-10.1 [facility] Serum or plasma creatinine m easurement (mass/volume)Ordered By: Jaxson Galvan on 10-17-2023 Creatinine [Mass/Vol] 1.27 mg/dL 0.70-1.30 [facility] Comment on above: The validity of the calculated GFR & GFRAA in patients over 70 years has not been determined. Clinical correlation is essential. Serum or plasma thyroid stim ulating hormone (TSH) measurement (units/volume)Ordered By: Jaxson Galvan on 10-17-2023 TSH Qn 4.51 uIU/mL 0.358-3.74 [facility] Serum or plasma urea nitroge n measurement (mass/volume)Ordered By: Jaxson Galvan on 10-17-2023 Urea nitrogen [Mass/Vol] 19 mg/dL 7-18 [facility] Thin prep Papanicolaou smear with manual screeningOrdered By: Jaxson Galvan on 10-17-2023 Thin prep Papanicolaou smear with manual screening 4.1 g/dL 3.2-5.0 [facility] Thin prep Papanicolaou smear with manual screening 18 U/L 15-37 [facility] Thin prep Papanicolaou smear with manual screening 5 5-15 [facility] Absolute lymphocyte counton 06-18-2022 Lymphocytes Auto (Unsp spec) [#/Vol] 2.53 10*3/uL 0.83-4.51 [facility] Work Phone: Basophil percentageon 2021 Basophils/100 WBC (Bld) 1.7 % 0-1 [facility] Work Phone: Chloride [Moles/Vol] 109 mmol/L 98-107 [facility] Work Phone: Eosinophils/100 WBC (Bld) 7.5 % 0-5 [facility] Work Phone: Glucose [Mass/Vol] 102 mg/dL 74-106 [facility] Work Phone: Comment on above: Fasting Glucose resu lt from 100 to 125 mg/dL suggests IMPAIRED HOMEOSTASIS per A.D.A. criteria. Neutrophils (Bld) [#/Vol] 2.8 10*3/uL 2.0-7.7 [facility] Work Phone: Neutrophils/100 WBC (Bld) 43.1 % 47-70 [facility] Work Phone: Potassium [Moles/Vol] 4.2 mmol/L 3.5-5.1 [facility] Work Phone: Sodium [Moles/Vol] 142 mmol/L 136-145 [facility] Work Phone: WBC (Bld) [#/Vol] 6.5 10*3/uL 4.4-11.0 [facility] Work Phone: Blood erythrocytes count (nu mber/volume)on 06-18-2022 RBC (Bld) [#/Vol] 4.49 10*6/uL 4.6-6.2 [facility] Work Phone: Blood hemoglobin measurement (mass/volume)on 06-18-2022 Hemoglobin (Bld) [Mass/Vol] 15.1 g/dL 13.0-16.5 [facility] Work Phone: Blood lymphocytes/100 leukoc yteson 06-18-2022 Lymphocytes/100 WBC (Bld) 38.9 % 19-41 [facility] Work Phone: Blood monocytes/100 leukocyt eson 06-18-2022 Monocytes/100 WBC (Bld) 8.5 % 0-10 [facility] Work Phone: Blood platelet mean volumeon 06-18-2022 Platelet mean volume (Bld) [Entitic vol] 9.2 fL 6.2-12.0 [facility] Work Phone: Determination of erythrocyte mean corpuscular volume (MCV)on 06-18-2022 MCV (RBC) [Entitic vol] 97.6 fL 80-94 [facility] Work Phone: Hematocrit Auto (Bld) [Volum e fraction]on 06-18-2022 Hematocrit (Bld) [Volume fraction] 43.8 % 40-54 [facility] Work Phone: Laboratory - Chemistry and C hemistry - challengeon 06-18-2022 CO2 [Moles/Vol] 31.0 mmol/L 21.0-32.0 [facility] Work Phone: Urea nitrogen/Creatinine [Mass ratio] 17.3 mg/mg 04-18 [facility] Work Phone: Laboratory - Hematology and Cell countson 06-18-2022 Erythrocyte distribution width (RBC) [Entitic vol] 47.4 fL 35.1-43.9 [facility] Work Phone: Erythrocyte distribution width (RBC) [Ratio] 13.1 % 11.6-14.6 [facility] Work Phone: Immature granulocytes/100 WBC (Bld) 0.300 % 0.0-0.9 [facility] Work Phone: Comment on above: IG% - Immature Granu locytes (promyelocytes, myelocytes and metamyelocytes) > 1% indicates that a LEFT SHIFT is Present. MCH (RBC) [Entitic mass] 33.6 pg 27.0-32.0 [facility] Work Phone: Nucleated RBC/100 WBC (Bld) [Ratio] 0 % 0-5 [facility] Work Phone: MCHC Auto (RBC) [Mass/Vol]on 06-18-2022 MCHC (RBC) [Mass/Vol] 34.5 g/dL 32-36 [facility] Work Phone: No Panel Informationon 06-18 Estimated GFR (MDRD) Amer 85 mL/min >60 [facility] Work Phone: Comment on above: GFR Calc Estimated GFR (MDRD) Non-Af Amer 71 mL/min >60 [facility] Work Phone: Comment on above: Non- GFR Calc Platelets bldon 06-18-2022 Platelets (Bld) [#/Vol] 218 10*3/uL 150-450 [facility] Work Phone: Serum or plasma albumin elodia urement (mass/volume)on 06-18-2022 Albumin [Mass/Vol] 3.7 g/dL 3.2-5.0 [facility] Work Phone: Serum or plasma calcium elodia urement (mass/volume)on 06-18-2022 Calcium [Mass/Vol] 9.3 mg/dL 8.5-10.1 [facility] Work Phone: Serum or plasma creatinine m easurement (mass/volume)on 06-18-2022 Creatinine [Mass/Vol] 1.10 mg/dL 0.70-1.30 [facility] Work Phone: Comment on above: The validity of the calculated GFR & GFRAA in patients over 70 years has not been determined. Clinical correlation is essential. Serum or plasma urea nitroge n measurement (mass/volume)on 06-18-2022 Urea nitrogen [Mass/Vol] 19 mg/dL 7-18 [facility] Work Phone: Thin prep Papanicolaou smear with manual screeningon 06-18-2022 Thin prep Papanicolaou smear with manual screening 2 5-15 [facility] Work Phone: MRI MRCPon 08-27-2018 MRI MRCP ADDENDUM Addendum: Indication only INDICATION: Outside ultrasound showed gallstones and dilated common duct of 9 mm, patient is having gallbladder attacks and is vomiting bile, RIGHT upper quadrant pain, possible biliary obstruction COMPARISON: Outside ultrasound 06/20/2018 Interpreted By: Kishor Gutierrez MD Preliminary Report By: Kishor Gutierrez MD Electronically Signed By: Kishor Gutierrez MD Dictated Date: 08/27/2018 2:38:10 PM Prelim Date: 08/27/2018 2:42:42 PM Sign Date: 08/27/2018 2:42:42 PM ORIGINAL MRI NONCONTRAST MRCP WITH CONSOLE POST-PROCESSING AND 3-d RECONSTRUCTIONS CLINICAL STATEMENT: possible biliary obstruction, , abnormal ultrasound, gallstones, possible common duct stone COMPARISON: Outside ultrasound 06/20/2018 FINDINGS: This is a non-contrast study and is not intended or optimized for evaluating solid organ pathology, including mass lesions. There is no intra or extrahepatic bile duct dilatation. Common duct shows normal distal tapering without any calculus. The pancreatic duct is normal in morphology and caliber with no suggestion of pancreas divisum. There are no indicators of acute pancreatitis on this study. The gallbladder is present and contains multiple calculi. There is also a calculus in the gallbladder neck that is mildly compressing the common duct. There is however no intrahepatic bile duct dilatation resulting from this. There is moderate edema surrounding the gallbladder most pronounced posteriorly and mild gallbladder wall thickening. There are. Multiple bilateral renal cysts. IMPRESSION: Normal evaluation of the bile ducts and pancreatic duct. No common duct stone is seen. The ultrasound finding is most likely due to a stone in the gallbladder neck that is just adjacent to the common duct. There are other gallstones with mild gallbladder wall thickening and moderate pericholecystic edema. These findings may represent acute cholecystitis in the appropriate clinical setting. The study was reviewed with Dr. Heard and about 4:45 PM. . Interpreted By: Kishor Gutierrez MD Preliminary Report By: Kishor Gutierrez MD Electronically Signed By: Kishor Gutierrez MD Dictated Date: 06/21/2018 4:54:05 PM Prelim Date: 06/21/2018 4:54:05 PM Sign Date: 06/21/2018 4:57:49 PM [facility] ([place]) Final Surgical Pathology Rep [facility] 06-24-2018 Final Surgical Pathology Report . Pathology Reports Accession: Collected Date/Time: Received Date/Time: Pathologist: [id number] 06/22/2018 09:17 EST 06/22/2018 10:25 EST DO ROMEO MARTINEZ Final Surgical Pathology Report DIAGNOSIS: GALLBLADDER -- CHOLELITHIASIS, ACUTE AND CHRONIC CHOLECYSTITIS. CLINICAL INFORMATION: Procedure: LAPAROSCOPIC CHOLECYSTECTOMY, POSSIBLE OPEN CHOLECYSTECTOMY Preoperative diagnosis: ACUTE CHOLECYSTITIS Postoperative diagnosis: SAME SPECIMEN: A GALLBLADDER AND CONTENTS GROSS DESCRIPTION: Received in formalin labeled gallbladder and contents is a 10 x 5.3 x 3.5 cm gallbladder. The serosa is red-pink and smooth. The specimen has been previously partially opened to show a moderate amount of blood stained bile and multiple black and brown choleliths ranging from minute to 2 cm in greatest dimension. The mucosa is red-clement and irregular. The fundus shows a 2.4 x 1. 8 x 1.4 cm pouch. The wall averages 0.3 cm in thickness. RS -1 Dictated by Della BASHIR ([facility]) MICROSCOPIC DESCRIPTION: Slides reviewed. Electronically Signed by Pathology Report verified by [facility] Electronically signed by ROMEO MARTINEZ DO Sign out Date: 06/24/2018 12:59 Performing Lab: [address] ([place]) Comment on above: Performed By: #### C BC, ADIFF, ANEU, GFR, CMP #### [place] [address] .Auto Diffon 06-23-2018 Ammonia mass conc (P) 1.10 10 3/mcL Normal 0.09-1.40 [facility] ([place]) Comment on above: Performed By: #### C BC, ADIFF, ANEU, GFR, CMP #### [address] [address] Basophils #/vol (Bld) 0.00 10 3/mcL Normal 0.00-0.27 [facility] ([place]) Comment on above: Performed By: #### C BC, ADIFF, ANEU, GFR, CMP #### [address] [address] Basophils/100 WBC (Bld) 0.3 % Normal 0.0-2.5 [facility] ([place]) Comment on above: Performed By: #### C BC, ADIFF, ANEU, GFR, CMP #### [address] [address] Eosinophils #/vol (Bld) 0.00 10 3/mcL Normal 0.00-0.65 [facility] ([place]) Comment on above: Performed By: #### C BC, ADIFF, ANEU, GFR, CMP #### [address] [address] Eosinophils/100 WBC (Bld) 0.1 % Normal 0.0-6.0 [facility] ([place]) Comment on above: Performed By: #### C BC, ADIFF, ANEU, GFR, CMP #### [address] [address] Lymphocytes #/vol (Bld) 2.20 10 3/mcL Normal 0.90-4.32 [facility] ([place]) Comment on above: Performed By: #### C BC, ADIFF, ANEU, GFR, CMP #### [address] [address] Lymphocytes/100 WBC (Bld) 17.3 % Low 20.0-40.0 [facility] ([place]) Comment on above: Performed By: #### C BC, ADIFF, ANEU, GFR, CMP #### [address] [address] Monocytes/100 WBC (Bld) 8.2 % Normal 2.0-13.0 [facility] ([place]) Comment on above: Performed By: #### C BC, ADSANDY, ANEU, GFR, CMP #### [address] [address] Neutrophils/100 WBC (Bld) 74.1 % Normal 50.0-75.0 [facility] ([place]) Comment on above: Performed By: #### C BC, ADIFF, ANEU, GFR, CMP #### [address] [address] .GFRon 06-23-2018 GFR Non- >60 Normal [facility] ([place]) Comment on above: Result Comment: GFR Population mean for , Non- Americans Ages 20-29 = 116 mL/min/1.73 sq.m. Ages 30-39 = 107 mL/min/1.73 sq.m. Ages 40-49 = 99 mL/min/1.73 sq.m. Ages 50-59 = 93 mL/min/1.73 sq.m. Ages 60-69 = 85 mL/min/1.73 sq.m. Ages 70+ = 75 mL/min/1.73 sq.m. Chronic Kidney Disease: Less than 60 mL/min/1.73 square meters End Stage Renal Disease: Less than 15 mL/min/1.73 square meters Performed By: #### C BC, ADIFF, ANEU, GFR, CMP #### [address] [address] GFR >60 Normal [facility] ([place]) Comment on above: Result Comment: GFR Population mean for , Non- Americans Ages 20-29 = 116 mL/min/1.73 sq.m. Ages 30-39 = 107 mL/min/1.73 sq.m. Ages 40-49 = 99 mL/min/1.73 sq.m. Ages 50-59 = 93 mL/min/1.73 sq.m. Ages 60-69 = 85 mL/min/1.73 sq.m. Ages 70+ = 75 mL/min/1.73 sq.m. Chronic Kidney Disease: Less than 60 mL/min/1.73 square meters End Stage Renal Disease: Less than 15 mL/min/1.73 square meters Performed By: #### C BC, ADIFF, ANEU, GFR, CMP #### [place] [address] .NEUABSon 06-23-2018 Neutrophils #/vol (Bld) 9.60 10 3/mcL High 2.25-8.10 [facility] ([place]) Comment on above: Performed By: #### C BC, ADIFF, ANEU, GFR, CMP #### [place] [address] BMPon 06-23-2018 Calcium mass conc 7.8 mg/dL Low 8.4-10.1 [facility] ([place]) Comment on above: Performed By: #### C BC, ADIFF, ANEU, GFR, CMP #### [place] [address] Chloride molar conc 104 mmol/L Normal 98-110 [facility] ([place]) Comment on above: Performed By: #### C BC, ADIFF, ANEU, GFR, CMP #### [place] [address] CO2 molar conc 26 mmol/L Normal 22-32 [facility] ([place]) Comment on above: Performed By: #### C BC, ADIFF, ANEU, GFR, CMP #### [place] [address] Creatinine mass conc 1.07 mg/dL Normal 0.60-1.40 [facility] ([place]) Comment on above: Performed By: #### C BC, ADIFF, ANEU, GFR, CMP #### [place] [address] Electrolyte Balance 9.0 mEq/L Normal 4.0-15.0 [facility] ([place]) Comment on above: Performed By: #### C BC, ADIFF, ANEU, GFR, CMP #### [place] [address] Glucose mass conc 102 mg/dL Normal 82-115 [facility] ([place]) Comment on above: Performed By: #### C BC, ADIFF, ANEU, GFR, CMP #### [place] [address] Potassium molar conc 4.0 mmol/L Normal 3.5-5.0 [facility] ([place]) Comment on above: Performed By: #### C BC, ADIFF, ANEU, GFR, CMP #### [place] [address] Sodium molar conc 139 mmol/L Normal 136-145 [facility] ([place]) Comment on above: Performed By: #### C BC, ADIFF, ANEU, GFR, CMP #### [place] [address] Urea nitrogen mass conc 15.0 mg/dL Normal 8.0-22.0 [facility] ([place]) Comment on above: Performed By: #### C BC, ADIFF, ANEU, GFR, CMP #### [place] [address] Urea nitrogen/Creatinine mass ratio 14.0 ratio Normal 10.0-22.0 [facility] ([place]) Comment on above: Performed By: #### C BC, ADIFF, ANEU, GFR, CMP #### [place] [address] CBCon 06-23-2018 Erythrocyte distribution width Ratio (RBC) 13.4 % Normal 11.5-15.5 [facility] ([place] Comment on above: Performed By: #### C BC, ADIFF, ANEU, GFR, CMP #### [place] [address] Hematocrit Volume Fraction (Bld) 37.4 % Low 40.0-52.0 [facility] ([place] Comment on above: Performed By: #### C BC, ADIFF, ANEU, GFR, CMP #### [place] [address] Hemoglobin mass conc (Bld) 12.9 G/dL Low 13.0-17.5 [facility] ([place] Comment on above: Performed By: #### C BC, ADIFF, ANEU, GFR, CMP #### [place] [address] MCH Entitic mass (RBC) 32.6 pg Normal 27.0-33.0 [facility] ([place]) Comment on above: Performed By: #### C BC, ADIFF, ANEU, GFR, CMP #### [place] [address] MCHC mass conc (RBC) 34.5 G/dL Normal 32.0-36.0 [facility] ([place]) Comment on above: Performed By: #### C BC, ADIFF, ANEU, GFR, CMP #### [place] [address] MCV Entitic volume (RBC) 94.6 fL Normal 81.0-100.0 [facility] ([place]) Comment on above: Performed By: #### C BC, ADIFF, ANEU, GFR, CMP #### [place] [address] Platelet mean volume Entitic volume (Bld) 8.1 fL Normal 6.4-10.5 [facility] ([place]) Comment on above: Performed By: #### C BC, ADIFF, ANEU, GFR, CMP #### [place] [address] Platelets #/vol (Bld) 254 10 3/mcL Normal 150-450 [facility] ([place]) Comment on above: Performed By: #### C BC, ADIFF, ANEU, GFR, CMP #### [place] [address] RBC #/vol (Bld) 3.96 10 6/mcL Low 4.50-6.00 [facility] ([place]) Comment on above: Performed By: #### C BC, ADIFF, ANEU, GFR, CMP #### [place] [address] WBC #/vol (Bld) 12.90 10 3/mcL High 4.50-10.80 [facility] ([place]) Comment on above: Performed By: #### C BC, ADIFF, ANEU, GFR, CMP #### [place] [address] .Auto Diffon 06-22-2018 Ammonia mass conc (P) 1.90 10 3/mcL High 0.09-1.40 [facility] ([place] Comment on above: Performed By: #### C BC, ADIFF, ANEU, CMP, GFR #### [address] [address] Basophils #/vol (Bld) 0.10 10 3/mcL Normal 0.00-0.27 [facility] ([place]) Comment on above: Performed By: #### C BC, ADIFF, ANEU, CMP, GFR #### [address] [address] Basophils/100 WBC (Bld) 0.6 % Normal 0.0-2.5 [facility] ([place]) Comment on above: Performed By: #### C BC, ADIFF, ANEU, CMP, GFR #### [address] [address] Eosinophils #/vol (Bld) 0.00 10 3/mcL Normal 0.00-0.65 [facility] ([place]) Comment on above: Performed By: #### C BC, ADIFF, ANEU, CMP, GFR #### [address] [address] Eosinophils/100 WBC (Bld) 0.1 % Normal 0.0-6.0 [facility] ([place] Comment on above: Performed By: #### C BC, ADIFF, ANEU, CMP, GFR #### [address] [address] Lymphocytes #/vol (Bld) 1.90 10 3/mcL Normal 0.90-4.32 [facility] ([place]) Comment on above: Performed By: #### C BC, ADIFF, ANEU, CMP, GFR #### [address] [address] Lymphocytes/100 WBC (Bld) 12.4 % Low 20.0-40.0 [facility] ([place] Comment on above: Performed By: #### C BC, ADIFF, ANEU, CMP, GFR #### [address] [address] Monocytes/100 WBC (Bld) 12.6 % Normal 2.0-13.0 [facility] ([place]) Comment on above: Performed By: #### C BC, ADIFF, ANEU, CMP, GFR #### [address] [address] Neutrophils/100 WBC (Bld) 74.3 % Normal 50.0-75.0 [facility] ([place] Comment on above: Performed By: #### C BC, ADIFF, ANEU, CMP, GFR #### [address] [address] [address] .GFRon 06-22-2018 GFR >60 Normal [facility] ([place]) Comment on above: Result Comment: GFR Population mean for , Non- Americans Ages 20-29 = 116 mL/min/1.73 sq.m. Ages 30-39 = 107 mL/min/1.73 sq.m. Ages 40-49 = 99 mL/min/1.73 sq.m. Ages 50-59 = 93 mL/min/1.73 sq.m. Ages 60-69 = 85 mL/min/1.73 sq.m. Ages 70+ = 75 mL/min/1.73 sq.m. Chronic Kidney Disease: Less than 60 mL/min/1.73 square meters End Stage Renal Disease: Less than 15 mL/min/1.73 square meters Performed By: #### C BC, ADIFF, ANEU, GFR, CMP #### [address] [address] GFR Non- >60 Normal [facility] ([place]) Comment on above: Result Comment: GFR Population mean for , Non- Americans Ages 20-29 = 116 mL/min/1.73 sq.m. Ages 30-39 = 107 mL/min/1.73 sq.m. Ages 40-49 = 99 mL/min/1.73 sq.m. Ages 50-59 = 93 mL/min/1.73 sq.m. Ages 60-69 = 85 mL/min/1.73 sq.m. Ages 70+ = 75 mL/min/1.73 sq.m. Chronic Kidney Disease: Less than 60 mL/min/1.73 square meters End Stage Renal Disease: Less than 15 mL/min/1.73 square meters Performed By: #### C BC, ADIFF, ANEU, GFR, CMP #### [address] [address] .NEUABSon 06-22-2018 Neutrophils #/vol (Bld) 11.10 10 3/mcL High 2.25-8.1 0 [facility] ([place] Comment on above: Performed By: #### C BC, ADIFF, ANEU, CMP, GFR #### [place] [address] CBCon 06-22-2018 Erythrocyte distribution width Ratio (RBC) 13.3 % Normal 11.5-15.5 [facility] ([place] Comment on above: Performed By: #### C BC, ADIFF, ANEU, CMP, GFR #### [place] [address] Hematocrit Volume Fraction (Bld) 40.9 % Normal 40.0-52.0 [facility] ([place] Comment on above: Performed By: #### C BC, ADIFF, ANEU, CMP, GFR #### [place] [address] Hemoglobin mass conc (Bld) 14.0 G/dL Normal 13.0-17.5 [facility] ([place] Comment on above: Performed By: #### C BC, ADIFF, ANEU, CMP, GFR #### [place] [address] MCH Entitic mass (RBC) 32.6 pg Normal 27.0-33.0 [facility] ([place] Comment on above: Performed By: #### C BC, ADIFF, ANEU, CMP, GFR #### [place] [address] MCHC mass conc (RBC) 34.3 G/dL Normal 32.0-36.0 [facility] ([place] Comment on above: Performed By: #### C BC, ADIFF, ANEU, CMP, GFR #### [place] [address] MCV Entitic volume (RBC) 94.9 fL Normal 81.0-100.0 [facility] ([place] Comment on above: Performed By: #### C BC, ADIFF, ANEU, CMP, GFR #### [place] [address] Platelet mean volume Entitic volume (Bld) 7.7 fL Normal 6.4-10.5 [facility] ([place]) Comment on above: Performed By: #### C BC, ADIFF, ANEU, CMP, GFR #### [place] [address] Platelets #/vol (Bld) 251 10 3/mcL Normal 150-450 [facility] ([place]) Comment on above: Performed By: #### C BC, ADIFF, ANEU, CMP, GFR #### [place] [address] RBC #/vol (Bld) 4.31 10 6/mcL Low 4.50-6.00 [facility] ([place]) Comment on above: Performed By: #### C BC, ADIFF, ANEU, CMP, GFR #### [place] [address] WBC #/vol (Bld) 14.90 10 3/mcL High 4.50-10.80 [facility] ([place]) Comment on above: Performed By: #### C BC, ADIFF, ANEU, CMP, GFR #### [place] [address] CMPon 06-22-2018 Albumin/Globulin mass ratio 0.9 {ratio} Normal 0.9-1.6 [facility] ([place] Comment on above: Performed By: #### C BC, ADIFF, ANEU, GFR, CMP #### [place] [address] ALP enzyme act/vol 79 U/L Normal 38-126 [facility] ([place] Comment on above: Performed By: #### C BC, ADIFF, ANEU, GFR, CMP #### [place] [address] Bili Total 1.9 mg/dL High 0.2-1.2 [facility] ([place] Comment on above: Performed By: #### C BC, ADIFF, ANEU, GFR, CMP #### [address] [address] Creatinine mass conc 1.09 mg/dL Normal 0.60-1.40 [facility] ([place] Comment on above: Performed By: #### C BC, ADIFF, ANEU, GFR, CMP #### [address] [address] Globulin mass conc (S) 3.3 G/dL Normal 1.5-3.8 [facility] ([place] Comment on above: Performed By: #### C BC, ADIFF, ANEU, GFR, CMP #### [address] [address] Protein mass conc 6.3 G/dL Normal 6.0-8.5 [facility] ([place] Comment on above: Performed By: #### C BC, ADIFF, ANEU, GFR, CMP #### [place] [id number] Urea nitrogen/Creatinine mass ratio 11.9 ratio Normal 10.0-22.0 [facility] ([place] Comment on above: Performed By: #### C BC, ADIFF, ANEU, GFR, CMP #### [address] [address] Albumin mass conc 3.0 G/dL Low 3.2-4.8 [facility] ([place] Comment on above: Performed By: #### C BC, ADIFF, ANEU, GFR, CMP #### [address] [address] ALT enzyme act/vol 24 U/L Normal 12-55 [facility] ([place] Comment on above: Performed By: #### C BC, ADIFF, ANEU, GFR, CMP #### [address] [address] AST enzyme act/vol 17 U/L Normal 8-34 [facility] ([place] Comment on above: Performed By: #### C BC, ADIFF, ANEU, GFR, CMP #### [address] [address] Calcium mass conc 8.3 mg/dL Low 8.4-10.1 [facility] ([place] Comment on above: Performed By: #### C BC, ADIFF, ANEU, GFR, CMP #### [place] [address] Chloride molar conc 102 mmol/L Normal 98-110 [facility] ([place] Comment on above: Performed By: #### C BC, ADIFF, ANEU, GFR, CMP #### [place] [address] CO2 molar conc 28 mmol/L Normal 22-32 [facility] [place] Comment on above: Performed By: #### C BC, ADIFF, ANEU, GFR, CMP #### [place] [address] Electrolyte Balance 9.0 mEq/L Normal 4.0-15.0 [facility] ([place] Comment on above: Performed By: #### C BC, ADIFF, ANEU, GFR, CMP #### [place] [address] Glucose mass conc 103 mg/dL Normal 82-115 [facility] ([place] Comment on above: Performed By: #### C BC, ADIFF, ANEU, GFR, CMP #### [place] [address] Potassium molar conc 4.1 mmol/L Normal 3.5-5.0 [facility] ([place] Comment on above: Performed By: #### C BC, ADIFF, ANEU, GFR, CMP #### [place] [address] Sodium molar conc 139 mmol/L Normal 136-145 [facility] ([place] Comment on above: Performed By: #### C BC, ADIFF, ANEU, GFR, CMP #### [place] [address] Urea nitrogen mass conc 13.0 mg/dL Normal 8.0-22.0 [facility] ([place] Comment on above: Performed By: #### C BC, ADIFF, ANEU, GFR, CMP #### [place] [id number] .Auto Diffon 06-21-2018 Ammonia mass conc (P) 1.20 10 3/mcL Normal 0.09-1.40 [facility] ([place]) Comment on above: Performed By: #### C BC, ADIFF, ANEU, GFR, CMP #### [address] [address] Basophils #/vol (Bld) 0.10 10 3/mcL Normal 0.00-0.27 [facility] ([place]) Comment on above: Performed By: #### C BC, ADIFF, ANEU, GFR, CMP #### [address] [address] Basophils/100 WBC (Bld) 0.5 % Normal 0.0-2.5 [facility] ([place] Comment on above: Performed By: #### C BC, ADIFF, ANEU, GFR, CMP #### [address] [address] Eosinophils #/vol (Bld) 0.00 10 3/mcL Normal 0.00-0.65 [facility] ([place]) Comment on above: Performed By: #### C BC, ADIFF, ANEU, GFR, CMP #### [address] [address] Eosinophils/100 WBC (Bld) 0.2 % Normal 0.0-6.0 [facility] ([place] Comment on above: Performed By: #### C BC, ADIFF, ANEU, GFR, CMP #### [address] [address] Lymphocytes #/vol (Bld) 1.60 10 3/mcL Normal 0.90-4.32 [facility] ([place]) Comment on above: Performed By: #### C BC, ADIFF, ANEU, GFR, CMP #### [address] [address] Lymphocytes/100 WBC (Bld) 14.5 % Low 20.0-40.0 [facility] ([place] Comment on above: Performed By: #### C BC, ADIFF, ANEU, GFR, CMP #### [address] [address] Monocytes/100 WBC (Bld) 10.1 % Normal 2.0-13.0 [facility] ([place] Comment on above: Performed By: #### C BCSELIN ANEU, GFR, CMP #### [address] [address] Neutrophils/100 WBC (Bld) 74.7 % Normal 50.0-75.0 [facility] ([place] Comment on above: Performed By: #### C BCSELIN ANEU, GFR, CMP #### [address] [address] .GFRon 06-21-2018 GFR >60 Normal [facility] ([place] Comment on above: Result Comment: GFR Population mean for , Non- Americans Ages 20-29 = 116 mL/min/1.73 sq.m. Ages 30-39 = 107 mL/min/1.73 sq.m. Ages 40-49 = 99 mL/min/1.73 sq.m. Ages 50-59 = 93 mL/min/1.73 sq.m. Ages 60-69 = 85 mL/min/1.73 sq.m. Ages 70+ = 75 mL/min/1.73 sq.m. Chronic Kidney Disease: Less than 60 mL/min/1.73 square meters End Stage Renal Disease: Less than 15 mL/min/1.73 square meters Performed By: #### C BCSELIN ANEU, GFR, CMP #### [address] [address] GFR Non- >60 Normal [facility] ([place] Comment on above: Result Comment: GFR Population mean for , Non- Americans Ages 20-29 = 116 mL/min/1.73 sq.m. Ages 30-39 = 107 mL/min/1.73 sq.m. Ages 40-49 = 99 mL/min/1.73 sq.m. Ages 50-59 = 93 mL/min/1.73 sq.m. Ages 60-69 = 85 mL/min/1.73 sq.m. Ages 70+ = 75 mL/min/1.73 sq.m. Chronic Kidney Disease: Less than 60 mL/min/1.73 square meters End Stage Renal Disease: Less than 15 mL/min/1.73 square meters Performed By: #### C BC, ADIFF, ANEU, GFR, CMP #### [place] [address] .NEUABSon 06-21-2018 Neutrophils #/vol (Bld) 8.50 10 3/mcL High 2.25-8.10 [facility] ([place] Comment on above: Performed By: #### C BC, ADIFF, ANEU, GFR, CMP #### [place] [address] CBCon 06-21-2018 Erythrocyte distribution width Ratio (RBC) 13.2 % Normal 11.5-15.5 [facility] ([place] Comment on above: Performed By: #### C BC, ADIFF, ANEU, GFR, CMP #### [place] [address] Hematocrit Volume Fraction (Bld) 39.5 % Low 40.0-52.0 [facility] ([place] Comment on above: Performed By: #### C BC, ADIFF, ANEU, GFR, CMP #### [place] [address] Hemoglobin mass conc (Bld) 13.3 G/dL Normal 13.0-17.5 [facility] ([place] Comment on above: Performed By: #### C BC, ADIFF, ANEU, GFR, CMP #### [place] [address] MCH Entitic mass (RBC) 32.1 pg Normal 27.0-33.0 [facility] ([place] Comment on above: Performed By: #### C BC, ADIFF, ANEU, GFR, CMP #### [place] [address] MCHC mass conc (RBC) 33.8 G/dL Normal 32.0-36.0 [facility] ([place] Comment on above: Performed By: #### C BC, ADIFF, ANEU, GFR, CMP #### [place] [address] MCV Entitic volume (RBC) 95.1 fL Normal 81.0-100.0 [facility] ([place] Comment on above: Performed By: #### C BC, ADIFF, ANEU, GFR, CMP #### [place] [address] Platelet mean volume Entitic volume (Bld) 7.5 fL Normal 6.4-10.5 [facility] ([place] Comment on above: Performed By: #### C BC, ADIFF, ANEU, GFR, CMP #### [place] [address] Platelets #/vol (Bld) 245 10 3/mcL Normal 150-450 [facility] ([place] Comment on above: Performed By: #### C BC, ADIFF, ANEU, GFR, CMP #### [place] [address] RBC #/vol (Bld) 4.16 10 6/mcL Low 4.50-6.00 [facility] ([place] Comment on above: Performed By: #### C BC, ADIFF, ANEU, GFR, CMP #### [place] [address] WBC #/vol (Bld) 11.40 10 3/mcL High 4.50-10.80 [facility] ([place] Comment on above: Performed By: #### C BC, ADIFF, ANEU, GFR, CMP #### [place] [address] CMPon 06-21-2018 Albumin/Globulin mass ratio 0.9 {ratio} Normal 0.9-1.6 [facility] ([place] Comment on above: Performed By: #### C BC, ADIFF, ANEU, GFR, CMP #### [place] [address] ALP enzyme act/vol 89 U/L Normal 38-126 [facility] ([place] Comment on above: Performed By: #### C BC, ADIFF, ANEU, GFR, CMP #### [place] [address] Bili Total 1.5 mg/dL High 0.2-1.2 [facility] ([place] Comment on above: Performed By: #### C BC, ADIFF, ANEU, GFR, CMP #### [address] [address] Globulin mass conc (S) 3.5 G/dL Normal 1.5-3.8 [facility] ([place] Comment on above: Performed By: #### C BC, ADIFF, ANEU, GFR, CMP #### [address] [address] Protein mass conc 6.8 G/dL Normal 6.0-8.5 [facility] ([place] Comment on above: Performed By: #### C BC, ADIFF, ANEU, GFR, CMP #### [place] [id number] Urea nitrogen mass conc 14.0 mg/dL Normal 8.0-22.0 [facility] ([place] Comment on above: Performed By: #### C BC, ADIFF, ANEU, GFR, CMP #### [place] [id number] Urea nitrogen/Creatinine mass ratio 14.0 ratio Normal 10.0-22.0 [facility] ([place] Comment on above: Performed By: #### C BC, ADIFF, ANEU, GFR, CMP #### [address] [address] Albumin mass conc 3.3 G/dL Normal 3.2-4.8 [facility] ([place] Comment on above: Performed By: #### C BC, ADIFF, ANEU, GFR, CMP #### [address] [address] ALT enzyme act/vol 25 U/L Normal 12-55 [facility] ([place] Comment on above: Performed By: #### C BC, ADIFF, ANEU, GFR, CMP #### [address] [address] AST enzyme act/vol 14 U/L Normal 8-34 [facility] ([place] Comment on above: Performed By: #### C BC, ADIFF, ANEU, GFR, CMP #### [address] [address] Calcium mass conc 8.3 mg/dL Low 8.4-10.1 [facility] ([place] Comment on above: Performed By: #### C BC, ADIFF, ANEU, GFR, CMP #### [address] [address] Chloride molar conc 103 mmol/L Normal 98-110 [facility] ([place] Comment on above: Performed By: #### C BC, ADIFF, ANEU, GFR, CMP #### [address] [address] CO2 molar conc 28 mmol/L Normal 22-32 [facility] [place] Comment on above: Performed By: #### C BC ADSANDY, ANEU, GFR, CMP #### [address] [address] Creatinine mass conc 1.00 mg/dL Normal 0.60-1.40 [facility] ([place] Comment on above: Performed By: #### C BC, ADSANDY ANEU, GFR, CMP #### [address] [address] Electrolyte Balance 7.0 mEq/L Normal 4.0-15.0 [facility] ([place] Comment on above: Performed By: #### C BC, ADIFF, ANEU, GFR, CMP #### [address] [address] Glucose mass conc 109 mg/dL Normal 82-115 [facility] ([place] Comment on above: Performed By: #### C BC, ADIFF, ANEU, GFR, CMP #### [address] [address] Potassium molar conc 4.1 mmol/L Normal 3.5-5.0 [facility] ([place] Comment on above: Performed By: #### C BC, ADIFF, ANEU, GFR, CMP #### [address] [address] Sodium molar conc 138 mmol/L Normal 136-145 [facility] ([place] Comment on above: Performed By: #### C BC, ADIFF, ANEU, GFR, CMP #### [facility] [address] [place] [address] MGon 06-21-2018 Magnesium mass conc 2.1 mg/dL Normal 1.6-2.4 [facility] ([place]) Comment on above: Performed By: #### M G #### [facility] [address] [place] [id number] Encounters Encounter Date Encounter Type Care Provider Facility Start: 01-24-2025 ambulatory Jaxson Galvan Facility:[facility] Start: 12-23-2024 ambulatory Richie Cowan Facility: [facility] Start: 10-17-2023 End: 10-17-2023 ambulatory [facility] Work Phone: Start: 10-17-2023 End: 10-17-2023 Patient encounter procedure [facility] Start: 06-18-2022 End: 06-18-2022 ambulatory [facility] Work Phone: Start: 06-18-2022 End: 06-18-2022 Patient encounter procedure [facility]Neurology Start: 06-21-2018 End: 06-23-2018 Evaluation and management of inpatient PRAVINMIRELLA GIANG Facility:A Immunizations Immunization Date Immunization Notes Care Provider Katherine hopkins 09-21-2020 Covid (Pfizer) [facility] 08-31-2020 Covid (Pfizer) [facility] 05-14-2016 Influenza virus vaccine [facility] Payers Date Payer Category Payer Self-pay [id number] 2018 Medicare [id number] 2018 Unknown [id number] 2016 Unknown [id number] 1955 Unknown [id number] Private Health Insurance CLI [id number] Unknown [employer] [id number] Unknown COMMERCIAL OTHER [id number] Unknown [id number] Unknown [id number] Social History Date Type Detail Facility Start: 03-17-2020 End: 03-17-2020 Tobacco smoking status NHIS Unknown if ever smoked [facility] Start: 03-17-2020 Non-smoker [facility] Start: 1955 Sex Assigned At Male [facility] Goals Date Patient Goal Desired Activity /State Evaluation note Note Date & Type Note Facility Evaluation note No assessment information availa ble [facility] Work Phone: Summary Purpose Family History No Family History Records FoundNo Family History Records Found Advance Directives No Advanced Directives Records Found Advance Directive Response Recorded Date/ Time Advance Directives Yes May 2:36pm Living Will Yes March 17, 2020 1:31pm Power of Reference Library Assistant Yes February 1:31pm Advance Directive Response Recorded Date/ Time Advance Directives Yes May 3:36pm Living Will Yes March 17, 2020 2:31pm Power of Reference Library Assistant Yes February 2:31pm Chief Complaint and Reason for Visit Chief Complaint Encounter for prepro cedural respiratory examinatio Additional Source Comments (unrecognized sect ion and content) No Status Records FoundNo Status Records Found INFORMATION SOURCE (unrecogn ized section and content) DATE CREATED AUTHOR 08/27/2018 [facility] ([place]) DATE CREATED AUTHOR AUTHOR'S ORGANIZ ATION 12/23/2024 [facility] Goals (unrecognized section and content) Goals may be documented in a n alternate section Care Teams (unrecognized sec tion and content) Team Status: Active Member Role Status Dates Dr. Jaxson Galvan MD Family Provider Active Dr. Jaxson Galvan MD Primary Care Provider Active Team Status: Inactive Member Role Status Dates Dr. Jaxson Galvan MD Primary Care Provider, Attending Provider Active FOR RECORDS PERTAINING TO PATIENTS WHO ARE OR HAVE BEEN ENROLLED IN A CHEMICAL DEPENDENCY/SUBSTANCEABUSE PROGRAM, SOME INFORMATION MAY BE OMITTED. This clinical summary was aggregated from multiple sources. Caution should be exercised in using it in the provision of clinical care. This summary normalizes information from multiple sources, and as a consequence, information in this document may materially change the coding, format and clinical context of patient data. In addition, data may be omitted in some cases. CLINICAL DECISIONS SHOULD BE BASED ON THE PRIMARY CLINICAL RECORDS. [facility] [employer] provides no warranty or guarantee of the accuracy or completeness of information in this document.
== END | disposition home or self-care (01) ==
PROVIDERS: PCP Family Medicine; Referring Provider Specialist; Visit Provider Specialist
DX: M19.011 Primary osteoarthritis, right shoulder (principal)
CPT/HCPCS: 73200

== ENCOUNTER 2025-01-24 05:30 | Day surgery (SDC) | payer MEDICARE, OTHER, SELFPAY ==
--- NOTE | 2024-12-28 13:38 | EKG12_ITS ---
Test Reason : PREOP Blood Pressure : */* mmHG Vent. Rate : 57 BPM Atrial Rate : 57 BPM P-R Int : 224 ms QRS Dur : 108 ms QT Int : 418 ms P-R-T Axes : 78 -23 3 degrees QTcB Int : 406 ms Sinus bradycardia with marked sinus arrhythmia with 1st degree A-V block Otherwise normal ECG Confirmed by LANEY NUGENT, LEVI ([id number]), magazine editor CROW HEDRICK ([id number]) on 12/29/2024 8:09:50 AM Referred By: Richie Cowan Confirmed By: LEVI DAVISON MD
[2024-12-28 14:45] LABS: Hematocrit 40.7 % (40-54); Hemoglobin 14.4 g/dL (13.0-16.5); Mean Corp Hgb Conc 35.4 g/dL (32-36); Mean Corpuscular Volume 94.9 fL (80-94); Mean Platelet Vol. 9.8 fl (6.2-12.0); Platelet Count 194 K/mm3 (150-450); RBC Distribution Width CV 13.3 % (11.6-14.6); RBC Distribution Width SD 46.9 fl (35.1-43.9); Red Blood Count 4.29 M/mm3 (4.6-6.2); White Blood Count 7.1 K/mm3 (4.4-11.0)
[2024-12-28 15:12] LABS: Magnesium 2.0 mg/dL (1.5-2.2)
[2024-12-28 15:19] LABS: Albumin, Serum 4.3 g/dL (3.4-4.8); Anion Gap 9 (5-15); BUN 19 mg/dL (4-19); BUN/Creat Ratio 16.2 RATIO (10-20); Calcium,Total 9.4 mg/dL (7.6-11.0); Carbon Dioxide 24.9 mmol/L (21.0-32.0); Chloride 105 mmol/L (98-108); Glucose 80 mg/dL (70-99); Potassium 4.6 mmol/L (3.3-5.1)
--- NOTE | 2024-12-29 19:22 | PAT.ANE_ITS ---
Pre-Assessment Diagnosis/Proposed Procedure Planned Operative Procedure(s): (R) RIGHT REVERSE TOTAL SHOULDER ARTHROPLASTY, ERAS Anesthesia History Anesthesia History - intermediate frame tender: Anesthesia History - intermediate frame tender Hx Hospitalization No 12/28/24 10:19 Any Problems With Anesthesia No 12/28/24 10:19 Cholinesterase deficiency No 12/28/24 10:19 You/Your Family Experience No 12/28/24 10:19 fever (hyperthermia) with Relationship Recent Exposure to Contagious No 03/20/20 09:51 Disease Does patient have nerve No 12/28/24 10:19 stimulator Patient instructed to have device shut off --Does patient have Pacemaker or ICD? When Was Last Pacemaker Check QUESTION #4 FULL TEXT: You/Your Family Experience fever (hyperthermia) with Anesthesia Last Oral Intake Last Oral intake: Last Oral Intake NPO since Meds taken in AM with sips of water? Meds patient instructed to take am of surgery PONV PONV - intermediate frame tender: PONV - intermediate frame tender Female No 12/28/24 10:19 HX of Motion Sickness No 12/28/24 10:19 HX of N/V After Surgery No 12/28/24 10:19 Non-Smoker Yes 12/28/24 10:19 Duration of Surgery greater Yes 12/28/24 10:19 than 60 minutes Number of Risk Factors 2 12/28/24 10:19 PONV Score Moderate Risk 12/28/24 10:19 Height & Weight Height & Weight: Anesthesia: Height & Weight Height 6 ft 2 in 03/20/20 09:51 Respiratory Assessment Respiratory Assessment - intermediate frame tender: Respiratory Tract Infection Hx - intermediate frame tender Hx Respiratory Tract Infection No 12/28/24 10:19 STOP Sleep Apnea STOP Sleep Apnea - intermediate frame tender: STOP Sleep Apnea - intermediate frame tender Hx Hypertension No 12/28/24 10:19 Hx Sleep Apnea No 12/28/24 10:19 CPAP BIPAP Do you snore loudly (louder No 12/28/24 10:19 than talking or can be heard Do you often feel tired/ No 12/28/24 10:19 fatigued/ sleepy during daytime? Has anyone observed you stop No 12/28/24 10:19 breathing during sleep? STOP Results Negative 12/28/24 10:19 QUESTION #5 FULL TEXT : Do you snore loudly (louder than talking or can be heard through closed doors)? 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 Specify any problems Hx of Preganancy in last 3 N/A 12/28/24 10:19 Months Nurse Filling Out Transfusion VCHRISTIN 12/28/24 10:19 & Questions: Date: 12/28/24 12/28/24 10:19 Time: 10:20 12/28/24 10:19 Patient unable to answer at this time (ie. confused, unrespo /Reproduction History /Reproductive History - intermediate frame tender: /Reproductive Hx- intermediate frame tender Hx Now No 12/28/24 10:19 Gestational Age (in weeks): EDC: Hx Hx Para Hx Section SAB No 12/28/24 10:19 [facility] Medical History (Updated 12/28/24 @ 10:25 by Brenda Harrington) Pre-op testing Wears dentures Alcohol use History of steroid therapy Back pain Non-smoker History of edema History of stress test Arthritis Home Medications ?Medication ?Instructions ?Recorded ?Last Taken ?Type tamsulosin 0.4 mg capsule 0.4 mg PO DAILY 06/06/16 05:00 History aspirin 81 mg tablet,delayed 81 mg PO DAILY 05/13/18 U nknown History release meloxicam 15 mg tablet 15 mg PO DAILY 12/28/24 Unkn own History Allergy/AdvReac Type Severity Reaction Status Date / Time Penicillins (PCN) Allergy Hives Verified 12/28/24 10:04 Gadolinium-MRI Contrast AdvReac Nausea Verified 12/28/24 10:04 Medium Surgical History (Updated 12/28/24 @ 10:18 by Brenda Harrington) Hx of knee surgery History of surgical procedure on eye proper using laser Hx of bilateral cataract extraction Hx of shoulder surgery History of arthroplasty of left shoulder History of carpal tunnel surgery of right wrist Hx laparoscopic cholecystectomy History of back surgery History of total right knee replacement History of total left knee replacement History of back surgery Hx of arthroscopic knee surgery Total knee replacement status Social History (Updated 06/18/18 @ 11:[address] Dipika Rodriguez, [place]) Smoking Status: Never smoker alcohol intake: former substance use type: does not use what type of physical activity do you participate in: walking and bicycling frequency: 3-4 times per week Audit: Pertinent Findings Pertinent Findings EKG Perinent findings: December 28, 2024. Sinus bradycardia at 57 bpm with marked sinus arrhythmia with first-degree AV block. Stress test pertinent findings: November 05, 2023. EF of 55%. No areas of reversibility are noted to suggest ischemia. No previous infarct was noted. Recommendation Anesthesia Recommendation Anesthesia recommendation: OPTIMIZED for anesthesia
[2025-01-24] VITALS (11 sets, daily range): BP systolic 123–159; BP diastolic 69–100; PULSE 47–55; RESP 14–16; TEMP 35.9–36.8; O2SAT 96–100; BMI 33.7
--- OUTSIDE RECORDS SUMMARY | 2025-01-24 05:32 | XMS RPT_ITS | CCD ---
Author Organization [facility] Inform ion Partnership [facility] Care Team Providers Care Ballistics Expert Name Role Phone PRAVIN GARCIA Admitting Unavailable PHYSICIAN, NOT RECORDED Primary Care Unavaila STEF Lord Attending Unavailable PHIL RODARTE Consulting Unavailable ESDRAS HEARD JR. Consulting Unavailab DEBORAH Cornejo Consulting Unavailable Mandy NUGENT, Dr. Puri Primary Care Provider Camryn NUGENT, Dr. Quiroz Attending Provider [id number] Camryn NUGENT, Dr. Quiroz Referring Provider [phone] Richie Prieto Attending Unavailable Richie Prieto Referring Unavailable Jaxson Galvan Primary Care Unavailable Jaxson Galvan Primary Care Unavailable Richie Prieto Attending Unavailable Richie Prieto Referring Unavailable Richie Prieto Attending Unavailable Richie Prieto Referring Unavailable Jaxson Galvan Primary Care Unavailable Richie Prieto Referring Unavailable Nico Valera Attending Unavailable Jaxson Galvan Primary Care Unavailable Allergies Allergy Classification Reported Allergen(s) Allergy Type Date of Onset Reaction(s) Facility (4 sources) Penicillins Allergy to substance 0 Hives [facility] (4 sources) Gadolinium-MRI Contrast Medium Propensity to adverse reactions 0 Nausea [facility] (1 source) Penicillins Drug allergy (disorder) 5 [facility] Repository (1 source) Gadolinium-MRI Contrast Medium Drug allergy (disorder) 5 [facility] Repository Medications Current Medications Medication Drug Class(es) Dates Sig (Normalized) Sig (Original) aspirin 81 mg delayed release oral tablet (4 sources) Platelet Aggregation Inhibitor, Nonsteroidal Anti-inflammatory Drug Start: 05-13-2018 take 1 tablet by mouth once daily Aspirin 81 MG tablet,delayed release (/EC) Active 81 mg PO DAILY May 13, 2018 1:00am meloxicam 15 mg oral tablet (1 source) Nonsteroidal Anti-inflammatory Drug Start: 12-28-2024 take 1 tablet by mouth once daily Meloxicam 15 mg tablet Active 15 mg PO DAILY December 28, 2024 12:00am tamsulosin hydrochloride 0.4 mg oral capsule (4 sources) alpha-Adrenergic Pranav Start: 06-06-2016 take 1 capsule by mouth once daily Tamsulosin 0.4 MG capsule Active 0.4 mg PO DAILY June 06, 2016 1:00am Problems Problem Classification Problem Date Documented Da te Episodic/Chronic Osteoarthritis (1 source) Primary osteoarthritis, right shoulder; Translations: [Primary osteoarthritis, right shoulder] Onset: 01-02-2025 Chronic Other bone disease and musculoskeletal deformities (8 sources) Segmental and somatic dysfunction; Translations: [Segmental and somatic dysfunction of cervical region] 07-15-2017 Episodic Other upper respiratory infections (4 sources) Streptococcal sore throat; Translations: [Streptococcal pharyngitis] 01-21-2019 Episodic Sprains and strains (4 sources) Acute cervical sprain; Translations: [Sprain of joints and ligaments of unspecified parts of neck, initial encounter] 07-21-2017 Episodic Results Test Name Value Interpretation Reference Range Facility MR/PATMaik 12-29-2024 MR/PAT.PAUL[facility] [place] [facility] Department [address] [place] [address] PAT - Anesthesia 12/29/241921 MR#: [id number] Acct: [id number] Name: CARL GRAFF Rep #: [id number] : 1955 69 From: Artur Fortune MD PCP: Dr. Jaxson Galvan MD Status:PRE [facility] Y Race: C Location: [facility] Pre-Assessment Diagnosis/Proposed Procedure Planned Operative Procedure(s): (R) RIGHT REVERSE TOTAL SHOULDER ARTHROPLASTY, ERAS Anesthesia History Anesthesia History - supervisor lump room: Anesthesia History - supervisor lump room Hx Hospitalization No 12/28/24 10:19 Any Problems With Anesthesia No 12/28/24 10:19 Cholinesterase deficiency No 12/28/24 10:19 You/Your Family Experience No 12/28/24 10:19 fever (hyperthermia) with Relationship Recent Exposure to Contagious No 03/20/20 09:51 Disease Does patient have nerve No 12/28/24 10:19 stimulator Patient instructed to have device shut off --Does patient have Pacemaker or ICD? When Was Last Pacemaker Check QUESTION #4 FULL TEXT: You/Your Family Experience fever (hyperthermia) with Anesthesia Last Oral Intake Last Oral intake: Last Oral Intake NPO since Meds taken in AM with sips of water? Meds patient instructed to take am of surgery PONV PONV - supervisor lump room: PONV - supervisor lump room Female No 12/28/24 10:19 HX of Motion Sickness No 12/28/24 10:19 HX of N/V After Surgery No 12/28/24 10:19 Non-Smoker Yes 12/28/24 10:19 Duration of Surgery greater Yes 12/28/24 10:19 than 60 minutes Number of Risk Factors 2 12/28/24 10:19 PONV Score Moderate Risk 12/28/24 10:19 Height Weight Height Weight: Anesthesia: Height Weight Height 6 ft 2 in 03/20/20 09:51 Respiratory Assessment Respiratory Assessment - supervisor lump room: Respiratory Tract Infection Hx - supervisor lump room Hx Respiratory Tract Infection No 12/28/24 10:19 STOP Sleep Apnea STOP Sleep Apnea - supervisor lump room: STOP Sleep Apnea - supervisor lump room Hx Hypertension No 12/28/24 10:19 Hx Sleep Apnea No 12/28/24 10:19 CPAP BIPAP Do you snore loudly (louder No 12/28/24 10:19 than talking or can be heard Do you often feel tired/ No 12/28/24 10:19 fatigued/ sleepy during daytime? Has anyone observed you stop No 12/28/24 10:19 breathing during sleep? STOP Results Negative 12/28/24 10:19 QUESTION #5 FULL TEXT : Do you snore loudly (louder than talking or can be heard through closed doors)? 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 Specify any problems Hx of Preganancy in last 3 N/A 12/28/24 10:19 Months Nurse Filling Out Transfusion VCHRISTIN 12/28/24 10:19 Questions: Date: 12/28/24 12/28/24 10:19 Time: 10:20 12/28/24 10:19 Patient unable to answer at this time (ie. confused, unrespo /Reproductio n History /Reproductiv e History - supervisor lump room: /Reproductiv e Hx- supervisor lump room Hx Now No 12/28/24 10:19 Gestational Age (in weeks): EDC: Hx Hx Para Hx Section SAB No 12/28/24 10:19 [facility] Medical History (Updated 12/28/24 @ 10:25 by Brenda Harrington) Pre-op testing Wears dentures Alcohol use History of steroid therapy Back pain Non-smoker History of edema History of stress test Arthritis Home Medications ???Medication ???Instructions ???Recorded ???Last Taken ???Type tamsulosin 0.4 mg capsule 0.4 mg PO DAILY 06/06/16 05/14/17 05:00 History aspirin 81 mg tablet,delayed 81 mg PO DAILY 05/13/18 Unknown Hi story release meloxicam 15 mg tablet 15 mg PO DAILY 12/28/24 Unknown Hi story Allergy/AdvReac Type Severity Reaction Status Date / Time Penicillins (PCN) Allergy Hives Verified 12/28/24 10:04 Gadolinium-MRI Contrast AdvReac Nausea Verified 12/28/24 10:04 Medium Surgical History (Updated 12/28/24 @ 10:18 by Brenda Harrington) Hx of knee surgery History of surgical procedure on eye proper using laser Hx of bilateral cataract extraction Hx of shoulder (more content not included)... Normal [facility] 12 Lead EKGon 12-28-2024 12 Lead EKG [facility] [address] [place] [address] 12 Lead EKG 12/28/24 1352 MR#: [id number] Acct: [id number] Name: CARL GRAFF Rep #: [id number] : 1955 69 From: Nico Valera MD Attending Dr: Dr. Richie Prieto MD Status: PRE [facility] Ordering Dr: Richie Prieto MD Date: 12/28/24 Location: [facility] Sex: M C Admitted: Test Reason : PREOP Blood Pressure : */* mmHG Vent. Rate : 57 BPM Atrial Rate : 57 BPM P-R Int : 224 ms QRS Dur : 108 ms QT Int : 418 ms P-R-T Axes : 78 -23 3 degrees QTcB Int : 406 ms Sinus bradycardia with marked sinus arrhythmia with 1st degree A-V block Otherwise normal ECG Confirmed by NICO VALERA MD ([id number]), film editor CROW HEDRICK ([id number]) on 12/29/2024 8:09:50 AM Referred By: Richie Prieto Confirmed By: NICO VALERA MD 12/29/24 0809 Date Nico Valera MD CC: Dr. Jaxson Galvan MD; Dr. Richie Prieto MD Signed Normal [facility] Albumin, Serumon 12-28-2024 Albumin [Mass/Vol] 4.3 g/dL Normal 3.4-4.[address] [facility] Comment on above: Performed By: #### L 100.0500, L500.2500, L501.1800, M100.651 #### [facility] [address] [place], [address] Basic Metabolic Profile (BMP )on 12-28-2024 BUN/CRE 16.2 RATIO Normal 10-20 [facility] Comment on above: Performed By: #### L 100.0500, L500.2500, L501.1800, M100.651 #### [facility] [address] [place], [address] Calcium [Mass/Vol] 9.4 mg/dL Normal 7.6-11.[address] [facility] Comment on above: Performed By: #### L 100.0500, L500.2500, L501.1800, M100.651 #### [facility] [address] [place], [address] Chloride [Moles/Vol] 105 mmol/L Normal 98-108 [facility] Comment on above: Performed By: #### L 100.0500, L500.2500, L501.1800, M100.651 #### [facility] [address] [place], [address] CO2 [Moles/Vol] 24.9 mmol/L Normal 21.0-32.0 [facility] Comment on above: Performed By: #### L 100.0500, L500.2500, L501.1800, M100.651 #### [facility] [address] [place], [address] Creatinine [Mass/Vol] 1.15 mg/dL Normal 0.70-1.20 [facility] Comment on above: Performed By: #### L 100.0500, L500.2500, L501.1800, M100.651 #### [facility] [address] [place], [address] GAP 9 Normal 5-15 [facility] Comment on above: Performed By: #### L 100.0500, L500.2500, L501.1800, M100.651 #### [facility] [address] [place], [address] GFR/1.73 sq M.predicted among non-blacks MDRD (S/P/Bld) [Vol rate/Area] 68 mL/min/{1.73_m2} Normal >60 [facility] Comment on above: Result Comment: mL/m in/1.73m2 CKD-EPI Creatinine Equation (2020) Performed By: #### L 100.0500, L500.2500, L501.1800, M100.651 #### [facility] [address] [place], [address] Glucose [Mass/Vol] 80 mg/dL Normal 70-[address] [facility] Comment on above: Performed By: #### L 100.0500, L500.2500, L501.1800, M100.651 #### [facility] [address] [place], [address] Potassium [Moles/Vol] 4.6 mmol/L Normal 3.3-5.1 [facility] Comment on above: Performed By: #### L 100.0500, L500.2500, L501.1800, M100.651 #### [facility] [address] [place], [address] Sodium [Moles/Vol] 139 mmol/L Normal 133-[address] [facility] Comment on above: Performed By: #### L 100.0500, L500.2500, L501.1800, M100.651 #### [facility] [address] [place], [address] Urea nitrogen [Mass/Vol] 19 mg/dL Normal 4-19 [facility] Comment on above: Performed By: #### L 100.0500, L500.2500, L501.1800, M100.651 #### [facility] [address] [place], [address] CBC-Complete Blood Cnt No Di ffon 12-28-2024 Erythrocyte distribution width (RBC) [Ratio] 13.3 % Normal 11.6-14.6 [facility] Comment on above: Performed By: #### L 100.0500, L500.2500, L501.1800, M100.651 #### [facility] [address] [place], [address] Hematocrit (Bld) [Volume fraction] 40.7 % Normal 40-54 [facility] Comment on above: Performed By: #### L 100.0500, L500.2500, L501.1800, M100.651 #### [facility] [address] [place], [address] Hemoglobin (Bld) [Mass/Vol] 14.4 g/dL Normal 13.0-16.5 [facility] Comment on above: Performed By: #### L 100.0500, L500.2500, L501.1800, M100.651 #### [facility] [address] [place], [address] MCH (RBC) [Entitic mass] 33.6 pg High 27.0-32.0 [facility] Comment on above: Performed By: #### L 100.0500, L500.2500, L501.1800, M100.651 #### [facility] [address] [place], [address] MCHC (RBC) [Mass/Vol] 35.4 g/dL Normal 32-36 [facility] Comment on above: Performed By: #### L 100.0500, L500.2500, L501.1800, M100.651 #### [facility] [address] [place], [address] MCV (RBC) [Entitic vol] 94.9 fL High 80-94 [facility] Comment on above: Performed By: #### L 100.0500, L500.2500, L501.1800, M100.651 #### [facility] [address] [place], [address] Platelet mean volume (Bld) [Entitic vol] 9.8 fL Normal 6.2-12.0 [facility] Comment on above: Performed By: #### L 100.0500, L500.2500, L501.1800, M100.651 #### [facility] [address] [place], [address] Platelets (Bld) [#/Vol] 194 10*3/uL Normal 150-450 [facility] Comment on above: Performed By: #### L 100.0500, L500.2500, L501.1800, M100.651 #### [facility] [address] [place], [address] RBC (Bld) [#/Vol] 4.29 10*6/uL Low 4.6-6.2 [facility] Comment on above: Performed By: #### L 100.0500, L500.2500, L501.1800, M100.651 #### [facility] [address] [place], [address] RDW SD 46.9 fl High 35.1-43.9 [facility] Comment on above: Performed By: #### L 100.0500, L500.2500, L501.1800, M100.651 #### [facility] [address] [place], [address] WBC (Bld) [#/Vol] 7.1 10*3/uL Normal 4.4-11.[address] [facility] Comment on above: Performed By: #### L 100.0500, L500.2500, L501.1800, M100.651 #### [facility] [address] [place], [address] MRSA/SAID NASAL SCREENon MRSA+SAID SCRN Reason for Exam: PRE-OP MRSA MRSA Negative S. AUREUS S. aureus Negative Normal [facility] Comment on above: Performed By: #### L 100.0500, L500.2500, L501.1800, M100.651 #### [facility] [address] [place], [address] Magnesiumon 12-28-2024 Magnesium [Mass/Vol] 2.0 mg/dL Normal 1.5-2.2 [facility] Comment on above: Performed By: #### L 501.5200 #### [facility] [address] [place], [address] Extremity Upper without Cont raon 12-23-2024 Extremity Upper without Contra [facility] [address] [place] [address] Extremity Upper without Contra MR#: [id number] Acct: [id number] Name: CARL GRAFF Rep #: [id number] : 1955 M 69 From: Marcellus Gaitan MD PCP: Dr. Jaxson Galvan MD Status: REG CLI Study: Extremity Upper without Contra Date of Exam: 0 12/23/24 Exam# [id number] Ordering Dr: Richie Prieto MD PROCEDURE: EXTREMITY UPPER WITHOUT CONTRA 12/23/2024 REASON FOR EXAM: PRIMARY OSTEOARTHRITIS, RT SHOULDER TECHNIQUE: EXTREMITY UPPER WITHOUT CONTRA Coronal and Sagittal reconstruction series were provided. One or more dose reduction techniques were used (e.g., Automated exposure control, adjustment of the mA and/or kV according to patient size, use of iterative reconstruction technique. RADIATION DOSE SUMMARY: CTDlvol: 26.7 mGy DLP: 822 mGycm COMPARISON: None FINDINGS: No displaced fracture or traumatic malalignment. Severe joint space narrowing with hmqn-zu-tjdu articulation at the glenohumeral joint, with subchondral sclerosis and cystic change in addition to osteophyte formation. Zjml-tk-smrwqzkj joint space narrowing at the acromioclavicular joint. Degenerative changes of the spine are partially imaged. There is calcifications at the acromiohumeral interval. Probable fluid within the biceps tendon sheath. The soft tissues are unremarkable. The visualized portions of the lung are clear. CT/Extremity Upper without Contra IMPRESSION: 1. Advanced osteoarthritis of the glenohumeral joint. 2. Calcifications at the acromiohumeral interval, likely sequela of rotator cuff calcific tendinopathy. 3. Probable fluid within the biceps tendon sheath, as may be seen with biceps tendinopathy/tenosyno vitis. 4. Nusi-gd-gwqksizo osteoarthritis of the acromioclavicular joint. Reading Location: [facility] CC: Dr. Jaxson Galvan MD; Dr. Richie Prieto MD Patch Washer: Signed Normal [facility] Absolute lymphocyte countOrd ered By: Jaxson Galvan on 10-17-2023 Lymphocytes Auto (Unsp spec) [#/Vol] 2.65 10*3/uL 0.83-4.51 [facility] Automated lymphocyte count a s percentage of total leukocytesOrdered By: Jaxson Galvan on 10-17-2023 Lymphocytes/100 WBC Auto (Unsp spec) 33.5 % 19-41 [facility] Basophil percentageOrdered B y: Jaxson Galvan on 10-17-2023 Basophils/100 WBC (Bld) 1.4 % 0-1 [facility] Bilirubin [Mass/Vol] 1.90 mg/dL 0.20-1.00 [facility] Comment on above: For patients on eltr ombopag therapy, use of Dimension [place] TBIL is not recommended. Chloride [Moles/Vol] 107 mmol/L 98-107 [facility] Eosinophils/100 WBC (Bld) 3.3 % 0-5 [facility] Glucose [Mass/Vol] 90 mg/dL 74-[address] [facility] Hemoglobin (Bld) [Mass/Vol] 14.8 g/dL 13.0-16.5 [facility] Monocytes/100 WBC (Bld) 9.5 % 0-10 [facility] Neutrophils (Bld) [#/Vol] 4.1 10*3/uL 2.0-7.7 [facility] Neutrophils/100 WBC (Bld) 51.9 % 47-70 [facility] Potassium [Moles/Vol] 4.2 mmol/L 3.5-5.1 [facility] Protein [Mass/Vol] 7.8 g/dL 6.4-8.[address] [facility] Sodium [Moles/Vol] 137 mmol/L 136-[address] [facility] Testosterone [Mass/Vol] 387.37 ng/dL [facility] Comment on above: CENTRAL 90% REFERENC E RANGES MALE AGE <50 197.44 - 669.58 ng/dL MALE AGE > or = 50 187.72 - 684.19 ng/dL FEMALE AGE <50 8.38 - 35.01 ng/dL FEMALE AGE > or = 50 <7.00 - 35.92 ng/dL Effective as of 01/23/21 WBC (Bld) [#/Vol] 7.9 10*3/uL 4.4-11.[address] [facility] Determination of erythrocyte mean corpuscular volume (MCV)Ordered By: Jaxson Galvan on 10-17-2023 MCV (RBC) [Entitic vol] 95.5 fL 80-94 [facility] Erythrocyte distribution wid th ratioOrdered By: Jaxson Galvan on 10-17-2023 Erythrocyte distribution width (RBC) [Ratio] 13.2 % 11.6-14.6 [facility] Erythrocyte distribution wid th standard deviationOrdered By: Jaxson Galvan on 10-17-2023 Erythrocyte distribution width (RBC) [Entitic vol] 46.7 fL 35.1-43.9 [facility] Hematocrit Auto (Bld) [Volum e fraction]Ordered By: Jaxson Galvan on 10-17-2023 Hematocrit (Bld) [Volume fraction] 44.1 % 40-54 [facility] Immature granulocytes/100 WB C Auto (Bld)Ordered By: Jaxson Galvan on 10-17-2023 Immature granulocytes/100 WBC (Bld) 0.400 % 0.0-0.9 [facility] Comment on above: IG% - Immature Granu locytes (promyelocytes, myelocytes and metamyelocytes) > 1% indicates that a LEFT SHIFT is Present. Laboratory - Chemistry and C hemistry - challengeOrdered By: Jaxson Galvan on 10-17-2023 Albumin/Globulin [Mass ratio] 1.1 {ratio} 0.9-2.4 [facility] ALP [Catalytic activity/Vol] 92 U/L 45-117 [facility] ALT [Catalytic activity/Vol] 24 U/L 16-61 [facility] CO2 [Moles/Vol] 25.0 mmol/L 21.0-32.0 [facility] Globulin (S) [Mass/Vol] 3.7 g/dL 2.2-4.2 [facility] Urea nitrogen/Creatinine [Mass ratio] 15.0 mg/mg 10-20 [facility] Laboratory - Hematology and Cell countsOrdered By: Jaxson Galvan on 10-17-2023 MCH (RBC) [Entitic mass] 32.0 pg 27.0-32.0 [facility] MCHC (RBC) [Mass/Vol] 33.6 g/dL 32-36 [facility] Nucleated RBC/100 WBC (Bld) [Ratio] 0 % 0-5 [facility] Platelet mean volume (Bld) [Entitic vol] 10.0 fL 6.2-12.0 [facility] Platelets (Bld) [#/Vol] 228 10*3/uL 150-450 [facility] No Panel InformationOrdered By: Jaxson Galvan on 10-17-2023 Estimated GFR (MDRD) Amer 72 mL/min >60 [facility] Comment on above: GFR Calc Estimated GFR (MDRD) Non-Af Amer 60 mL/min >60 [facility] Comment on above: Non- GFR Calc RBC Auto (Bld) [#/Vol]Ordere d By: Jaxson Galvan on 10-17-2023 RBC (Bld) [#/Vol] 4.62 10*6/uL 4.6-6.2 [facility] Serum or plasma calcium elodia urement (mass/volume)Ordered By: Jaxson Galvan on 10-17-2023 Calcium [Mass/Vol] 9.3 mg/dL 8.5-10.[address] [facility] Serum or plasma creatinine m easurement (mass/volume)Ordered By: Jaxson Galvan on 10-17-2023 Creatinine [Mass/Vol] 1.27 mg/dL 0.70-1.30 [facility] Comment on above: The validity of the calculated GFR & GFRAA in patients over 70 years has not been determined. Clinical correlation is essential. Serum or plasma thyroid stim ulating hormone (TSH) measurement (units/volume)Ordered By: Jaxson Galvan on 10-17-2023 TSH Qn 4.51 uIU/mL 0.358-3.74 [facility] Serum or plasma urea nitroge n measurement (mass/volume)Ordered By: Jaxson Galvan on 10-17-2023 Urea nitrogen [Mass/Vol] 19 mg/dL 7-18 [facility] Thin prep Papanicolaou smear with manual screeningOrdered By: Jaxson Galvan on 10-17-2023 Thin prep Papanicolaou smear with manual screening 4.1 g/dL 3.2-5.0 [facility] Thin prep Papanicolaou smear with manual screening 18 U/L 15-37 [facility] Thin prep Papanicolaou smear with manual screening 5 5-15 [facility] Absolute lymphocyte counton 06-18-2022 Lymphocytes Auto (Unsp spec) [#/Vol] 2.53 10*3/uL 0.83-4.51 [facility] Work Phone: Basophil percentageon 2021 Basophils/100 WBC (Bld) 1.7 % 0-1 [facility] Work Phone: Chloride [Moles/Vol] 109 mmol/L 98-107 [facility] Work Phone: Eosinophils/100 WBC (Bld) 7.5 % 0-5 [facility] Work Phone: Glucose [Mass/Vol] 102 mg/dL 74-[address] [facility] Work Phone: Comment on above: Fasting Glucose resu lt from 100 to 125 mg/dL suggests IMPAIRED HOMEOSTASIS per A.D.A. criteria. Neutrophils (Bld) [#/Vol] 2.8 10*3/uL 2.0-7.7 [facility] Work Phone: Neutrophils/100 WBC (Bld) 43.1 % 47-70 [facility] Work Phone: Potassium [Moles/Vol] 4.2 mmol/L 3.5-5.1 [facility] Work Phone: Sodium [Moles/Vol] 142 mmol/L 136-[address] [facility] Work Phone: WBC (Bld) [#/Vol] 6.5 10*3/uL 4.4-11.[address] [facility] Work Phone: Blood erythrocytes count (nu mber/volume)on 06-18-2022 RBC (Bld) [#/Vol] 4.49 10*6/uL 4.6-6.2 [facility] Work Phone: Blood hemoglobin measurement (mass/volume)on 06-18-2022 Hemoglobin (Bld) [Mass/Vol] 15.1 g/dL 13.0-16.5 [facility] Work Phone: Blood lymphocytes/100 leukoc yteson 06-18-2022 Lymphocytes/100 WBC (Bld) 38.9 % 19-41 [facility] Work Phone: Blood monocytes/100 leukocyt eson 06-18-2022 Monocytes/100 WBC (Bld) 8.5 % 0-10 [facility] Work Phone: Blood platelet mean volumeon 06-18-2022 Platelet mean volume (Bld) [Entitic vol] 9.2 fL 6.2-12.0 [facility] Work Phone: Determination of erythrocyte mean corpuscular volume (MCV)on 06-18-2022 MCV (RBC) [Entitic vol] 97.6 fL 80-94 [facility] Work Phone: Hematocrit Auto (Bld) [Volum e fraction]on 06-18-2022 Hematocrit (Bld) [Volume fraction] 43.8 % 40-54 [facility] Work Phone: Laboratory - Chemistry and C hemistry - challengeon 06-18-2022 CO2 [Moles/Vol] 31.0 mmol/L 21.0-32.0 [facility] Work Phone: Urea nitrogen/Creatinine [Mass ratio] 17.3 mg/mg 04-18 [facility] Work Phone: Laboratory - Hematology and Cell countson 06-18-2022 Erythrocyte distribution width (RBC) [Entitic vol] 47.4 fL 35.1-43.9 [facility] Work Phone: Erythrocyte distribution width (RBC) [Ratio] 13.1 % 11.6-14.6 [facility] Work Phone: Immature granulocytes/100 WBC (Bld) 0.300 % 0.0-0.9 [facility] Work Phone: Comment on above: IG% - Immature Granu locytes (promyelocytes, myelocytes and metamyelocytes) > 1% indicates that a LEFT SHIFT is Present. MCH (RBC) [Entitic mass] 33.6 pg 27.0-32.0 [facility] Work Phone: Nucleated RBC/100 WBC (Bld) [Ratio] 0 % 0-5 [facility] Work Phone: MCHC Auto (RBC) [Mass/Vol]on 06-18-2022 MCHC (RBC) [Mass/Vol] 34.5 g/dL 32-36 [facility] Work Phone: No Panel Informationon 06-18 Estimated GFR (MDRD) Amer 85 mL/min >60 [facility] Work Phone: Comment on above: GFR Calc Estimated GFR (MDRD) Non-Af Amer 71 mL/min >60 [facility] Work Phone: Comment on above: Non- GFR Calc Platelets bldon 06-18-2022 Platelets (Bld) [#/Vol] 218 10*3/uL 150-450 [facility] Work Phone: Serum or plasma albumin elodia urement (mass/volume)on 06-18-2022 Albumin [Mass/Vol] 3.7 g/dL 3.2-5.[address] [facility] Work Phone: Serum or plasma calcium elodia urement (mass/volume)on 06-18-2022 Calcium [Mass/Vol] 9.3 mg/dL 8.5-10.[address] [facility] Work Phone: Serum or plasma creatinine m easurement (mass/volume)on 06-18-2022 Creatinine [Mass/Vol] 1.10 mg/dL 0.70-1.30 [facility] Work Phone: Comment on above: The validity of the calculated GFR & GFRAA in patients over 70 years has not been determined. Clinical correlation is essential. Serum or plasma urea nitroge n measurement (mass/volume)on 12-20-2022 Urea nitrogen [Mass/Vol] 19 mg/dL 7-18 [facility] Work Phone: Thin prep Papanicolaou smear with manual screeningon 06-18-2022 Thin prep Papanicolaou smear with manual screening 2 5-15 [facility] Work Phone: MRI MRCPon 08-27-2018 MRI MRCP [...] 4:54:05 PM Sign Date: 06/21/2018 4:57:49 PM Normal [facility] ([place]) Final Surgical Pathology Rep tenzin 06-24-2018 Final Surgical Pathology Report . Pathology Reports Accession: Collected Date/Time: Received Date/Time: Pathologist: [id number] 06/22/2018 09:17 EST 06/22/2018 10:25 EST DO [...] thickness. RS -1 Dictated by Della BASHIR ([facility]) MICROSCOPIC DESCRIPTION: Slides reviewed. Electronically Signed by Pathology Report verified by [facility] Electronically signed by ROMEO MARTINEZ DO Sign out Date: 06/24/2018 12:59 Performing Lab: [address] Normal [facility] ([place]) Comment on above: Performed By: #### C BC, ADIFF, ANEU, GFR, CMP #### [place] [address] .Auto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 surgery - (04/22/2022) JUDITH/BILAT RT Knee Tibiofibular Joint Fusion W/ Peroneal Nerve Decompression - (07/05/2022) DR. PRIETO @ [facility] Anesthesia Complications: None Assistive Devices: Dentures Reviewed, no changes. SOCIAL HISTORY: Social History: Marital: .Occupation: Retired.Work Status: Retired.Hand Dominance: Left-handed. Personal Habits: Cigarette Use: Former.Smokeless Tobacco: Never Used Smokeless Tobacco.E-Cigarette Use: Never used.Alcohol: Occasionally.Drug Use: Former Illegal Drug User.Enjoy Exercising: Exercises 1-3 X/Week. Reviewed, no changes. VITALS: Ht: 74 Wt: 263lb Wt k.297 BMI: 33.8 BP: 137/78 Pulse: 57 Resp: 10 T: 97.8 T: 36.6C Pain Level: 5/10 O2SatR: 97 ALLERGIES: Penicillin MEDICATIONS: Oxycodone HCL 5 mg 1-2 tab by mouth every 4 hours, Zofran 4 mg 1-2 tablets by mouth every 8 as needed nausea or vomiting, Famotidine 20 mg 1 by mouth every day, Meloxicam 7.5 mg 1 by mouth twice a day, Flomax 0.4 mg 1 cap po daily, Aspir-81 81 mg 1 by mouth every day, Vitamin D 25 mcg (1000 Ut) 1 po qdaily PRE-OP EXAM: General appearance:NORMAL Other: Eyes: Conjunctivae and lids: NORMAL Pupils: ERR Ears, Nose, Mouth, and Throat: NORMAL Other: Inspection of lips, teeth and gums: NORMAL Other: Neck: Examination of neck (more content not included)... [facility] Radiology Diagnostic study note 12-26-2024 Note Date & Type Note Facility 12-26-2024 Radiology Diagnostic study note [facility] [address] [place] [address] Extremity Upper without Contra MR#: [id number] Acct: [id number] Name: CARL GRAFF Rep #: [id number] : 1955 M 69 From: Leisa Gaitan MD PCP: Dr. Jaxson Galvan MD Status: REG C LI Study:Extremity Upper without Contra Date of Exam: 12/23/24 Exam# [id number] Ordering Dr: Prema Prieto MD PROCEDURE: EXTREMITY UPPER WITHOUT CONTRA 12/23/2024 REASON FOR EXAM: PRIMARY OSTEOARTHRITIS, RT SHOULDER TECHNIQUE: EXTREMITY UPPER WITHOUT CONTRA Coronal and Sagittal reconstruction series were provided. One or more dose reduction techniques were used (e.g., Automated exposure control, adjustment of the mA and/or kV according to patient size, use of iterative reconstruction technique. RADIATION DOSE SUMMARY: CTDlvol: 26.7 mGy DLP: 822 mGycm COMPARISON: None FINDINGS: No displaced fracture or traumatic malalignment. Severe joint space narrowing with aecq-ho-gfdv articulation at the glenohumeral joint, with subchondral sclerosis and cystic change in addition to osteophyte formation. Xtpm-lg-pbfdesel joint space narrowing at the acromioclavicular joint. Degenerative changes of the spine are partiallyimaged. There is calcifications at the acromiohumeral interval. Probable fluid within the biceps tendon sheath. The soft tissues are unremarkable. The visualized portions of the lung are clear. CT/Extremity Upper without Contra IMPRESSION: 1. Advanced osteoarthritis of the glenohumeral joint. 2. Calcifications at the acromiohumeral interval, likely sequela of rotator cuff calcific tendinopathy. 3. Probable fluid within the biceps tendon sheath, as may be seen with biceps tendinopathy/tenosynovitis. 4. Pxvn-op-trwgcwws osteoarthritis of the acromioclavicular joint. Reading Location: [id number] CC: Dr. Jaxson Galvan MD; Dr. Richie Prieto MD ~ Patch Washer: Signed [facility] Evaluation note Note Date & Type Note Facility Evaluation note No assessment information availa ble [facility] Work Phone: Reason for referral (narrative) Note Date & Type Note Facility Reason for referral (narrative) No reason for referral information available [facility] Work Phone: Summary Purpose Family History No Family History Records FoundNo Family History Records Found Advance Directives No Advanced Directives Records Found Advance Directive Response Recorded Date/ Time Advance Directives Yes May 2:36pm Living Will Yes March 17, 2020 1:31pm Power of Junior Technical Writer Yes February 1:31pm Advance Directive Response Recorded Date/ Time Advance Directives Yes May 3:36pm Living Will Yes March 17, 2020 2:31pm Power of Junior Technical Writer Yes February 2:31pm Advance Directive Response Recorded Date/ Time Advance Directives Yes May 3:36pm Chief Complaint and Reason for Visit Chief Complaint Encounter for prepro cedural respiratory examinatio Chief Complaint Admit Date PRIMARY OSTEOARTHRITIS, RT SHOULDER December 23, 2024 6:22pm Additional Source Comments (unrecognized sect ion and content) No Status Records FoundNo Status Records Found INFORMATION SOURCE (unrecogn ized section and content) DATE CREATED AUTHOR 08/27/2018 [facility] ([place]) DATE CREATED AUTHOR AUTHOR'S ORGANIZ ATION 01/21/2025 [facility] Goals (unrecognized section and content) Goals may be documented in a n alternate section Care Teams (unrecognized sec tion and content) Team Status: Active Member Role Status Dates Dr. Jaxson Galvan MD Family Provider Active Dr. Jaxson Galvan MD Primary Care Provider Active Team Status: Inactive Member Role Status Dates Dr. Jaxson Galvan MD Primary Care Provider, Attending Provider Active Team Status: Active Member Role/Relationship Status Dates Dr. Jaxson Galvan MD Primary Care Provider Active Team Status: Inactive Member Role/Relationship Status Dates Dr. Jaxson Galvan MD Primary Care Provider Active Start: December 23, 2024 End: December 23, 2024 Dr. Richie Prieto MD Attending Provider Active Start: December 23, 2024 End: December 23, 2024 Dr. Richie Prieto MD Referring Provider Active Start: December 23, 2024 End: December 23, 2024 FOR RECORDS PERTAINING TO PATIENTS WHO ARE [...] BE BASED ON THE PRIMARY CLINICAL RECORDS. [employer] provides no warranty or guarantee of the accuracy or completeness of information in this document.
[2025-01-24] MEDS: LR 1,000 ML - BOLUS PREOP 999 ML IV (06:08)
[2025-01-24] MEDS: Magnesium 1 GM over 15 mins IV (06:18)
[2025-01-24] MEDS: Vancomycin HCl 1,750 MG in 0.9% Normal Saline (500mL Bag) 500 ML 167 MG IV (06:31)
--- NOTE | 2025-01-24 06:42 | PCM.PRE.AN2 ---
ASA Classification* ASA Classification ASA Classification: 2 Assessment & Plan Anesthesia* Anesthesia Assessment Anesthesia Assessment: Discussed sedation and/or anesthesia options, risks, benefits, and alternatives with patient/parents/legal guardian/POA. Questions invited. The patient/parents/legal guardian/POA seems to understand and agrees to proceed with anesthesia plan. Reviewed the physical assessment, medical history, allergy history and patient home medications list prior to surgery/procedure/anesthetic and documented any changes. Performed airway and anesthesia risk assessments. Anesthesia Type Anesthesia Type: General and Block Anesthesia Focused Assessment* Temperature: 98.2 F Pulse Rate: 54 Blood Pressure: 159/80 Respiratory Rate: 14 Pulse Ox: 99 Airway Assessment Mouth opens: >3 cm Mallampati Score: II Labs Anesthesia Preop lab: CBC WBC 7.1 K/mm3 (4.4-11.0) 12/28/24 13:28 12/28/24 RBC 4.29 M/mm3 (4.6-6.2) L 12/28/24 13:28 12/28/24 Hgb 14.4 g/dL (13.0-16.5) 12/28/24 13:28 12/28/24 Hct 40.7 % (40-54) 12/28/24 13:28 12/28/24 Plt Count 194 K/mm3 (150-450) 12/28/24 13:28 12/28/24 CHEMISTRY Potassium 4.6 mmol/L (3.3-5.1) 12/28/24 13:28 12/28/24 Sodium 139 mmol/L (133-145) 12/28/24 13:28 12/28/24 Magnesium 2.0 mg/dL (1.5-2.2) 12/28/24 13:28 12/28/24 BUN 19 mg/dL (4-19) 12/28/24 13:28 12/28/24 Creatinine 1.15 mg/dL (0.70-1.20) 12/28/24 13:28 12/28/24 Glucose 80 mg/dL (70-99) 12/28/24 13:28 12/28/24 TSH 4.51 uIU/mL (0.358-3.74) H 10/17/23 14:21 10/17/23 COAG Pre-Assessment Diagnosis/Proposed Procedure Planned Operative Procedure(s): (R) RIGHT REVERSE TOTAL SHOULDER ARTHROPLASTY, ERAS Anesthesia History 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 When Was Last Pacemaker Check QUESTION #4 FULL TEXT: You/Your Family Experience fever (hyperthermia) with Anesthesia Last Oral Intake Last Oral intake: Last Oral Intake NPO since 21:00 01/24/25 06:23 Meds taken in AM with sips of No 01/24/25 06:23 water? Meds patient instructed to take am of surgery PONV PONV - court bailiff or sheriff: PONV - court bailiff or sheriff Female No 12/28/24 10:19 HX of Motion Sickness No 12/28/24 10:19 HX of N/V After Surgery No 12/28/24 10:19 Non-Smoker Yes 12/28/24 10:19 Duration of Surgery greater Yes 12/28/24 10:19 than 60 minutes Number of Risk Factors 2 12/28/24 10:19 PONV Score Moderate Risk 12/28/24 10:19 Height & Weight Height & Weight: Anesthesia: Height & Weight Height 6 ft 2 in 01/24/25 06:23 Weight: 119 kg 01/24/25 06:23 Body Mass Index (BMI) 33.7 01/24/25 06:23 Respiratory Assessment Respiratory Assessment - court bailiff or sheriff: Respiratory Tract Infection Hx - court bailiff or sheriff Hx Respiratory Tract Infection No 12/28/24 10:19 STOP Sleep Apnea STOP Sleep Apnea - court bailiff or sheriff: STOP Sleep Apnea - court bailiff or sheriff Hx Hypertension No 12/28/24 10:19 Hx Sleep Apnea No 12/28/24 10:19 CPAP BIPAP Do you snore loudly (louder No 12/28/24 10:19 than talking or can be heard Do you often feel tired/ No 12/28/24 10:19 fatigued/ sleepy during daytime? Has anyone observed you stop No 12/28/24 10:19 breathing during sleep? STOP Results Negative 12/28/24 10:19 QUESTION #5 FULL TEXT : Do you snore loudly (louder than talking or can be heard through closed doors)? 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 Specify any problems Hx of Preganancy in last 3 N/A 12/28/24 10:19 Months Nurse Filling Out Transfusion VCHRISTIN 12/28/24 10:19 & Questions: Date: 12/28/24 12/28/24 10:19 Time: 10:20 12/28/24 10:19 Patient unable to answer at this time (ie. confused, unrespo /Reproduction History /Reproductive History - court bailiff or sheriff: /Reproductive Hx- court bailiff or sheriff Hx Now No 12/28/24 10:19 Gestational Age (in weeks): EDC: Hx Hx Para Hx Section SAB No 12/28/24 10:19 Active Medications Active Medications: Current Medications Generic Name Dose Route Start Last Admin Trade Name Freq PRN Reason Stop Dose Admin Acetaminophen 1,000 mg 01/24/25 09:00 01/24/25 06:31 Acetaminophen 500 Mg Tablet PO 01/24/25 09:01 1,000 mg PREOP ONE Administration Celecoxib 400 mg 01/24/25 09:00 01/24/25 06:31 Celecoxib 200 Mg Capsule PO 01/24/25 09:01 400 mg PREOP ONE Administration Sodium Chloride 77.9 ml/ 0 ml 01/24/25 09:00 Ropivacaine 200 mg/ OPERA.SITE 01/24/25 09:01 Epinephrine HCl 0.6 mg/ INTRAOP ONE Ketorolac Tromethamine 30 mg/ Morphine Sulfate 5 mg Dexamethasone Sodium Phosphate 10 mg 01/24/25 09:00 Dexamethasone 10 Mg/Ml Vial IV 01/24/25 09:01 INTRAOP ONE Gabapentin 600 mg 01/24/25 09:00 01/24/25 06:31 Gabapentin 600 Mg Tablet PO 01/24/25 09:01 600 mg PREOP ONE Administration Lactated Ringer's 1,000 mls @ 999 mls/hr 01/24/25 09:00 01/24/25 06:08 IV 01/24/25 10:00 999 mls/hr .Q1H1M ANALI Administration Cefazolin Sodium 2 gm/ Sodium 110 mls @ 150 mls/hr 01/24/25 09:00 Chloride IV 01/24/25 09:43 INTRAOP ONE Vancomycin HCl 1,750 mg/ 535 mls @ 167 mls/hr 01/24/25 09:00 01/24/25 06:31 Sodium Chloride IV 01/24/25 12:12 167 mls/hr INTRAOP ONE Administration Tranexamic Acid 1,000 mg/ 110 mls @ 660 mls/hr 01/24/25 09:00 Sodium Chloride IV 01/24/25 09:09 INTRAOP ONE Tranexamic Acid 1,000 mg/ 110 mls @ 660 mls/hr 01/24/25 09:00 Sodium Chloride IV 01/24/25 09:09 INTRAOP ONE Lactated Ringer's 1,000 mls @ 999 mls/hr 01/24/25 09:00 IV 01/24/25 10:00 .Q1H1M ANALI Lactated Ringer's 1,000 mls @ 125 mls/hr 01/24/25 09:00 IV 01/24/25 16:59 .Q8H ANALI Insulin Human Lispro 1 - 6 unit 01/24/25 09:00 Insulin Lispro 100 Unit/Ml Insuln.Pen SC Q4H PRN PRN BG>/= 180, SEE PROTOCOL Protocol PFSH Medical History Pre-op testing Wears dentures Alcohol use History of steroid therapy Back pain Non-smoker History of edema History of stress test Arthritis Home Medications ?Medication ?Instructions ?Recorded ?Last Taken ?Type tamsulosin 0.4 mg capsule 0.4 mg PO DAILY 06/06/16 01/23/25 History aspirin 81 mg tablet,delayed 81 mg PO DAILY 05/13/18 01/17/25 History release meloxicam 15 mg tablet 15 mg PO DAILY 12/28/24 01/23/25 History Allergy/AdvReac Type Severity Reaction Status Date / Time Penicillins (PCN) Allergy Hives Verified 01/24/25 06:07 Gadolinium-MRI Contrast AdvReac Nausea Verified 01/24/25 06:07 Medium Surgical History Hx of knee surgery History of surgical procedure on eye proper using laser Hx of bilateral cataract extraction Hx of shoulder surgery History of arthroplasty of left shoulder History of carpal tunnel surgery of right wrist Hx laparoscopic cholecystectomy History of back surgery History of total right knee replacement History of total left knee replacement History of back surgery Hx of arthroscopic knee surgery Total knee replacement status Social History Smoking Status: Never smoker alcohol intake: former substance use type: does not use what type of physical activity do you participate in: walking and bicycling frequency: 3-4 times per week Review of Systems (Anesthesia) ROS Narrative System reviewed and no additional complaints, except as documented.
--- NOTE | 2025-01-24 08:52 | OP.PCM_ITS ---
Operative Report (Standard) Operative Information Date of Procedure: 01/24/25 Pre-Operative Diagnosis: Primary right glenohumeral osteoarthritis with glenoid erosion Post-Operative Diagnosis: Primary right glenohumeral osteoarthritis with glenoid erosion Surgery/Procedure Performed: Right reverse total shoulder replacement spinner operator: Yes Medical Payment Poster: Onelia Perkins Tasks completed by or first assist registered nurse: Other (See body of operative report) Additional preschool assistant?: No Type of Anesthesia: General RN Documented Start/Stop Times: Operation Date: 01/24/25 07:30 Case Time Into Pre-Op 01/24/25 05:44 Anesthesia Start 01/24/25 07:27 Into Room 01/24/25 07:27 Out of Pre-Op 01/24/25 07:27 Procedure Start 01/24/25 07:59 Procedure End 01/24/25 09:48 Anesthesia End 01/24/25 09:56 Out of Room 01/24/25 09:56 Into Recovery 01/24/25 09:58 Procedure Start Time: 07:59 Procedure Stop Time: 09:48 Select all DRAINS/GRAFTS/IMPLANTS that apply: None Special Medications: Ancef, vancomycin Estimated Blood Loss: 150 mL Fluids Replaced: 1200 mL crystalloid Specimen collected: No Description of surgery: Components used 1. Tournier perform glenoid full wedge, 29 mm baseplate 2. Tournier perform 40 mm, 0 mm Glenosphere 3. Tournier perform 40 mm, 0 mm humeral liner 4. 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 Patient failed conservative measures as mentioned in the H&P. After discussion of risk and benefits of reverse total shoulder replacement including but not limited to blood loss, DVTs, PEs, nerve vessel damage, infection, general risk of anesthesia including loss of life, instability and stiffness patient demonstrating understanding wish to proceed was able to sign informed consent. Medical clearance was obtained. Procedure: On the date of the procedure, patient's R upper extremity was marked in the preoperative area. Patient was taken back to the operating room where they were placed on the table in the supine position. Anesthesia assumed control of the C-spine and airway, then administered anesthetic. All bony prominences were identified well-padded, the head was secured and the patient was placed in the beachchair position at about 35? inclination. Anesthesia remained in control of the C-spine airway throughout the remainder of the procedure. Patient was then appropriately fastened to the table and the R upper extremity was prepped in a sterile fashion. The surgeons then scrubbed. Upon reentering the room, the R upper extremity was draped in a sterile fashion and the incision was marked out. Timeout was called, everyone agreed upon the side, the site, the procedure to be performed, patient identity and antibiotics given. Incision was taken down through skin and subcutaneous tissue, fat down to fascia. The stripe of the deltopectoral interval and cephalic vein were identified and blunt dissection was used to retract the deltoid. The cephalic vein was retracted laterally. Clavipectoral fascia was then incised and a cobra retractor was placed in the wound. The proximal one third of the pectoralis major insertion was released. Pectoralis tendon insertion was used to tenodesed the biceps tendon which was identified in the bicipital groove. Tenodesis was done with #1 Vicryl. Proximally we followed the biceps tendon after transecting it into the rotator interval. The rotator interval was split and the arm was externally rotated. The split was 1 cm medial to the bicipital groove. Subscapularis tendon was released. We released down the anterior portion of the humeral head and a jackson elevator was used to release the inferior portion of the humeral head. The arm was externally rotated and the shoulder was dislocated. The humeral head was then cut at its natural retroversion. Once his humeral he ad cut was made humerus was retracted out of the way and the glenoid was exposed. After exposing the glenoid, the labrum and the remaining proximal biceps were debrided. At this time we are able to view the entire outer edge of the glenoid. A central pin was placed we sequentially reamed over this central pin to 29mm. Once this was completed the central screw was measured and found to be. The glenoid baseplate was screwed into place. Wound was closely irrigated out with normal saline we then drilled sequentially for 2 screws. Screws were placed superiorly and inferiorly and tightened down the screws. Once the screws were appropriately tightened into place the glenoid baseplate was compressed against the exposed subchondral bone. A 42mm glenosphere was impacted into place engaging the Alaniz taper and tightened the central screw. Attention was then turned towards the humerus. The humerus was again externally rotated exposing the proximal portion of the humerus. Central canal finder was then used to open up the canal. We reamed to a size 4 reamer. We then broached to a size 4 stem. We trialed the 0mm liner. We obtained an adequate reduction at this time with a nice stable shoulder. Good internal rotation to the gluteus, forward elevation to 140?, external rotation to 20?. Final components were then assembled on the back table, trials were removed and the wound was copiously irrigated with normal saline after dislocating the shoulder. Once the final components were assembled they were impacted into place. Shoulder was then reduced and found to be stable with good range of motion. Subscapularis tendon was repaired using #2 FiberWire. The wound was with chlorhexidine solution then copiously irrigated out with a 1 L normal saline lavage. The deltopectoral fascia was then closed using #1 Vicryl skin was closed using 2-0 Vicryl interrupted sutures and final skin closure was done with 3-0 stratafix. Steri-Strips are placed for final skin closure. Sterile dressing was placed patient was then placed in a sling and awakened by anesthesia. Patient was then transferred to the PACU for recovery. Postoperative plan: Patient will be admitted to the hospital overnight. They will get physical therapy starting in 2 weeks with normal postoperative regimen. Patient will be placed on [] for DVT prophylaxis. The first postoperative appointment will be in 2 weeks for wound check and initiation of phase 1 physical therapy. During the course of the procedure the physician preschool assistant played a vital role. His intimate knowledge of my steps in the procedure aided in safe and expedient completion of the procedure. The PA played a vital rolls in positioning particularly in obtaining the appropriate beach chair position and securing the patient's body and head to the table. The PA was also vital in the retraction of soft tissues during the exposure and especially the glenoid work as this is a vital part of the procedure to prevent neurovascular damage. the PA was also vital and protecting soft tissues during times of bony cuts and reaming. He also played a vital role in closure with my direct supervision. The PA was also important during reduction and dislocation of the joint and trials intraoperatively. Surgical Findings: Stable shoulder. Stage IV osteoarthritis Complications Complications: No Admit VTE Documentation VTE Present on Admission: No VTE Mechan Device Prophylaxis: SCD's and Knee High IMELDA Hose VTE Pharm Prophylaxis ordered?: Yes
--- NOTE | 2025-01-24 10:02 | PCM.POST.ANE ---
Anesthesia: Postop Eval I Current Vital Signs Temperature: 97.7 F Pulse Rate: 53 Blood Pressure: 136/78 Respiratory Rate: 16 Pulse Ox: 97 Assessment Airway patent: Yes Spontaneous unlabored respirations: Yes nausea: No Vomiting: No Anesthesia Complication: No Fluid Hydration Crystalloid volume administer (ml): 1,400 Total IV fluid infused: 1,400 Progress Note Anesthesia document: Postop Eval 1 completed: Yes
--- NOTE | 2025-01-24 10:15 | RAD_ITS ---
PROCEDURE: SHOULDER MIN 2 VIEWS 01/24/2025 REASON FOR EXAM: TSA Status post right shoulder replacement. TECHNIQUE: SHOULDER MIN 2 VIEWS COMPARISON: None FINDINGS: Two views were obtained following reverse shoulder replacement. There is good alignment. Postoperative soft tissue changes. RAD/Shoulder min 2 Views IMPRESSION: Status post right reverse shoulder replacement. There is good alignment. Postoperative soft tissue changes. Reading Location: [facility]
[2025-01-24] MEDS: LR 1,000 ML - BOLUS POSTOP 999 ML IV (10:18)
--- NOTE | 2025-01-24 10:52 | POSTOPAN2_ITS ---
Anesthesia Postop Eval I Sum Postop Eval Completion status Anesthesia document: Postop Eval 1 completed: Yes Anesthesia Postop Eval I Summary Anesthesia Postop Eval I Summary: Anesthesia Postop Eval I: Assessment Summary Airway patent Yes 01/24/25 10:02 [email or web address] Spontaneous unlabored Yes 01/24/25 10:02 [email or web address] respirations Mental status nausea No 01/24/25 10:02 [email or web address] Vomiting No 01/24/25 10:02 [email or web address] Anesthesia Postop Eval I: Fluid Summary Crystalloid volume administer 1,400 01/24/25 10:02 [email or web address] (ml) Colloids volume administered ( ml) Blood Product volume administered (ml) Total IV fluid infused 1,400 01/24/25 10:02 [email or web address] Anesthesia Postop Eval I: Summary Notes Anesthesia Complication No 01/24/25 10:02 [email or web address] Anesthesia Complication Comment: Post-operative progress note Anesthesia: Postop Eval II Evaluation Mental status: Awake Pain Level: 3 nausea: No Vomiting: No
--- NOTE | 2025-01-24 10:52 | PCM.POSTANE2 ---
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 Spontaneous unlabored Yes 01/24/25 10:02 [email or web address] respirations Mental status nausea No 01/24/25 10:02 [email or web address] Vomiting No 01/24/25 10:02 [email or web address] Anesthesia Postop Eval I: Fluid Summary Crystalloid volume administer 1,400 01/24/25 10:02 [email or web address] (ml) Colloids volume administered ( ml) Blood Product volume administered (ml) Total IV fluid infused 1,400 01/24/25 10:02 [email or web address] Anesthesia Postop Eval I: Summary Notes Anesthesia Complication No 01/24/25 10:02 [email or web address] Anesthesia Complication Comment: Post-operative progress note Anesthesia: Postop Eval II Evaluation Mental status: Awake Pain Level: 3 nausea: No Vomiting: No
[2025-01-24] MEDS: Cefazolin 1 GM/50 ML BAG IV (11:26)
== END 2025-01-24 12:12 | disposition home or self-care (01) ==
LOC: SDC 05:30 → AC 05:31
PROVIDERS: Anesthesiology; PCP Family Medicine; Referring Provider Specialist; Visit Provider Specialist
PROC: (CPT 23472; principal; 2025-01-24 07:00)
DX: M19.011 Primary osteoarthritis, right shoulder (principal); X58.XXXA Exposure to other specified factors, initial encounter; Z79.899 Other long term (current) drug therapy
CPT/HCPCS: 23472; 01638; 64415; 36415; 73030; 80048; 82040; 82962; 83735; 85027; 87081; 93005; C1713; C1776; A4216; J2405; J3475

== ENCOUNTER 2025-04-22 14:00 | Outpatient (RCR) | payer MEDICARE, OTHER, SELFPAY ==
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
--- NOTE | 2025-02-07 17:20 | HP.PTEVAL ---
Patient's Visit Information Visit Information Visit Information: COLIN GRAFF is a 69 year old M referred to Physical Therapy by Dr. Richie Cowan MD with a diagnosis of R rev TSA 01/24/25. Date of Evaluation: 02/07/25 Physical Therapist: Praveen Jackson, PT, ATC Visit Plan Frequency: 2x /Week Duration: 2 Months Plan: Phase 1 and Phase 2 ex's at this time. Begin strengthening at week 6 consisting or rotator cuff strengthening and scap stab ex's Subjective Subjective: DOS: 01/24/25. Pt reports he had a R reverse TSA performed at that time. Pt reports he had severe pain in his R shoulder prior to having his surgery. Pt notes he is in very little pain today. Pt denies any tingling or numbness in R UE this date. Pt denies sleep difficulty at this time secondary to pain. Pt is L hand dominant. Pt is retired at this time. Pt notes he is able to perform most of his ADL's at this time, but is unable to reach overhead or across his body. Pt notes he had a L rot cuff repaired 3 years ago. Pt reports he doesnt really have any pain at this time, but just feels really stiff at this time secondary to wearing his brace. Pain R shoulder: Pain Intensity (Out of 10): 0 Pain Intensity Range: 1 Objective Objective: Neuro: B UE sensation is WNL to light touch Observation: Incision is healed. No signs of infection. AROM: R shoulder flex= 80 degrees; L shoulder flex= 140, abd= 150, IR= WNL, ER= 35 degrees MMT: L shoulder flex= 10, abd= 12, IR= 12, ER= 8 #F Balance/Special Test Scores Quick DASH Score: 100.0000 Goals Goal 1:: Decrease R shoulder pain x 50% to aid with IADL's Goal Time Frame: 6-8 Weeks Goal 2:: Increase R shoulder flex and abd ROM x 30 degrees to aid with overhead lifting Goal Time Frame: 6-8 Weeks Goal 3:: Increase R shoulder strength to be 90% equal to L shoulder strength Goal Time Frame: 6-8 Weeks Goal 4:: I with HEP Goal Time Frame: 6-8 Weeks Rehabilitation Potential Physical Therapy Diagnosis: Pt has R shoulder pain, weakness, and limited ROM secondary to R rev TSA Rehabilitation Potential: Good Anticipated Interventions Patient/Client Instruction: Educate patient on: Condition and Plan of Care For the Purpose of:: To improve self management Therapeutic Exercise to Include: Strength training, Endurance training, Flexibilty training, Passive ROM, Active ROM and Scapular Strength/Stabilization For the Purpose of:: To decrease pain, To increase ROM and To improve muscle performance and motor function Cryotherapy (ice pack, ice massage): Yes For the Purpose of:: To decrease pain Text: Thank you for the opportunity to evaluate your patient. For Medicare and Medicare HMO plans, please review the plan of care and approve it. It will need to be FAXED BACK to us at [phone] for Medicare purposes. For Medicare only, by signing this I certify the plan of care. Please let me know if there are questions or concerns regarding this plan of care. Physician Signature: Date:
--- NOTE | 2025-04-22 14:40 | HP.PTDCSUM ---
Discharge Summary D/C summary: It has been my pleasure to treat COLIN GRAFF referred by Dr. Richie Cowan MD, with the diagnosis of R rev TSA 01/24/25 for a total of 22 visit(s). Discharge Date: Please see the following information for a summary of their discharge status. Subjective Subjective: I am ready to be discharged Pain R shoulder: Pain Intensity (Out of 10): 0 Overall Improvement % Improvement: 100 Objective Objective/Function: R shoulder pain 0/10 Pt is I with HEP R shoulder ROM: flex= 120, abd= 105, IR= WNL, ER= 40 degrees R shoulder MMT: flex= 16, abd= 25, IR= 10, ER= 15 #F I with HEP Goals Goal 1:: Decrease R shoulder pain x 50% to aid with IADL's Goal 2:: Increase R shoulder flex and abd ROM x 30 degrees to aid with overhead lifting Goal 3:: Increase R shoulder strength to be 90% equal to L shoulder strength Goal 4:: I with HEP Plan Plan: Discharge to [facility] D/C Information d/c sentence: If there are questions or concerns regarding this patient's physical therapy, please feel free to call me at [phone]. Thank you for the referral of this patient. Sincerely, Praveen Jackson, PT, ATC Balance/Gait/Functional tests Balance/Special Test Scores Quick DASH Score: 0 Improvement % Improvement: 100
== END 2025-04-22 19:00 | disposition home or self-care (01) ==
LOC: PT 14:00
PROVIDERS: PCP Family Medicine; Referring Provider Specialist; Visit Provider Specialist
DX: Z47.1 Aftercare following joint replacement surgery (principal); Z96.611 Presence of right artificial shoulder joint; M19.011 Primary osteoarthritis, right shoulder
CPT/HCPCS: 97110; 97140; 97161; 97530